=== PATIENT | male | born 1965 | race Caucasian/White ===

== ENCOUNTER 2023-03-01 07:27 | Outpatient (OUT) | payer BC, SELFPAY ==
--- NOTE | 2023-03-01 08:20 | NM_ITS ---
Patient: RANULFO LEE Exam Date: 03/01/2023 : 1965 Gender:M Ordering : EDVIN JAMES [facility] Admission #: [id number] Family : Order #: [id number] CLICK HERE TO VIEW EXAM RADIOLOGY REPORT PROCEDURE: NM JAVIER PERF SPECT REST STR COMPARISON: None. INDICATIONS: Chest pain TECHNIQUE: Exam Description: Stress/Rest two day protocol gated SPECT Rest Imagin.6 mCi Tc-99m Cardiolite IV on 03/02/2023 Stress Imaging 25.3 mCi Tc-99m Cardiolite IV on 03/01/2023 Exercise Protocol: 0.4 mg Lexiscan given IV Heart Rate (bpm): Rest: 71 Max: 89 PMHR: 54 Blood Pressure: Rest: 120/74 Max: 132/74 Symptoms: Rest and peak stress ECG findings were abnormal and the exercise portion of the study was abnormal per attending physician Dr. Santillan due to downsloping inferior leads. For more details please see separate cardiac stress test report. FINDINGS: QUALITY OF STUDY: Excellent. PERFUSION DEFECT: LOCATION: Mid-anteroseptal. Apical septal. SIZE: Small (1-2 segments). SEVERITY: Moderate. TYPE: Reversible. WALL MOTION: Normal. LV SIZE: Enlarged; EDV 125 mL. TID / TCD: None; 1.0 LVEF: Normal. Calculated EF 61%. SUMMARY: Myocardial perfusion imaging study has ABNORMAL findings. CONCLUSION: 1. Mid and apical anterior septal reversible perfusion defect suggestive of acute ischemia. Consideration is also given to anterior soft tissue attenuation artifact. 2. Left ventricle size is at upper limits of normal to minimally enlarged, 125 mL 3. Normal ejection fraction and wall motion. Dictated by: Scottie Kennedy M.D. on 03/02/2023 at 15:10 Approved by: Scottie Kennedy M.D. on 03/02/2023 at 15:19
[2023-03-01] MEDS: REGADENOSON 0.4 MG/5 ML SYRINGE IV (09:12)
--- NOTE | 2023-03-01 18:31 | PM.STRESS ---
Stress Test Stress Test Allergies Allergy/AdvReac Type Severity Reaction Status Date / Time Penicillins Allergy Verified 03/01/23 10:40 Requesting physician: EDVIN JAMES Procedure: Lexiscan stress test General Information: Reason for Stress Test: chest pain Cardiac History and Risk Factors: Denies any Resting 12 - Lead Electrocardiogram: Normal sinus, HR 71. Flattened T-waves across all leads, biphasic in III and aVF Stress Test: Protocol: Lexiscan followed by Cardiolite Blood Pressure Response: Max 132/70 Rhythm: Remained in normal sinus. Max HR 89, 54% max predicted. ST - Response: ST segment downsloping in II, III, and aVF after Lexiscan. Patient Response: None Interpretation: Positive stress test with ST segment downsloping in the inferior leads. Cardiolite interpretation reported separately. Clinical correlation required.
== END 2023-03-01 07:28 ==
PROVIDERS: PCP Family Medicine; Visit Provider Nurse Practitioner Family
DX: R07.89 Other chest pain (principal)
CPT/HCPCS: 78452; 93017; A9500; J2785

== ENCOUNTER 2023-03-14 13:46 | Outpatient (OUT) | payer BC, SELFPAY ==
[2023-03-14 14:52] LABS: Anion Gap 13.2; BUN Creatinine Ratio 13.9; Calcium 8.9 mg/dL (8.5-10.1); Carbon Dioxide 26.5 mmol/L (21.0-32.0); Chloride 102 mmol/L (98-107); Chol HDL Ratio 3.6; Cholesterol 188 mg/dL (<=200); Estimated GFR (African America >60 (>=60); Estimated GFR (Non-African Ame >60 (>=60); Glucose 137 mg/dL (74-106); HDL Cholesterol 52 mg/dL (40-60); Potassium 3.7 mmol/L (3.5-5.1); Sodium 138 mmol/L (136-145); Triglycerides 155 mg/dL (<=150)
== END 2023-03-14 13:47 ==
LOC: LAB 13:47
PROVIDERS: PCP Family Medicine
DX: E78.5 Hyperlipidemia, unspecified (principal); I10 Essential (primary) hypertension
CPT/HCPCS: 36415; 80048; 80061

== ENCOUNTER 2023-04-16 12:00 | Outpatient (OUT) | payer BC, SELFPAY | END 2023-04-16 12:01 | disposition home or self-care (01) | LOC: PST 04-20 18:57 | PROVIDERS: PCP Family Medicine; Visit Provider Surgery | DX: Z01.818 Encounter for other preprocedural examination (principal); R19.5 Other fecal abnormalities ==

== ENCOUNTER 2023-04-17 14:50 | Outpatient (OUT) | payer BC, SELFPAY ==
--- NOTE | 2023-03-02 14:30 | CA_ITS ---
Patient: RANULFO LEE Exam Date: 03/02/2023 : 1965 Gender:M Ordering : EDVIN JAMES [facility] Admission #: [id number] Family : Order #: [id number] CLICK HERE TO VIEW EXAM ECHOCARDIOGRAM REPORT PROCEDURE: CA ECHO DOPPLER COMPLETE INDICATIONS: Chest pain COMPARISON: None. DESCRIPTION: COMPLETE ECHOCARDIOGRAM Real-time transthoracic echocardiography with 2D, M-mode, spectral and color flow Doppler performed. QUALITY: Technically difficult due to patients condition. LEFT VENTRICLE: Normal chamber size. Moderate concentric hypertrophy. Normal systolic function. LV EF: Normal left ventricular ejection fraction, (>55%). DIASTOLIC: Normal diastolic function. ATRIAL SEPTUM: Visually appears intact. LEFT ATRIUM: Normal chamber size. RIGHT ATRIUM: Normal chamber size. RIGHT VENTRICLE: Normal chamber size. Normal right ventricular systolic function. TRICUSPID VALVE: Normal mobility and thickness. No stenosis with trivial regurgitation. MITRAL VALVE: Normal mobility and thickness. No evidence of mitral valve stenosis. There is no mitral annular calcification. No mitral regurgitation. AORTIC VALVE: Normal trileaflet appearance. No visible sclerosis. Normal leaflet mobility. No evidence of aortic valve stenosis. No aortic regurgitation. AORTIC ROOT: Normal diameter and appearance. PULMONIC VALVE: Normal thickness and mobility. No stenosis. No regurgitation. PERICARDIUM: No evidence of pericardial effusion. IVC: Collapses with inspirations. PLEURA: CONCLUSION: 1. Moderate concentric left ventricular hypertrophy with normal systolic function. LVEF is 55 to 60% 2. Normal diastolic function. 3. No significant valvular dysfunction. 4. Unable to assess right-sided pressures due to lack of measurable tricuspid regurgitation. 5. No pericardial effusion. Adult Echocardiography Procedure Report Left Ventricle LVEDD (3.7 - 5.6 cm): 4.12 cm LVESD (2.2 - 4.0 cm): 2.94 cm LVIVS thickness (0.6 - 1.2 cm): 1.50 cm LVPW thickness (0.5 - 1.0 cm): 1.21 cm e': 0.12 m/s E - e': 6.50 LVOT Diameter 2.09 cm Left Atrium Left Atrium Systolic Dimension: 3.32 cm Mitral Valve MV E to A Ratio: 0.90 Mitral Valve A-Wave Peak Velocity: 0.87 m/s Mitral Valve E-Wave Peak Velocity: 0.78 m/s Right Ventricle Aorta AO Root Diam: 3.81 cm Ascending Ao Diam: 3.33 cm Aortic Valve Peak Velocity(Antegrade Flow): 1.84 m/s Peak Gradient(Antegrade Flow): 13.57 mm[Hg] Tricuspid Valve Pulmonic Valve Mean Gradient: 4.26 mm[Hg] Mean Velocity: 0.98 m/s Peak Velocity: 1.37 m/s, 1.35 m/s Peak Gradient: 7.50 mm[Hg], 7.50 mm[Hg], 7.18 mm[Hg] Right Atrium Dictated by: Donnie Angel M.D. on 03/07/2023 at 11:12 Approved by: Donnie Angel M.D. on 03/07/2023 at 11:16
== END 2023-04-17 14:51 | disposition home or self-care (01) ==
PROVIDERS: PCP Family Medicine; Visit Provider Nurse Practitioner Family
DX: R07.89 Other chest pain (principal)
CPT/HCPCS: 93306

== ENCOUNTER 2023-04-25 09:49 | Day surgery (SDC) | payer BC, SELFPAY ==
--- NOTE | 2023-04-25 | OP_ITS ---
OPERATION DATE: ??04/25/2023 PREOPERATIVE DIAGNOSIS:? Colorectal screening. POSTOPERATIVE DIAGNOSIS:? 3 mm rectal polyp. PROCEDURE:? Colonoscopy to cecum with cold snare polypectomy x1 for a 3 mm rectal polyp. SURGEON:? Horacio Bray M.D. ANESTHESIA:? Monitored anesthesia care. ESTIMATED BLOOD LOSS:? Less than 1 mL. INDICATIONS AND CONSENT:? Patient is a 57-year-old male presents for colorectal screening.? Indications, risks, benefits, alternatives of proceeding with colonoscopy were explained extensively to the patient, including the risks of bleeding, colon perforation or anesthetic complications.? All of his questions were answered.? Informed consent was obtained.? PROCEDURE:? Patient brought to the operating room, placed in the left lateral decubitus position.? Monitored anesthesia care was provided.? Rectal exam was performed which showed no masses or blood.? The scope was inserted into the anal canal.? Under direct visualization was advanced.? It was advanced to the cecum where cecal markings were clearly identified.? There was noted to be a good prep.? Upon withdrawal of the scope, mucosal surfaces were carefully examined.? There were no mass lesions or inflammatory changes.? There were rare sigmoid diverticula without inflammatory changes or scarring.? Within the lower rectum, there was noted to be a 3 mm sessile polyp that was removed with cold snare with good hemostasis.? The scope was retroflexed in the anal canal.? There was no significant hemorrhoidal disease.? There were noted to be some prominent rectal veins.? The scope was then withdrawn.? Patient tolerated procedure well.? Follow up colonoscopy will likely be in 5 years, but will depend on the pathology report.? CC:? Sherry Muñoz
[2023-04-25 10:11] VITALS: BP 155/81; PULSE 58; RESP 18; TEMP 36.3; O2SAT 94; BMI 48.8
[2023-04-25 10:18] LABS: Glucometer 134 mg/dL (74-106)
[2023-04-25] MEDS: LACTATED RINGER'S SOLUTION 1,000 ML 50 ML IV (10:24)
[2023-04-25 11:45] VITALS: BP 99/53; PULSE 56; RESP 18; TEMP 36.6; O2SAT 93
[2023-04-25 12:00] VITALS: BP 109/59; PULSE 55; RESP 18; O2SAT 94
[2023-04-25 12:15] VITALS: BP 131/70; PULSE 56; RESP 18; O2SAT 94
== END 2023-04-25 12:15 | disposition home or self-care (01) ==
PROVIDERS: PCP Family Medicine; Visit Provider Surgery
PROC: (CPT 45385; principal; 2023-04-25 12:55)
DX: Z12.11 Encounter for screening for malignant neoplasm of colon (principal); D12.8 Benign neoplasm of rectum; E11.9 Type 2 diabetes mellitus without complications; I10 Essential (primary) hypertension; E66.01 Morbid (severe) obesity due to excess calories; Z68.42 Body mass index [BMI] 45.0-49.9, adult; G47.33 Obstructive sleep apnea (adult) (pediatric); Z79.82 Long term (current) use of aspirin; Z79.84 Long term (current) use of oral hypoglycemic drugs; Z79.899 Other long term (current) drug therapy; R19.5 Other fecal abnormalities
CPT/HCPCS: 45385; 36415; 82948; 88305; J2704

== ENCOUNTER 2023-09-28 11:06 | Outpatient (OUT) | payer BC, SELFPAY ==
[2023-09-28 11:46] LABS: Cholesterol 156 mg/dL (<=200)
[2023-09-28 11:57] LABS: HDL Cholesterol 50 mg/dL (40-60); Triglycerides 204 mg/dL (<=150); VLDL CHOLESTEROL 40.8 mg/dL
[2023-09-28 12:02] LABS: Chol HDL Ratio 3.1
== END 2023-09-28 11:07 | disposition home or self-care (01) ==
LOC: LAB 11:07
PROVIDERS: PCP Family Medicine; Visit Provider Nurse Practitioner Acute Care
DX: E78.2 Mixed hyperlipidemia (principal); I25.10 Atherosclerotic heart disease of native coronary artery without angina pectoris
CPT/HCPCS: 36415; 80061

== ENCOUNTER 2023-11-21 09:34 | Outpatient (OUT) | payer BC, SELFPAY ==
--- OUTSIDE RECORDS SUMMARY | 2023-11-21 09:38 | XMS_ITS | CCD ---
Author Name Unknown Address [address] [facility] [address] [place] [id number] Organization [facility] Care Team Providers Care Custom Bike Builder Name Role Phone ADOLFO ., DR CONRAD Primary Care Unavailable MARKER ., DR DOLL Attending Unavailable MARKER ., DR DOLL Consulting Unavailable MARKER ., DR DOLL Admitting Unavailable JASKARAN WENDY Consulting Unavailable EDVIN JAMES Attending Unavailable EDVIN JAMES Consulting Unavailable EDVIN JAMES Admitting Unavailable HOAdarsh ., DR CONRAD Primary Care Unavailable EDVIN JAMES Consulting Unavailable EDVIN JAMES Admitting Unavailable ADOLFO ., DR CONRAD Primary Care Unavailable EDVIN JAMES Attending Unavailable Anamaria Mata Primary Care Physician Horacio SARABIA Attending Unavailable Anamaria Mata Referring Unavailable Horacio SARABIA Attending Unavailable DONALD SENA Admitting Unavailable DONALD SENA Attending Unavailable DONALD SENA Attending Unavailable RAMOS HARO Attending Unavailable RAMOS HARO Attending Unavailable DONALD SENA Referring Unavailable Allergies Allergy Classification Reported Allergen(s) Allergy Type Date of Onset Reaction(s) Facility (2 sources) Ciprofloxacin; Translations: [Cipro] Drug Allergy 1 [facility] Repository (2 sources) Clindamycin; Translations: [clindamycin] Drug Allergy 1 [facility] (3 sources) Penicillin; Translations: [penicillin] Drug Allergy 1 Anaphylactic reaction [facility] Repository (1 source) Penicillin; Translations: [PENICILLIN G] Drug Allergy 3 [facility] Repository Medications Current Medications Medication Drug Class(es) Dates Sig (Normalized) Sig (Original) allopurinol 300 mg oral tablet (1 source) Xanthine Oxidase Inhibitor Start: 01-11-2021 take 1 tablet by mouth once daily allopurinol 300 mg Tab 300 mg = 1 tab(s), Oral, Daily, Gout pain Start Date: 01/11/21 Status: Ordered aspirin 81 mg delayed release oral tablet (1 source) Platelet Aggregation Inhibitor, Nonsteroidal Anti-inflammatory Drug Start: 03-28-2023 take 1 tablet by mouth once daily aspirin 81 mg Oral EC Tab 81 mg = 1 tab(s), Oral, Daily, Refills(s) 0 Start Date: 03/28/23 Status: Ordered atorvastatin 40 mg oral tablet (1 source) HMG-CoA Reductase Inhibitor Start: 03-28-2023 take 1 tablet by mouth once daily atorvastatin 40 mg Tab 40 mg = 1 tab(s), Oral, Daily, Refills(s) 0 Start Date: 03/28/23 Status: Ordered carvedilol 12.5 mg oral tablet (1 source) alpha-Adrenergic Brayden, beta-Adrenergic Brayden Start: 03-28-2023 take 1 tablet by mouth twice daily carvedilol 12.5 mg Tab 12.5 mg = 1 tab(s), Oral, BID, Refills(s) 0 Start Date: 03/28/23 Status: Ordered colchicine 0.6 mg oral tablet (1 source) Start: 03-07-2023 take 1 tablet by mouth once daily colchicine 0.6 mg Tab 0.6 mg = 1 tab(s), Oral, Daily, Refills(s) 0 Start Date: 03/07/23 Status: Ordered 24 hr isosorbide mononitrate 60 mg extended release oral tablet (1 source) Nitrate Vasodilator Start: 03-28-2023 take 1 tablet by mouth once daily in the morning isosorbide mononitrate 60 mg ER Tab 60 mg = 1 tab(s), Oral, qAM, Refills(s) 0 Start Date: 03/28/23 Status: Ordered metFORMIN hydrochloride 500 mg oral tablet (1 source) Biguanide Start: 03-07-2023 take 1 tablet by mouth twice daily metformin 500 mg Tab 500 mg = 1 tab(s), Oral, BID, Refills(s) 0 Start Date: 03/07/23 Status: Ordered nitroglycerin 0.4 mg sublingual tablet (1 source) Nitrate Vasodilator Start: 03-28-2023 nitroglycerin 0.4 mg sublingual Tab 0.4 mg = 1 tab(s), SubLingual, q5min, PRN for chest pain, Refills(s) 0 Start Date: 03/28/23 Status: Ordered pantoprazole 40 mg delayed release oral tablet (1 source) Proton Pump Inhibitor Start: 03-07-2023 take 1 tablet by mouth once daily Pantoprazole [address] Tab 40 mg = 1 tab(s), Oral, Daily, Refills(s) 0 Start Date: 03/07/23 Status: Ordered Ventolin HFA 90 mcg/inh Aerosol-Adpt (1 source) Start: 03-07-2023 take 1 puff(s) by inhalation every four hours Ventolin HFA 90 mcg/inh Aerosol-Adpt 1 puff(s), Inhalation, q4hr Shortness of breath or wheezing, Refill(s) 0 Start Date: 03/07/23 Status: Ordered Problems Active Problems Problem Classification Problem Date Documented Da te Episodic/Chronic Anxiety disorders (1 source) Anxiety 03-07-2023 Chronic Coronary atherosclerosis and other heart disease (2 sources) Atherosclerotic heart disease of tribal coronary artery without angina pectoris; Translations: [Atherosclerotic heart disease of tribal coronary artery without angina pectoris] Onset: 09-19-2023 Chronic Diabetes mellitus without complication (1 source) Diabetes mellitus 03-07-2023 Chronic Diabetes mellitus without complication (1 source) Other abnormal glucose; Translations: [OTHER ABNORMAL GLUCOSE] Onset: 02-20-2023 Episodic Disorders of lipid metabolism (2 sources) Mixed hyperlipidemia; Translations: [Mixed hyperlipidemia] Onset: 09-19-2023 Chronic Essential hypertension (4 sources) Essential (primary) hypertension; Translations: [Essential hypertension] Onset: 02-14-2023 03-07-2023 Chronic Gout and other crystal arthropathies (2 sources) Gout, unspecified; Translations: [Gout] Onset: 02-14-2023 01-11-2021 Chronic Nonspecific chest pain (4 sources) Other chest pain; Translations: [OTHER CHEST PAIN] Onset: 02-20-2023 Episodic Osteoarthritis (1 source) Arthritis 01-11-2021 Chronic Other aftercare (1 source) Other jail (current) drug therapy; Translations: [OTH ASSISTED CURRENT DRUG THERAPY] Onset: 02-14-2023 Episodic Other aftercare (1 source) 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; Translations: [ASSISTED USE ORAL HYPOGLYCEMIC DX] Onset: 02-14-2023 Episodic Other connective tissue disease (1 source) Disorder of rotator cuff 03-07-2023 Episodic Comment on above: LEFT SHOULDER Other gastrointestinal disorders (1 source) Abnormal feces; Translations: [Other fecal abnormalities] Onset: 03-28-2023 Episodic Other gastrointestinal disorders (1 source) Occult blood in stools 03-07-2023 Episodic Other lower respiratory disease (1 source) Shortness of breath; Translations: [SHORTNESS OF BREATH] Onset: 02-14-2023 Episodic Other nutritional; endocrine; and metabolic disorders (1 source) Obesity, unspecified; Translations: [OBESITY UNSPECIFIED] Onset: 02-14-2023 Chronic Other nutritional; endocrine; and metabolic disorders (1 source) Body mass index (BMI) 45.0-49.9, adult; Translations: [BODY MASS INDEX BMI 45.0-49.9 ADULT] Onset: 02-14-2023 Chronic Other nutritional; endocrine; and metabolic disorders (2 sources) Body mass index 40+ - severely obese; Translations: [Body mass index (BMI) 45.0-49.9, adult] Onset: 03-28-2023 Chronic Other nutritional; endocrine; and metabolic disorders (1 source) Morbid obesity 03-28-2023 Chronic Residual codes; unclassified (1 source) Sleep apnea 03-07-2023 Chronic Residual codes; unclassified (3 sources) Flushing; Translations: [FLUSHING] Onset: 02-13-2023 Episodic Unclassified (1 source) CONTACT W/AND (SUSP) EXPOS COVID-19; Translations: [CONTACT W/AND (SUSP) EXPOS COVID-19] Onset: 02-14-2023 Unclassified (1 source) PERSONAL HISTORY OF COVID-19; Translations: [PERSONAL HISTORY OF COVID-19] Onset: 02-14-2023 Past or Other Problems Problem Classification Problem Date Documented Da te Episodic/Chronic Other screening for suspected conditions (not mental disorders or infectious disease) (4 sources) Encounter for screening for malignant neoplasm of prostate; Translations: [Encounter for screening for malignant neoplasm of rectum] Onset: 02-20-2023 Episodic Results Test Name Value Interpretation Reference Range Facility Office Visiton 09-19-2023 Follow-up visit [id number] Leander Ortiz 1965 M Date Provider Department Center 09/19/2023 DONALD SMITH [facility]ARD [facility] Family History Problem Relation Age of Onset No Known Problems Mother No Known Problems Father Family Status - Relation Status Age at Mother Father Level of Service:88581 MD OFFICE/OUTPATIENT ESTABLISHED LOW MDM 20 MIN Normal [facility] Reminderson 05-10-2023 Reminders - From: Julia Toribio LPN To: N - Clinical; Sent: 05/10/2023 10:41:47 EDT Show up: 03/26/2028 07:00:00 EDT Subject: colonoscopy recall Due Date/Time: 04/25/2028 07:00:00 EDT Reminder/Recall Patient due for surveillance colonoscopy 04/25/2028. Normal [facility] Office Visiton 05-08-2023 Follow-up visit [id number] MicvikijvuenalLeander Mayo 1965 M Date Provider Department Center 05/08/2023 RAMOS VILLARREAL [facility] Family History Problem Relation Age of Onset No Known Problems Mother No Known Problems Father Family Status - Relation Status Age at Mother Father Level of Service:10469 MD OFFICE/OUTPATIENT ESTABLISHED MOD MDM 30-39 MIN Normal [facility] Pathology Noteon 05-01-2023 Pathology Note [id number] #1.00CD:[address] [facility] Outside Colonoscopyon 2022 Outside Colonoscopy [id number] #1.00CD:[address] [facility] Lab Reportson 04-25-2023 Lab Reports [id number] #1.00CD:[address] [facility] CBCon 04-04-2023 Erythrocyte distribution width (RBC) [Ratio] 13.4 % Normal 11.5-15.0 [facility] Comment on above: Performed By: #### L [id number] ####[facility] (BEAKER)[address] [place] [address] ERYTHROCYTE MEAN CORPUSCULAR HEMOGLOBIN CONCENTRATION (G/DL) BY AUTOMATED 34.1 g/dL Normal 32.0-35.0 [facility] Comment on above: Performed By: #### L [id number] ####[facility] (BEAKER)[address] [place] [address] Hematocrit (Bld) [Volume fraction] 40.5 % Normal 39.0-55.0 [facility] Comment on above: Performed By: #### L [id number] ####[facility] (BEAKER)[address] [place] [address] Hemoglobin (Bld) [Mass/Vol] 13.8 g/dL Normal 13.0-17.0 [facility] Comment on above: Performed By: #### L [id number] ####[facility] (BEAKER)[address] [place] [address] MCH (RBC) [Entitic mass] 31.8 pg Normal 27.0-33.0 [facility] Comment on above: Performed By: #### L [id number] ####[facility] (BEAKER)[address] [place] [address] MCV (RBC) [Entitic vol] 93.3 fL Normal 82.0-98.0 [facility] Comment on above: Performed By: #### L [id number] ####[facility] (BEAKER)[address] [place] [address] PLATELETS (10*3/UL) IN BLOOD AUTOMATED COUNT 224 10*3/uL Normal 150-400 [facility] Comment on above: Performed By: #### L [id number] ####[facility] (BEAKER)[address] [place] [address] RBC (Bld) [#/Vol] 4.34 10*6/uL Normal 4.20-5.70 [facility] Comment on above: Performed By: #### L [id number] ####[facility] (BEAKER)[address] [place] [address] WBC (Bld) [#/Vol] 9.13 10*3/uL Normal 4.00-10.[address] [facility] Comment on above: Performed By: #### L [id number] ####[facility] (MULUGETA)[address] [place] [address] HPon 04-04-2023 HP H&P reviewed. The patient was examined and there are no changes to the H&P. Normal [facility] NURSNOTEon 04-04-2023 NURSNOTE RN educated pt on d/c instructions. RN encouraged pt to voice any questions or concerns. Pt verbalizes no questions or concerns at this time. Pt was wheeled off of unit with all of belongings. [facility] Consent for Procedure/Surger yon 03-29-2023 Consent for Procedure/Surgery [id number] #1.00CD:[address] [facility] Facesheeton 03-29-2023 Facesheet [id number] #1.00CD:[address] [facility] Transfer Inon 03-29-2023 Transfer In [id number]# 1.00CD:[address] [facility] Ambulatory Visit Summaryon 0 03-28-2023 Ambulatory Visit Summary LEANDER ORTIZ :1965 Visit Date:03/28/2023 Ambulatory Visit Instructions Your Diagnosis Positive fecal occult blood test BMI 45.0-49.9, adult Your Care Team Attending Physician - NO LUIS, Horacio Lowery Primary Care Physician - Adolfo LUIS, Anamaria Referring Physician - Anamaria Mata MD This Is Your Medications List Contact prescribing physician if questions or concerns albuterol (Ventolin HFA 90 mcg/inh Aerosol-Adpt) allopurinol (allopurinol 300 mg Tab) aspirin (aspirin 81 mg Oral EC Tab) atorvastatin (atorvastatin 40 mg Tab) carvedilol (carvedilol 12.5 mg Tab) colchicine (colchicine 0.6 mg Tab) isosorbide mononitrate (isosorbide mononitrate 60 mg ER Tab) metformin (metformin 500 mg Tab) nitroglycerin (nitroglycerin 0.4 mg sublingual Tab) pantoprazole (Pantoprazole [address] Tab) Procedures Performed Arthroscopy of shoulder (01/18/2021), Arthroscopy of knee, Colonoscopy, Tonsillectomy and adenoidectomy, Uvulectomy. Discharge Vitals Heart Rate (Peripheral) 76 Respiratory Rate 16 Blood Pressure 122/84 Height 175.2 cm Height 69 in Weight 150.7 kg Weight 331.54 lb BMI 49.1 Medications What How Much When Instructions Unchanged albuterol (Ventolin HFA 90 mcg/ inh Aerosol-Adpt) 1 Puffs Inhalation Every 4 hours as needed for Shortness of breath or wheezing Contact prescribing physician if questions or concerns Unchanged allopurinol (allopurinol 300 mg Tab) 1 Tablets By Mouth Every day Contact prescribing physician if questions or concerns Unchanged aspirin (aspirin 81 mg Oral EC Tab) 1 Tablets By Mouth Every day Contact prescribing physician if questions or concerns Unchanged atorvastatin (atorvastatin 40 mg Tab) 1 Tablets By Mouth Every day Contact prescribing physician if questions or concerns Unchanged carvedilol (carvedilol 12.5 mg Tab) 1 Tablets By Mouth 2 times a day Contact prescribing physician if questions or concerns Unchanged colchicine (colchicine 0.6 mg Tab) 1 Tablets By Mouth Every day Contact prescribing physician if questions or concerns Unchanged isosorbide mononitrate (isosorbide mononitrate 60 mg ER Tab) 1 Tablets By Mouth Once a day (in the morning) Contact prescribing physician if questions or concerns Unchanged metformin (metformin 500 mg Tab) 1 Tablets By Mouth 2 times a day Contact prescribing physician if questions or concerns Unchanged nitroglycerin (nitroglycerin 0.4 mg sublingual Tab) 1 Tablets Sublingual Every 5 minutes as needed for for chest pain Contact prescribing physician if questions or concerns Unchanged pantoprazole (Pantoprazole [address] Tab) 1 Tablets By Mouth Every day Contact prescribing physician if questions or concerns Allergies penicillin (Anaphylactic reaction) Problems Ongoing - Any problem that you are currently receiving treatment for. Anxiety Arthritis BMI 45.0-49.9, adult Diabetes Essential hypertension Gout Morbid obesity Positive fecal occult blood test Sleep apnea Historical - Any problem that you are no longer receiving treatment for. RCT (rotator cuff tear) Normal [facility] Orders Onlyon 03-26-2023 Orders Only [id number] Leander Ortiz 1965 M Date Provider Department Center 03/26/2023 C[facility]AR [facility] No family history on file Normal [facility] HPon 03-14-2023 Cardiology Clinic Note Subjective Leander Ortiz is a 57 y.o. year old male patient with past medical history of gout and prediabetes who is seen in consultation for abnormal stress test. He developed shortness of breath and chest heaviness after getting out of the shower about a month ago. He presented to the emergency department for evaluation where he reports a negative work-up. He was seen in follow-up by his PCP and recommended a stress test as well as an echocardiogram. Echocardiogram was unremarkable, stress test was abnormal with mid and apical septal reversible ischemic defect. He reports experiencing intermittent dyspnea as well as some chest tightness on exertion since then, last occurrence about a week ago. He has been monitoring his blood pressure at home which ranges in the 140s-160 systolic and 70s-90s diastolic. He is on metformin for treatment of prediabetes. He has never smoked. No known history of hyperlipidemia. He has no known family history of coronary artery disease or sudden cardiac . Patient Active Problem List Diagnosis Gout Obesity S/P arthroscopy of shoulder Abnormal stress test Review of Systems Cardiovascular: Positive for chest pain and dyspnea on exertion. Negative for claudication, irregular heartbeat, leg swelling, near-syncope, orthopnea, palpitations, paroxysmal nocturnal dyspnea and syncope. Objective Visit Vitals BP (!) 159/97 Pulse 89 Wt (!) 148 kg (326 lb 12.8 oz) SpO2 99% Physical Exam General: Awake, alert, NAD Pulm: Distant breath sounds Cards: Regular rate and rhythm, S1, S2. No S3 or S4 gallop. Murmur: none Abd: Soft, Nontender, physiologic bowel sounds are present Extr: Lower extremity edema: None. DP pulses:2+ Skin: warm, dry, well perfused Neuro: A&Ox3, No gross deficits Allergies Allergies Allergen Reactions Penicillin G Medications Current Outpatient Medications: allopurinol (Zyloprim) 300 mg tablet, Take 300 mg by mouth., Disp: , Rfl: colchicine 0.6 mg tablet, 2 tablets for initial dose , then 1 tablet hourly until symptoms resolve or diarrhea Orally hourly for 1 day, Disp: , Rfl: HYDROcodone-acetamin ophen ([place]) 5-325 mg tablet, Take by mouth., Disp: , Rfl: ibuprofen 800 mg tablet, Take 800 mg by mouth., Disp: , Rfl: metFORMIN (Glucophage) 500 mg tablet, Take 500 mg by mouth in the morning and at bedtime., Disp: , Rfl: pantoprazole (ProtoNix) 40 mg EC tablet, Take 40 mg by mouth in the morning., Disp: , Rfl: allopurinol (Zyloprim) 300 mg tablet, Take 300 mg by mouth in the morning., Disp: , Rfl: aspirin 81 mg chewable tablet, Chew 1 tablet (81 mg) in the morning., Disp: 90 tablet, Rfl: 3 atorvastatin (Lipitor) 40 mg tablet, Take 1 tablet (40 mg) by mouth in the morning., Disp: 90 tablet, Rfl: 0 carvedilol (Coreg) 12.5 mg tablet, Take 1 tablet (12.5 mg) by mouth with breakfast and with evening meal., Disp: 180 tablet, Rfl: 0 colchicine 0.6 mg tablet, take 1 tablet by mouth every 4 hours if needed for pain - MAX 2 TABLETS DAILY, Disp: , Rfl: isosorbide mononitrate ER (Imdur) 60 mg 24 hr tablet, Take 1 tablet (60 mg) by mouth in the morning. Do not crush or chew., Disp: 90 tablet, Rfl: 3 nitroglycerin (Nitrostat) 0.4 mg SL tablet, Place 1 tablet (0.4 mg) under the tongue every 5 (five) minutes if needed for chest pain. May repeat dose every 5 minutes for up to 3 doses total., Disp: 100 tablet, Rfl: 0 oseltamivir (Tamiflu) 75 mg capsule, Take 75 mg by mouth in the morning and at bedtime., Disp: , Rfl: oxyCODONE (Roxicodone) 5 mg immediate release tablet, Take 5 mg by mouth., Disp: , Rfl: Paxlovid, EUA, 300 mg (150 mg x 2)-100 mg tablets,dose pack, take 2 NIRMATRELVIR tablets with 1 RITONAVIR tablet twice a day f... (REFER TO PRESCRIPTION NOTES)., Disp: , Rfl: predniSONE (Deltasone) 20 mg tablet, Take 60 mg by mouth in the morning., Disp: , Rfl: triamcinolone (Kenalog) 0.1 % cream, APPLY EXTERNALLY TWICE DAILY, Disp: , Rfl: Recent Labs 02/13/2023 WBC 11.5, hemoglobin 14.6, hematocrit 43.8, platelets 224 Sodium 141, potassium 4.3, chloride 102, CO2 26.6, glucose 142, BUN 11, creatinine 0.96, estimated GFR greater than 60% NT proBNP 24 High sensitive troponin 5.1 Imaging and other tests Echocardiogram: 03/02/2023 Moderate concentric left ventricular hypertrophy with normal systolic function. LVEF is 55 to 60% Normal diastolic function No significant valvular dysfunction Unable to assess right-sided pressures due to lack of measurable tricuspid regurgitation No pericardial effusion Stress test: 03/01/2023 Mid and apical anterior septal reversible perfusion defect suggestive of acute ischemia. Consideration is also given to anterior soft tissue attenuation artifact Left ventricular size is upper limits of normal to minimally enlarged, 125 mL Normal ejection fraction and wall motion Assessment Diagnoses and all orders for this visit: Cardiovascular stre (more content not included)... Normal [facility] Office Visiton 03-14-2023 Follow-up visit [id number] Leander Ortiz 1965 M Date Provider Department Center 03/14/2023 [id number] HARO [facility] No family history on file Level of Service:50373 MD OFFICE/OUTPATIENT NEW MODERATE MDM 45-59 MINUTES Reason for Visit and Comments: Shortness of Breath [687047] Leg Swelling [587081] Normal [facility] Consultation Noteon 03-01-20 Consultation Note [id number] #1.00CD:[address] [facility] Lab Reportson 03-01-2023 Lab Reports [id number] #1.00CD:[address] [facility] Patient Correspondenceon Patient Correspondence [id number] #1.00CD:[address] [facility] OCC BLD IMMUNO SCREENon 01-30 OCCULT BLOOD Positive Abnormal NEGATIVE [facility] Comment on above: Performed By: #### O BSCRN #### [facility] [address] [address] [address] Allen Alonzo INSULINon 02-20-2023 Insulin 17.1 uIU/mL Normal 2.6-24.9 [facility] Comment on above: Performed By: #### I NSULIN #### [facility] [address] [place] [address] Dr. Allen Alonzo CBC AUTO DIFFon 02-19-2023 BASO # 0.1 103/ul Normal 0.0-0.1 [facility] Comment on above: Performed By: #### C BC #### [facility] [address] [place] [address] Dr. Allen Alonzo Basophils/100 WBC (Bld) 1.1 % Normal 0.2-2.0 [facility] Comment on above: Performed By: #### C BC #### [facility] [address] [place] [address] Dr. Allen Alonzo EO # 0.8 103/ul Critically high 0.0-0.7 [facility] Comment on above: Performed By: #### C BC #### [facility] [address] [place] [address] Dr. Allen Alonzo Eosinophils/100 WBC (Bld) 7.3 % Critically high 0.9-7.0 [facility] Comment on above: Performed By: #### C BC #### [facility] [address] [place] [address] Dr. Allen Alonzo Erythrocyte distribution width (RBC) [Ratio] 12.3 % Normal 11.0-15.0 [facility] Comment on above: Performed By: #### C BC #### [facility] [address] [place] [address] Dr. Allen Alonzo Hematocrit (Bld) [Volume fraction] 39.3 % Critically low 42.0-54.0 [facility] Comment on above: Performed By: #### C BC #### [facility] [address] [place] [address] Dr. Allen Alonzo Hemoglobin (Bld) [Mass/Vol] 13.7 g/dL Critically low 14.0-18.0 [facility] Comment on above: Performed By: #### C BC #### [facility] [address] [place] [address] Dr. Allen Alonzo IG # 0.02 10e3/ul Normal 0.00-0.03 [facility] Comment on above: Performed By: #### C BC #### [facility] [address] [place] [address] Dr. Allen Alonzo IG % 0.2 % Normal 0.0-0.5 [facility] Comment on above: Performed By: #### C BC #### [facility] [address] [place] [address] Dr. Allen Alonzo LYMPH # 4.8 103/ul Critically high 1.2-3.8 [facility] Comment on above: Performed By: #### C BC #### [facility] [address] [place] [address] Dr. Allen Alonzo Lymphocytes/100 WBC (Bld) 43.2 % Normal 20.5-60.0 [facility] Comment on above: Performed By: #### C BC #### [facility] [address] [place] [address] Dr. Allen Alonzo MANUAL DIFF REQ NO Normal [facility] Comment on above: Performed By: #### C BC #### [facility] [address] [place] [address] Dr. Allen Alonzo MCH (RBC) [Entitic mass] 32.0 pg Normal 25.9-34.0 [facility] Comment on above: Performed By: #### C BC #### [facility] [address] [place] [address] Dr. Allen Alonzo MCHC (RBC) [Mass/Vol] 34.9 g/dL Normal 29.9-35.2 [facility] Comment on above: Performed By: #### C BC #### [facility] [address] [place] [address] Dr. Allen Alonzo MCV (RBC) [Entitic vol] 91.8 fL Normal 80.0-94.0 [facility] Comment on above: Performed By: #### C BC #### [facility] [address] [address] [address] Allen Alonzo MONO # 0.8 103/ul Normal 0.3-0.8 [facility] Comment on above: Performed By: #### C BC #### [facility] [address] [address] [address] Allen Alonzo Monocytes/100 WBC (Bld) 6.7 % Normal 1.7-12.0 [facility] Comment on above: Performed By: #### C BC #### [facility] [address] [address] [address] Allen Alonzo NEUT # 4.6 103/ul Normal 1.4-6.5 [facility] Comment on above: Performed By: #### C BC #### [facility] [address] [address] [address] Allen Alonzo Neutrophils/100 WBC (Bld) 41.5 % Critically low 43.0-75.0 [facility] Comment on above: Performed By: #### C BC #### [facility] [address] [address] [address] Allen Alonzo Platelet mean volume (Bld) [Entitic vol] 10.6 fL Normal 9.5-13.5 [facility] Comment on above: Performed By: #### C BC #### [facility] [address] [address] [address] Allen Alonzo PLT 212 103/ul Normal 150-450 [facility] Comment on above: Performed By: #### C BC #### [facility] [address] [address] [address] Allen Alonzo RBC 4.28 106/ul Critically low 4.70-6.10 [facility] Comment on above: Performed By: #### C BC #### [facility] [address] [address] [address] Allen Alonzo WBC 11.2 103/ul Critically high 4.0-11.0 [facility] Comment on above: Performed By: #### C BC #### [facility] [address] [address] [address] Allen Alonzo FREE T3on 02-19-2023 FREE T3 2.20 pg/mlL Normal 2.18-3.98 [facility] Comment on above: Performed By: #### L IPID, TSH, CMP, T4, URIC, FT3 #### [facility] [address] [address] [address] Allen Alonzo GLYCOHEMOGLOBIN A1Con 2022 ADA RECOMMENDATION SEE BELOW Normal [facility] Comment on above: Result Comment: ADA RECOMMENDED LIMIT 4.0 - 6.0 ADA THERAPEUTIC TARGET < 7.0 ACTION SUGGESTED > 7.0 Performed By: #### A 1C #### [facility] [address] [place] [address] Dr. Allen Alonzo Glucose [Mass/Vol] 183 mg/dL Normal [facility] Comment on above: Performed By: #### A 1C #### [facility] [address] [address] [address] Allen Alonzo HbA1c (Bld) [Mass fraction] 8.0 % Critically high 4.5-6.2 [facility] Comment on above: Performed By: #### A 1C #### [facility] [address] [place] [address] Dr. Allen Alonzo LIPID PROFILEon 02-19-2023 CHOL-HDL RATIO NORM SEE BELOW Normal [facility] Comment on above: Result Comment: 3.3 - 4.4 LOW RISK 4.4 - 7.1 AVERAGE RISK 7.1 - 11.0 MODERATE RISK >11.0 HIGH RISK Performed By: #### L IPID, TSH, CMP, T4, URIC, FT3 #### [facility] [address] [address] [address] Allen Alonzo Cholesterol [Mass/Vol] 181 mg/dL Normal <=200 [facility] Comment on above: Performed By: #### L IPID, TSH, CMP, T4, URIC, FT3 #### [facility] [address] [address] [address] Allen Alonzo Cholesterol in HDL [Mass/Vol] 44 mg/dL Normal 40-60 [facility] Comment on above: Performed By: #### L IPID, TSH, CMP, T4, URIC, FT3 #### [facility] [address] [address] [address] Allen Alonzo Cholesterol in LDL [Mass/Vol] 87.0 mg/dL Normal [facility] Comment on above: Performed By: #### L IPID, TSH, CMP, T4, URIC, FT3 #### [facility] [address] [address] [address] Allen Alonzo Cholesterol.total/Cho lesterol in HDL [Mass ratio] 4.1 {ratio} Normal [facility] Comment on above: Performed By: #### L IPID, TSH, CMP, T4, URIC, FT3 #### [facility] [address] [place] [address] Dr. Allen Alonzo HDL NORMAL > or = 60 mg/dl - LOW CARDIOVASCULAR RISK <40 mg/dl - HIGH CARDIOVASCULAR RISK Normal [facility] Comment on above: Performed By: #### L IPID, TSH, CMP, T4, URIC, FT3 #### [facility] [address] [place] [address] Dr. Allen Alonzo LDL CALC NORMAL SEE BELOW Normal [facility] Comment on above: Result Comment: <100 mg/dl OPTIMAL 100 - 129 mg/dl NEAR OR ABOVE OPTIMAL 130 - 159 mg/dl BORDERLINE HIGH 160 - 189 mg/dl HIGH >190 mg/dl VERY HIGH Performed By: #### L IPID, TSH, CMP, T4, URIC, FT3 #### [facility] [address] [address] [address] Allen Alonzo Triglyceride [Mass/Vol] 250 mg/dL Critically high <=150 [facility] Comment on above: Performed By: #### L IPID, TSH, CMP, T4, URIC, FT3 #### [facility] [address] [address] [address] Allen Alonzo VLDL CALC 50.0 mg/dL Normal [facility] Comment on above: Performed By: #### L IPID, TSH, CMP, T4, URIC, FT3 #### [facility] [address] [place] [address] Dr. Allen Alonzo PROF 14(COMP METB)on 023 Albumin [Mass/Vol] 3.6 g/dL Normal 3.4-5.0 [facility] Comment on above: Performed By: #### L IPID, TSH, CMP, T4, URIC, FT3 #### [facility] [address] [place] [address] Dr. Allen Alonzo Albumin/Globulin [Mass ratio] 1.0 {ratio} Normal [facility] Comment on above: Performed By: #### L IPID, TSH, CMP, T4, URIC, FT3 #### [facility] [address] [place] [address] Dr. Allen Alonzo ALP [Catalytic activity/Vol] 97 U/L Normal 46-116 [facility] Comment on above: Performed By: #### L IPID, TSH, CMP, T4, URIC, FT3 #### [facility] [address] [place] [address] Dr. Allen Alonzo ALT [Catalytic activity/Vol] 61 U/L Normal 16-63 [facility] Comment on above: Performed By: #### L IPID, TSH, CMP, T4, URIC, FT3 #### [facility] [address] [place] [address] Dr. Allen Alonzo Anion gap [Moles/Vol] 14.8 mmol/L Normal [facility] Comment on above: Performed By: #### L IPID, TSH, CMP, T4, URIC, FT3 #### [facility] [address] [place] [address] Dr. Allen Alonzo AST [Catalytic activity/Vol] 31 U/L Normal 15-37 [facility] Comment on above: Performed By: #### L IPID, TSH, CMP, T4, URIC, FT3 #### [facility] [address] [place] [address] Dr. Allen Alonzo Bilirubin [Mass/Vol] 0.5 mg/dL Normal 0.2-1.0 [facility] Comment on above: Performed By: #### L IPID, TSH, CMP, T4, URIC, FT3 #### [facility] [address] [address] [address] Allen Alonzo Calcium [Mass/Vol] 8.8 mg/dL Normal 8.5-10.1 [facility] Comment on above: Performed By: #### L IPID, TSH, CMP, T4, URIC, FT3 #### [facility] [address] [place] [address] Dr. Allen Alonzo Chloride [Moles/Vol] 100 mmol/L Normal 98-107 [facility] Comment on above: Performed By: #### L IPID, TSH, CMP, T4, URIC, FT3 #### [facility] [address] [place] [address] Dr. Allen Alonzo CO2 [Moles/Vol] 28.2 mmol/L Normal 21.0-32.0 [facility] Comment on above: Performed By: #### L IPID, TSH, CMP, T4, URIC, FT3 #### [facility] [address] [place] [address] Dr. Allen Alonzo Creatinine [Mass/Vol] 0.91 mg/dL Normal 0.70-1.30 [facility] Comment on above: Performed By: #### L IPID, TSH, CMP, T4, URIC, FT3 #### [facility] [address] [place] [address] Dr. Allen Alonzo EGFR-AF FRENCH >60 Normal >=60 [facility] Comment on above: Performed By: #### L IPID, TSH, CMP, T4, URIC, FT3 #### [facility] [address] [place] [address] Dr. Allen Alonzo EGFR-NON AF FRENCH >60 Normal >=60 [facility] Comment on above: Performed By: #### L IPID, TSH, CMP, T4, URIC, FT3 #### [facility] [address] [place] [address] Dr. Allen Alonzo Globulin (S) [Mass/Vol] 3.5 g/dL Normal [facility] Comment on above: Performed By: #### L IPID, TSH, CMP, T4, URIC, FT3 #### [facility] [address] [address] [address] Allen Alonzo Glucose [Mass/Vol] 132 mg/dL Critically high 74-106 [facility] Comment on above: Performed By: #### L IPID, TSH, CMP, T4, URIC, FT3 #### [facility] [address] [place] [address] Dr. Allen Alonzo Potassium [Moles/Vol] 4.0 mmol/L Normal 3.5-5.1 [facility] Comment on above: Performed By: #### L IPID, TSH, CMP, T4, URIC, FT3 #### [facility] [address] [place] [address] Dr. Allen Alonzo Protein [Mass/Vol] 7.1 g/dL Normal 6.4-8.2 [facility] Comment on above: Performed By: #### L IPID, TSH, CMP, T4, URIC, FT3 #### [facility] [address] [place] [address] Dr. Allen Alonzo Sodium [Moles/Vol] 139 mmol/L Normal 136-145 [facility] Comment on above: Performed By: #### L IPID, TSH, CMP, T4, URIC, FT3 #### [facility] [address] [place] [address] Dr. Allen Alonzo Urea nitrogen [Mass/Vol] 13.0 mg/dL Normal 7.0-18.0 [facility] Comment on above: Performed By: #### L IPID, TSH, CMP, T4, URIC, FT3 #### [facility] [address] [place] [address] Dr. Allen Alonzo Urea nitrogen/Creatinine [Mass ratio] 14.3 mg/mg Normal [facility] Comment on above: Performed By: #### L IPID, TSH, CMP, T4, URIC, FT3 #### [facility] [address] [place] [address] Dr. Allen Alonzo T4on 02-19-2023 T4 [Mass/Vol] 7.10 ug/dL Normal 4.50-12.10 [facility] Comment on above: Performed By: #### C BC #### [facility] [address] [place] [address] Dr. Allen Alonzo TSHon 02-19-2023 TSH 3.600 uIU/mL Normal 0.358-3.740 [facility] Comment on above: Performed By: #### L IPID, TSH, CMP, T4, URIC, FT3 #### [facility] [address] [place] [address] Dr. Allen Alonzo URIC ACID SERUMon 02-19-2023 Urate [Mass/Vol] 6.4 mg/dL Normal 3.5-7.2 [facility] Comment on above: Performed By: #### C BC #### [facility] [address] [place] [address] Dr. Allen Alonzo BNPon 02-13-2023 Natriuretic peptide B (Bld) [Mass/Vol] 24.0 pg/mL Normal <=900.0 [facility] Comment on above: Performed By: #### C BC #### [facility] [address] [place] [address] Dr. Allen Alonzo CBC AUTO DIFFon 02-13-2023 BASO # 0.1 103/ul Normal 0.0-0.1 [facility] Comment on above: Performed By: #### C BC #### [facility] [address] [place] [address] Dr. Allen Alonzo Basophils/100 WBC (Bld) 0.8 % Normal 0.2-2.0 [facility] Comment on above: Performed By: #### C BC #### [facility] [address] [place] [address] Dr. Allen Alonzo EO # 0.8 103/ul Critically high 0.0-0.7 [facility] Comment on above: Performed By: #### C BC #### [facility] [address] [place] [address] Dr. Allen Alonzo Eosinophils/100 WBC (Bld) 6.5 % Normal 0.9-7.0 [facility] Comment on above: Performed By: #### C BC #### [facility] [address] [place] [address] Dr. Allen Alonzo Erythrocyte distribution width (RBC) [Ratio] 12.6 % Normal 11.0-15.0 [facility] Comment on above: Performed By: #### C BC #### [facility] [address] [place] [address] Dr. Allen Alonzo Hematocrit (Bld) [Volume fraction] 43.8 % Normal 42.0-54.0 [facility] Comment on above: Performed By: #### C BC #### [facility] [address] [place] [address] Dr. Allen Alonzo Hemoglobin (Bld) [Mass/Vol] 14.6 g/dL Normal 14.0-18.0 [facility] Comment on above: Performed By: #### C BC #### [facility] [address] [place] [address] Dr. Allen Alonzo IG # 0.04 10e3/ul Critically high 0.00-0.03 [facility] Comment on above: Performed By: #### C BC #### [facility] [address] [place] [address] Dr. Allen Alonzo IG % 0.3 % Normal 0.0-0.5 [facility] Comment on above: Performed By: #### C BC #### [facility] [address] [place] [address] Dr. Allen Alonzo LYMPH # 3.6 103/ul Normal 1.2-3.8 [facility] Comment on above: Performed By: #### C BC #### [facility] [address] [place] [address] Dr. Allen Alonzo Lymphocytes/100 WBC (Bld) 31.0 % Normal 20.5-60.0 [facility] Comment on above: Performed By: #### C BC #### [facility] [address] [place] [address] Dr. Allen Alonzo MANUAL DIFF REQ NO Normal [facility] Comment on above: Performed By: #### C BC #### [facility] [address] [address] [address] Allen Alonzo MCH (RBC) [Entitic mass] 31.1 pg Normal 25.9-34.0 [facility] Comment on above: Performed By: #### C BC #### [facility] [address] [place] [address] Dr. Allen Alonzo MCHC (RBC) [Mass/Vol] 33.3 g/dL Normal 29.9-35.2 [facility] Comment on above: Performed By: #### C BC #### [facility] [address] [place] [address] Dr. Allen Alonzo MCV (RBC) [Entitic vol] 93.4 fL Normal 80.0-94.0 [facility] Comment on above: Performed By: #### C BC #### [facility] [address] [place] [address] Dr. Allen Alonzo MONO # 0.8 103/ul Normal 0.3-0.8 [facility] Comment on above: Performed By: #### C BC #### [facility] [address] [place] [address] Dr. Allen Alonzo Monocytes/100 WBC (Bld) 6.9 % Normal 1.7-12.0 [facility] Comment on above: Performed By: #### C BC #### [facility] [address] [place] [address] Dr. Allen Alonzo NEUT # 6.3 103/ul Normal 1.4-6.5 [facility] Comment on above: Performed By: #### C BC #### [facility] [address] [place] [address] Dr. Allen Alonzo Neutrophils/100 WBC (Bld) 54.5 % Normal 43.0-75.0 [facility] Comment on above: Performed By: #### C BC #### [facility] [address] [place] [address] Dr. Allen Alonzo Platelet mean volume (Bld) [Entitic vol] 10.8 fL Normal 9.5-13.5 [facility] Comment on above: Performed By: #### C BC #### [facility] [address] [place] [address] Dr. Allen lAonzo PLT 224 103/ul Normal 150-450 [facility] Comment on above: Performed By: #### C BC #### [facility] [address] [place] [address] Dr. Allen Alonzo RBC 4.69 106/ul Critically low 4.70-6.10 [facility] Comment on above: Performed By: #### C BC #### [facility] [address] [place] [address] Dr. Allen Alonzo WBC 11.5 103/ul Critically high 4.0-11.0 [facility] Comment on above: Performed By: #### C BC #### [facility] [address] [place] [address] Dr. Allen Alonzo Covid-19 PCR (CVDTBH)on 01-29 SARS-CoV-2 (COVID-19) RNA ZOLTAN+probe Ql (Unsp spec) Not detected Normal NOT DETECTED [facility] Comment on above: Result Comment: THIS TEST IS NOT APPROVED BY THE FDA. IT HAS BEEN AUTHORIZED FOR USE UNDER AN EMERGENCY USE AUTHORIZATION. Performed By: #### C BC #### [facility] [address] [place] [address] Dr. Allen Alonzo D-DIMERon 02-13-2023 D-DIMER 0.55 mg/L FEU Normal <=0.59 [facility] Comment on above: Performed By: #### C BC #### [facility] [address] [place] [address] Dr. Allen Alonzo D-DIMER COMMENTS SEE BELOW Normal [facility] Comment on above: Result Comment: Incr eases in D-Dimer concentration observed with thromboembolic events can be variable due to localization, size, and age of the thrombus. Therefore, a thromboembolic event cannot be diagnosed with certainty on the basis of the reference range. D-Dimers may also be elevated for a variety of disorders including: advanced age, , coronary disease, cancer, liver disease, infection, inflammation, hematoma, DIC, trauma, post-surgery, diabetes, thrombolytic or anticoagulant therapy, stress, and generalized hospitalization. Performed By: #### C BC #### [facility] [address] [place] [address] Dr. Allen Alonzo INFLUENZA A AND B AGon 02-13 INFLUENZA A AG Negative Normal NEGATIVE SEE COMMENT [facility] Comment on above: Performed By: #### P SASC #### [facility] [address] [place] [address] Dr. Allen Alonzo INFLUENZA B AG Negative Normal NEGATIVE SEE COMMENT [facility] Comment on above: Performed By: #### P SASC #### [facility] [address] [place] [address] Dr. Allen Alonzo LACTATE/LACTIC ACIDon 2022 Lactate [Moles/Vol] 2.0 mmol/L Normal 0.4-2.0 [facility] Comment on above: Performed By: #### C BC #### [facility] [address] [place] [address] Dr. Allen Alonzo PROF 14(COMP METB)on 023 Albumin [Mass/Vol] 3.7 g/dL Normal 3.4-5.0 [facility] Comment on above: Performed By: #### P SASC #### [facility] [address] [place] [address] Dr. Allen Alonzo Albumin/Globulin [Mass ratio] 1.1 {ratio} Normal [facility] Comment on above: Performed By: #### P SASC #### [facility] [address] [place] [address] Dr. Allen Alonzo ALP [Catalytic activity/Vol] 96 U/L Normal 46-116 [facility] Comment on above: Performed By: #### P SASC #### [facility] [address] [place] [address] Dr. Allen Alonzo ALT [Catalytic activity/Vol] 80 U/L Critically high 16-63 [facility] Comment on above: Performed By: #### P SASC #### [facility] [address] [place] [address] Dr. Allen Alonzo Anion gap [Moles/Vol] 16.7 mmol/L Normal [facility] Comment on above: Performed By: #### P SASC #### [facility] [address] [address] [address] Allen Alonzo AST [Catalytic activity/Vol] 55 U/L Critically high 15-37 [facility] Comment on above: Performed By: #### P SASC #### [facility] [address] [address] [address] Allen Alonzo Bilirubin [Mass/Vol] 0.5 mg/dL Normal 0.2-1.0 [facility] Comment on above: Performed By: #### P SASC #### [facility] [address] [address] [address] Allen Alonzo Calcium [Mass/Vol] 9.3 mg/dL Normal 8.5-10.1 [facility] Comment on above: Performed By: #### P SASC #### [facility] [address] [address] [address] Allen Alonzo Chloride [Moles/Vol] 102 mmol/L Normal 98-107 [facility] Comment on above: Performed By: #### P SASC #### [facility] [address] [address] [address] Allen Alonzo CO2 [Moles/Vol] 26.6 mmol/L Normal 21.0-32.0 [facility] Comment on above: Performed By: #### P SASC #### [facility] [address] [address] [address] Allen Alonzo Creatinine [Mass/Vol] 0.96 mg/dL Normal 0.70-1.30 [facility] Comment on above: Performed By: #### P SASC #### [facility] [address] [address] [address] Allen Alonzo EGFR-AF FRENCH >60 Normal >=60 [facility] Comment on above: Performed By: #### P SASC #### [facility] [address] [address] [address] Allen Alonzo EGFR-NON AF FRENCH >60 Normal >=60 [facility] Comment on above: Performed By: #### P SASC #### [facility] [address] [address] [address] Allen Alonzo Globulin (S) [Mass/Vol] 3.5 g/dL Normal [facility] Comment on above: Performed By: #### P SASC #### [facility] [address] [address] [address] Allen Alonzo Glucose [Mass/Vol] 142 mg/dL Critically high 74-106 [facility] Comment on above: Performed By: #### P SASC #### [facility] [address] [address] [address] Allen Alonzo Potassium [Moles/Vol] 4.3 mmol/L Normal 3.5-5.1 [facility] Comment on above: Performed By: #### P SASC #### [facility] [address] [address] [address] Allen Alonzo Protein [Mass/Vol] 7.2 g/dL Normal 6.4-8.2 [facility] Comment on above: Performed By: #### P SASC #### [facility] [address] [address] [address] Allen Alonzo Sodium [Moles/Vol] 141 mmol/L Normal 136-145 [facility] Comment on above: Performed By: #### P SASC #### [facility] [address] [address] [address] Allen Alonzo Urea nitrogen [Mass/Vol] 11.0 mg/dL Normal 7.0-18.0 [facility] Comment on above: Performed By: #### P SASC #### [facility] [address] [address] [address] Allen Alonzo Urea nitrogen/Creatinine [Mass ratio] 11.5 mg/mg Normal [facility] Comment on above: Performed By: #### P SASC #### [facility] [address] [address] [address] Allen Alonzo SYMPTOMATIC COVID-19 ANTIGEN on 02-13-2023 EUA Statement SEE BELOW Normal [facility] Comment on above: Result Comment: This test has not been FDA cleared or approved, but has been authorized by the FDA under an Emergency Use Authorization (EUA) for use by authorized laboratories certified under CLIA that meet the requirements to perform moderate or high complexity testing. This test has been authorized only for the detection of proteins from SARS-CoV-2, not for any other viruses or pathogens. The emergency use of this test is authorized for the duration of the declaration that circumstances exist justifying the authorization of emergency use of in vitro diagnostic tests for detection and/or diagnosis of Covid-19 under section 564(b)(1) of the Act, 21 U.S.C. 360bbb-3(b)(1), unless the declaration is terminated or authorization is revoked sooner. Performed By: #### C BC #### [facility] [address] [place] [address] Dr. Allen Alonzo SARS-CoV-2 (COVID-19) RNA ZOLTAN+probe Ql (Unsp spec) Negative Normal NEGATIVE [facility] Comment on above: Performed By: #### C BC #### [facility] [address] [place] [address] Dr. Allen Alonzo TROPONIN, HIGH SENSITIVITYon 02-13-2023 HSTROP 5.1 pg/mL Normal 4.0-76.1 [facility] Comment on above: Result Comment: CUT- OFF POINTS HAVE BEEN ESTABLISHED BASED ON THE FOURTH UNIVERSAL DEFINITIONS OF MYOCARDIAL INFARCTION. THE UPPER REFERENCE LIMIT (URL) OF TROPONIN, DEFINED THE 99TH PERCENTILE OF cTnI DISTRIBUTION IN A REFERENCE POPULATION, HAS BEEN CONFIRMED THE DECISION THRESHOLD FOR [place] DIAGNOSIS. Performed By: #### C BC #### [facility] [address] [place] [address] Dr. Allen Alonzo HSTROP 5.4 pg/mL Normal 4.0-76.1 [facility] Comment on above: Result Comment: CUT- OFF POINTS HAVE BEEN ESTABLISHED BASED ON THE FOURTH UNIVERSAL DEFINITIONS OF MYOCARDIAL INFARCTION. THE UPPER REFERENCE LIMIT (URL) OF TROPONIN, DEFINED THE 99TH PERCENTILE OF cTnI DISTRIBUTION IN A REFERENCE POPULATION, HAS BEEN CONFIRMED THE DECISION THRESHOLD FOR [place] DIAGNOSIS. Performed By: #### C BC #### [facility] [address] [place] [address] Dr. Allen Alonzo XR CHEST 2 Von 02-13-2023 XR CHEST 2 V EXAM: XR CHEST 2 V 02/13/2023 COMPARISON STUDY: Acute abdominal series 07/01/2021. HISTORY: SHORTNESS OF BREATH. FINDINGS: Patient appears somewhat obese. Heart size is stable. Mildly prominent left-sided epicardial fat pad again noted. No dense consolidation, effusion, edema, failure or pneumothorax noted. Osseous structures are grossly stable. IMPRESSION: No acute cardiopulmonary process suspected. Electronically authenticated by: WENDY JESSICA Date: 2023-02-13 01:12 Normal [facility] Vital Signs Date Time Vital Sign Value Performing Clinician Mary lity 03-28-2023 15:27-0400 Blood Pressure Location Horacio NILL [facility] 03-28-2023 15:27-0400 Diastolic blood pressure 84 mm[Hg] Horacio NILL [facility] 03-28-2023 15:27-0400 Heart rate 76 /min Horacio NILL [facility] 03-28-2023 15:27-0400 Respiratory rate 16 /min Horacio NILL [facility] 03-28-2023 15:27-0400 Systolic blood pressure 122 mm[Hg] Horacio NILL [facility] Encounters Encounter Date Encounter Type Care Provider Facility Start: 09-19-2023 End: 09-19-2023 ambulatory [facility] Start: 05-08-2023 End: 05-08-2023 ambulatory [facility] Start: 04-25-2023 End: 04-26-2023 ambulatory Horacio SARABIA Facility:CD:[id number] Start: 04-04-2023 End: 04-04-2023 ambulatory [facility] Start: 03-28-2023 End: 03-29-2023 ambulatory Horacio SARABIA Facility:[facility] Start: 03-28-2023 End: 03-28-2023 Patient encounter procedure Horacio SARABIA General [facility] Start: 03-14-2023 End: 03-14-2023 [facility] Start: 03-01-2023 ambulatory Horacio NILL Facility:[facility] Start: 02-22-2023 End: 02-22-2023 ambulatory EDVIN JAMES Facility:[facility] Start: 02-19-2023 End: 02-20-2023 ambulatory EDVIN JAMES Facility:[facility] Start: 02-13-2023 End: 02-13-[address] ANAMARIA MATA . Facility:[facility] Procedures Date Procedure Procedure Detail Performing Clinician Start: 02-19-[address] MAIRA MATA . Comment on above: Performed By: #### P [facility] #### [facility] [address] [place] [address] Dr. Allen Alonzo Start: 01-18-2021 Arthroscopy of shoulder Horacio NILL Arthroscopy of knee Horacio NILL Colonoscopy Horacio NILL Excision of uvula Horacio NI LL Tonsillectomy and adenoidectomy Horacio NILL Immunizations Immunization Date Immunization Notes Care Provider Fa cili 03-01-2021 SARS-CoV-2 (COVID-19 ) mRNA BNT-162b2 vax Horacio NILL [facility] [place] 02-08-2021 SARS-CoV-2 (COVID-19 ) mRNA BNT-162b2 vax Horacio NILL [facility] [place] Payers Date Payer Category Payer Unknown [id number] 2.16.84 [id number] 1965 Unknown [id number] 2.16.84 [id number] 1965 Unknown [id number] 2.16.84 [id number] 1965 Unknown [id number] 2.16.8 [id number] 1965 Unknown [id number] 2.16.8 [id number] 1959 Unknown [id number] Social History Date Type Detail Facility Start: 03-28-2023 Tobacco smoking status Never s moked tobacco (finding) General [facility] Tobacco smoking status Never Gener al Surgery Ernesto Sex Assigned At Male [facility] Medical Equipment Procedure Code Equipment Code Equipment Origin al Text Equipment Identifier Dates SHOULDER ARTHROS COPY W/ POSSIBLE REPAIR Checo Packer DO 01/18/21 Non Biological Shoulder L [id number] FDA Start: 01-18-2021 Functional Status Date Assessment Result Facility 03-28-2023 Functional Status N/A [facility] [place] Progress note 09-19-2023 Note Date & Type Note Facility 09-19-2023 Note [facility] Subjective Leander Ortiz is a 57 y.o. year old male patient being seen for 4 mo follow up CAD, hyperlipidemia, and hypertension. Has not had repeat lipid since March 2023. He denies chest pain, SOB, palpitations, and lightheadedness. Doing very well. Patient Active Problem List Diagnosis Gout Obesity S/P arthroscopy of shoulder Abnormal stress test Sleep apnea Positive fecal occult blood test Essential hypertension Diabetes ([facility]) Arthritis Anxiety Family History Problem Relation Name Age of Onset No Known Problems Mother No Known Problems Father Social History Tobacco Use Smoking status: Never Smokeless tobacco: Never Substance Use Topics Alcohol use: Yes Comment: occasional HPI Leander is seen in follow-up. He is a 57-year-old man with history of Hypertension, hyperlipidemia, gout and prediabetes maintained on metformin who was evaluated in March 2023 due to symptoms of shortness of breath and abnormal stress test. Cardiac catheterization was performed that showed no significantly obstructive coronary artery disease but with sluggish flow. He is maintained on medical therapy for coronary artery disease and stable angina. His echocardiogram showed normal ventricular and valvular function. He has been doing well. He does not have chest pain or shortness of breath on exertion on the current medications. He has no dizziness or lightheadedness. He is on aspirin and statin therapy. He was supposed to have a follow-up lipid profile but never did. Review of Systems Cardiovascular: Negative for chest pain, dyspnea on exertion, irregular heartbeat, leg swelling, orthopnea, palpitations and syncope. Respiratory: Negative for cough and shortness of breath. Musculoskeletal: Negative for arthritis, falls and neck pain. Gastrointestinal: Negative for diarrhea and dysphagia. Neurological: Negative for light-headedness and loss of balance. Objective Visit Vitals BP 122/76 (BP Location: Left arm, Patient Position: Sitting) Pulse 52 Ht 1.727 m (5' 8 ) Wt (!) 155 kg (341 lb) SpO2 95% BMI 51.85 kg/m??? Smoking Status Never BSA 2.73 m??? Physical Exam Constitutional: Appearance: He is well-developed. He is obese. He is not ill-appearing. HENT: Head: Normocephalic and atraumatic. Nose: Nose normal. Eyes: General: No scleral icterus. Pupils: Pupils are equal, round, and reactive to light. Neck: Thyroid: No thyromegaly. Vascular: No JVD. Cardiovascular: Rate and Rhythm: Regular rhythm. Bradycardia present. Pulses: Radial pulses are 2+ on the right side and 2+ on the left side. Heart sounds: Normal heart sounds. No murmur heard. No friction rub. No gallop. Pulmonary: Effort: Pulmonary effort is normal. No respiratory distress. Breath sounds: Normal breath sounds. No wheezing or rales. Chest: Chest wall: No tenderness. Abdominal: General: Bowel sounds are normal. There is no distension. Palpations: Abdomen is soft. Tenderness: There is no abdominal tenderness. Musculoskeletal: General: No swelling. Cervical back: Neck supple. Skin: General: Skin is warm and dry. Neurological: General: No focal deficit present. Mental Status: He is alert and oriented to person, place, and time. Psychiatric: Mood and Affect: Mood normal. Behavior: Behavior is cooperative. Judgment: Judgment normal. Allergies Allergies Allergen Reactions Penicillin G Medications Current Outpatient Medications: allopurinol (Zyloprim) 300 mg tablet, Take 300 mg by mouth in the morning., Disp: , Rfl: colchicine 0.6 mg tablet, Take by mouth in the morning., Disp: , Rfl: metFORMIN (Glucophage) 500 mg tablet, Take 500 mg by mouth in the morning and at bedtime., Disp: , Rfl: nitroglycerin (Nitrostat) 0.4 mg SL tablet, Place 1 tablet (0.4 mg) under the tongue every 5 (five) minutes if needed for chest pain. May repeat dose every 5 minutes for up to 3 doses total., Disp: 100 tablet, Rfl: 0 pantoprazole (ProtoNix) 40 mg EC tablet, Take 40 mg by mouth in the morning., Disp: , Rfl: aspirin 81 mg chewable tablet, Chew 1 tablet (81 mg) in the morning., Disp: 90 tablet, Rfl: 3 atorvastatin (Lipitor) 40 mg tablet, Take 1 tablet (40 mg) by mouth at bedtime., Disp: 90 tablet, Rfl: 3 carvedilol (Coreg) 12.5 mg tablet, Take 1 tablet (12.5 mg) by mouth with breakfast and with evening meal., Disp: 180 tablet, Rfl: 3 isosorbide mononitrate ER (Imdur) 60 mg 24 hr tablet, Take 1 tablet (60 mg) by mouth in the morning. Do not crush or chew., Disp: 90 tablet, Rfl: 3 Recent Labs Admission on 04/04/2023, Discharged on 04/04/2023 Component Date Value Auto WBC 04/04/2023 9.13 RBC 04/04/2023 4.34 Hemoglobin 04/04/2023 13.8 Hematocrit 04/04/2023 40.5 MCV 04/04/2023 93.3 MCH 04/04/2023 31.8 MCHC 04/04/2023 34.1 RDW 04/04/2023 13.4 Platelets 04/04/2023 224 Ventricular Rate 04/04/2023 57 Atri (more content not included)... [facility] Progress note 05-08-2023 Note Date & Type Note Facility 05-08-2023 Note Patient here for fol low up heart cath on 04/04/[address] Sena. Denies chest pain and SOB. Doing ok cardiac ahumada he says. Review of Systems Cardiovascular: Positive for leg swelling (wears compression stockings). Musculoskeletal: Positive for neck pain. Neurological: Positive for headaches. All other systems reviewed and are negative. [facility] Progress note 05-08-2023 Note Date & Type Note Facility 05-08-2023 Note Cardiology Clinic No te Subjective Leander Ortiz is a 57 y.o. year old male with past medical history of hypertension, hyperlipidemia, prediabetes and non-obstructive coronary artery disease with sluggish flow on angiography 04/04/2002/17/2023 seen in follow-up. Patient Active Problem List Diagnosis Gout Obesity S/P arthroscopy of shoulder Abnormal stress test Sleep apnea Positive fecal occult blood test Essential hypertension Diabetes (CMS/HCC) Arthritis Anxiety Family History Problem Relation Name Age of Onset No Known Problems Mother No Known Problems Father Social History Tobacco Use Smoking status: Never Smokeless tobacco: Never Substance Use Topics Alcohol use: Yes Comment: occasional HPI Leander Ortiz is a 57 y.o. year old male patient with past medical history of gout and prediabetes who is seen in consultation for abnormal stress test. He developed shortness of breath and chest heaviness after getting out of the shower about a month ago. He presented to the emergency department for evaluation where he reports a negative work-up. He was seen in follow-up by his PCP and recommended a stress test as well as an echocardiogram. Echocardiogram was unremarkable, stress test was abnormal with mid and apical septal reversible ischemic defect. Update: 05/08/2023 Seen in follow-up s/p coronary angiography Has been doing well, no recurrence chest pain Trying to lose weight but has been unsuccessful Has mild lower extremity edema that is well-controlled with use of compression stockings Stable dyspnea on exertion Does not monitor blood pressure at home Denies palpitations or acute dyspneic symptoms Review of Systems Cardiovascular: Positive for dyspnea on exertion and leg swelling. Negative for chest pain, irregular heartbeat, near-syncope, orthopnea, palpitations, paroxysmal nocturnal dyspnea and syncope. Objective Visit Vitals BP 147/74 (BP Location: Left arm, Patient Position: Sitting) Pulse 53 Ht 1.727 m (5' 8 ) Wt (!) 153 kg (337 lb) SpO2 97% BMI 51.24 kg/m??? Smoking Status Never BSA 2.71 m??? Physical Exam General: Awake, alert, NAD Neck: No elevated JVP. No carotid bruit Pulm: Breath sounds clear to ascultation bilaterally with no wheeze, crackles or rhonchi Cards: Regular rate and rhythm, S1, S2. No S3 or S4 gallop. Murmur: none Extr: Lower extremity edema: none. Skin: warm, dry, well perfused Neuro: A&Ox3, No gross deficits Allergies Allergies Allergen Reactions Penicillin G Medications Current Outpatient Medications: allopurinol (Zyloprim) 300 mg tablet, Take 300 mg by mouth in the morning., Disp: , Rfl: colchicine 0.6 mg tablet, take 1 tablet by mouth every 4 hours if needed for pain - MAX 2 TABLETS DAILY, Disp: , Rfl: metFORMIN (Glucophage) 500 mg tablet, Take 500 mg by mouth in the morning and at bedtime., Disp: , Rfl: nitroglycerin (Nitrostat) 0.4 mg SL tablet, Place 1 tablet (0.4 mg) under the tongue every 5 (five) minutes if needed for chest pain. May repeat dose every 5 minutes for up to 3 doses total., Disp: 100 tablet, Rfl: 0 pantoprazole (ProtoNix) 40 mg EC tablet, Take 40 mg by mouth in the morning., Disp: , Rfl: aspirin 81 mg chewable tablet, Chew 1 tablet (81 mg) in the morning., Disp: 90 tablet, Rfl: 3 atorvastatin (Lipitor) 40 mg tablet, Take 1 tablet (40 mg) by mouth at bedtime., Disp: 90 tablet, Rfl: 3 carvedilol (Coreg) 12.5 mg tablet, Take 1 tablet (12.5 mg) by mouth with breakfast and with evening meal., Disp: 180 tablet, Rfl: 3 isosorbide mononitrate ER (Imdur) 60 mg 24 hr tablet, Take 1 tablet (60 mg) by mouth in the morning. Do not crush or chew., Disp: 90 tablet, Rfl: 3 Recent Labs No results found for: NA, K, CL, CO2, BUN, CREATININE, GLUCOSE, CALCIUM Lab Results Component Value Date WBC 9.13 04/04/2023 HGB 13.8 04/04/2023 HCT 40.5 04/04/2023 MCV 93.3 04/04/2023 PLT 224 04/04/2023 Imaging and other tests Coronary angiography: 04/04/2023 This is a right dominant circulation. Left Main: this arises from the left coronary cusp. It bifurcates into left anterior descending and circumflex vessels. The left main has no disease. Left anterior descending: this is a large vessel. It has mild disease in its distal segment. Circumflex: this is nondominant. It has minimal disease. Right coronary artery: this is a large and dominant vessel. It arises from the right coronary cusp with a downward takeoff. It has mild proximal disease. Sluggish flow is noted.. Impression/Findings: Coronary angiogram shows mild nonobstructive epicardial coronary artery disease, with a sluggish flow noted suggestive of microvascular disease. Plan: Aspirin 81 mg daily for life. Statin therapy for life. Maximize antianginal therapy. Risk factor control. Follow up in cardiology clinic. Echocardiogram: 03/02/2023 Moderate concentric left ventricular hypertrophy with normal sy (more content not included)... [facility] Clinical Note 04-04-2023 Note Date & Type Note Facility 04-04-2023 Note Patient: Leander wolff Procedure Information Date/Time: 04/04/23 1030 Procedure: Coronary angiography (Left) Location: [facility] / [facility] (Cath) Providers: Donald Sena MD Clinical information reviewed: Allergies Meds Physical Exam Airway Mallampati: IV TM distance: >3 FB Neck ROM: full Cardiovascular Rhythm: regular Rate: normal Dental Pulmonary Abdominal Anesthesia Plan ASA 3 other (Conscious sedation) Anesthetic plan and risks discussed with patient. Use of blood products discussed with patient who consented to blood products. Additional Equipment Requests [facility] Note 03-28-2023 Note Date & Type Note Facility 03-28-2023 Note Chief Complaint consultation for positive occult stool HPI Staff 57 year old male presents on consultation from Dr. Mata for positive occult stool. Labs completed 02/19 with HGB 13.7 and HCT 39.3. Denies abdominal or rectal pain. No rectal bleeding or change in bowel habits. Denies dark or tarry stools. Denies nausea or vomiting. No unexplained weight loss. Reports last colonoscopy was completed approximately 8 years ago due to GI complaints and was normal. No known family history of colon cancer. History of Present Illness 57 yo male with h/o DMII, htn, gout, arthritis, DOROTEO, referred for positive fecal occult blood; denies change in bms or gross blood in stools, no abd complaints; no abd operations; last colonoscopy 2014, reportedly normal; on baby asa daily, no NSAID use; no SBE prophylaxis; no fmhx of GI malignancy or IBD; no tobacco use. Review of Systems PHQ Score Initial Depression Screen Score: 0 ROS - Provider Constitutional: no fever, no sweats, no weight loss. Eyes: no glasses, no blurred vision, no visual loss. ENMT: no dentures, no hoarseness, no swallowing difficulties, no hearing loss, no ear infection(s), no nose bleeds. Cardiovascular: normal blood pressure, no chest pain, regular heartbeat, no heart murmur. Respiratory: no shortness of breath, no cough, no asthma, no wheezing. Gastrointestinal: no nausea, no vomiting, no diarrhea, no constipation, no blood in stool, no change in bowel habits, no abdominal pain, no hepatitis. Genitourinary: no kidney stones, no urine infection, no dysuria. Musculoskeletal: no pain, no weakness. Skin: no changing moles, no rash, no skin lumps. Neurologic: no seizures, no epilepsy, no headache. Psychiatric: no emotional or psychiatric problem. Heme/Lymph: no bleeding problems, no anemia, no blood clots, no transfusions. Allergy/Immunologic: no swollen lymph nodes/glands, no IV drug abuse. Other: Additional ROS info: Except as noted in the above Review of Systems and in the History of Present Illness, all other systems have been reviewed and are negative or noncontributory. Physical Exam Vitals & Measurements HR: 76(Peripheral) RR: 16 BP: 122/84 HT: 69 in HT: 175.2 cm WT: 150.7 kg WT: 331.54 lb BMI: 49.1 HEENT: normal conjunctiva, sclera clear, no scleral icterus, EOM intact, PERRLA, oral mucosa moist without lesions. Neck: trachea midline, no mass, symmetric, no thyromegaly or nodules, no adenopathy Respiratory: lungs CTA, respirations non labored. Cardiovascular: regular rate and rhythm, no murmur, no pedal edema or varicosities. Gastrointestinal: obese, soft, non distended, no tenderness, no masses, no palpable hernias, diastasis recti no, no hepatosplenomegaly; normal bs rectal: external anal skin tags right lateral; left lateral internal/external hemorrhoid, no bleeding or ulceration Lymphatic: no cervical adenopathy, no supraclavicular adenopathy Musculoskeletal: normal gait, digits and nails without infection, nodes, cyanosis, clubbing. Skin: no rashes, no lesions, no ulcers, no subcutaneous nodules, induration. Psychiatric/Neuro: oriented to time, place, person, judgement normal, affect appropriate for age, insight intact, no focal deficits. Tests: labs reviewed,review of old records completed, Discussed surgical options, risks, and possible complications with patient. Assessment/Plan 1. Positive fecal occult blood test (R19.5: Other fecal abnormalities) plan colonoscopy under anesthesia, informed consent obtained. 2. BMI 45.0-49.9, adult (Z68.42: Body mass index [BMI] 45.0-49.9, adult) recommend diet and exercise. Follow-up No qualifying data available Problem List/Past Medical History Ongoing Anxiety Arthritis BMI 45.0-49.9, adult Diabetes Essential hypertension Gout Morbid obesity Positive fecal occult blood test Sleep apnea Historical RCT (rotator cuff tear) Procedure/Surgical History Arthroscopy of shoulder (01/18/2021), Arthroscopy of knee, Colonoscopy, Tonsillectomy and adenoidectomy, Uvulectomy. Medications allopurinol 300 mg Tab, 300 mg= 1 tab(s), Oral, Daily, Not taking aspirin 81 mg Oral EC Tab, 81 mg= 1 tab(s), Oral, Daily atorvastatin 40 mg Tab, 40 mg= 1 tab(s), Oral, Daily carvedilol 12.5 mg Tab, 12.5 mg= 1 tab(s), Oral, BID colchicine 0.6 mg Tab, 0.6 mg= 1 tab(s), Oral, Daily isosorbide mononitrate 60 mg ER Tab, 60 mg= 1 tab(s), Oral, qAM metformin 500 mg Tab, 500 mg= 1 tab(s), Oral, BID nitroglycerin 0.4 mg sublingual Tab, 0.4 mg= 1 tab(s), SubLingual, q5min, PRN Pantoprazole [address] Tab, 40 mg= 1 tab(s), Oral, Daily Ventolin HFA 90 mcg/inh Aerosol-Adpt, 1 puff(s), Inhalation, q4hr, PRN Allergies penicillin (Anaphylactic reaction) Social History Alcohol - Medium Risk, 01/11/2021 Current, Beer, 1-2 times per week, 01/11/2021 Employment/School Employed, Work/School description: [employer] 01/11/2021 Substance Abuse - Denies Substance Abuse, 01/11/2021 Tobacco - Denies Toba (more content not included)... [facility] Comment on above: Result Comment: Elec tronically Signed By: NO LUIS, Horacio Augustine\Date and Time Signed: 03/28/23 15:58 EDT Progress note 03-14-2023 Note Date & Type Note Facility 03-14-2023 Note Cardiology Clinic No te Subjective Leander Ortiz is a 57 y.o. year old male patient with past medical history of gout and prediabetes who is seen in consultation for abnormal stress test. He developed shortness of breath and chest heaviness after getting out of the shower about a month ago. He presented to the emergency department for evaluation where he reports a negative work-up. He was seen in follow-up by his PCP and recommended a stress test as well as an echocardiogram. Echocardiogram was unremarkable, stress test was abnormal with mid and apical septal reversible ischemic defect. He reports experiencing intermittent dyspnea as well as some chest tightness on exertion since then, last occurrence about a week ago. He has been monitoring his blood pressure at home which ranges in the 140s-160 systolic and 70s-90s diastolic. He is on metformin for treatment of prediabetes. He has never smoked. No known history of hyperlipidemia. He has no known family history of coronary artery disease or sudden cardiac . Patient Active Problem List Diagnosis Gout Obesity S/P arthroscopy of shoulder Abnormal stress test Review of Systems Cardiovascular: Positive for chest pain and dyspnea on exertion. Negative for claudication, irregular heartbeat, leg swelling, near-syncope, orthopnea, palpitations, paroxysmal nocturnal dyspnea and syncope. Objective Visit Vitals BP (!) 159/97 Pulse 89 Wt (!) 148 kg (326 lb 12.8 oz) SpO2 99% Physical Exam General: Awake, alert, NAD Pulm: Distant breath sounds Cards: Regular rate and rhythm, S1, S2. No S3 or S4 gallop. Murmur: none Abd: Soft, Nontender, physiologic bowel sounds are present Extr: Lower extremity edema: None. DP pulses:2+ Skin: warm, dry, well perfused Neuro: A&Ox3, No gross deficits Allergies Allergies Allergen Reactions Penicillin G Medications Current Outpatient Medications: allopurinol (Zyloprim) 300 mg tablet, Take 300 mg by mouth., Disp: , Rfl: colchicine 0.6 mg tablet, 2 tablets for initial dose , then 1 tablet hourly until symptoms resolve or diarrhea Orally hourly for 1 day, Disp: , Rfl: HYDROcodone-acetaminophen ([place]) 5-325 mg tablet, Take by mouth., Disp: , Rfl: ibuprofen 800 mg tablet, Take 800 mg by mouth., Disp: , Rfl: metFORMIN (Glucophage) 500 mg tablet, Take 500 mg by mouth in the morning and at bedtime., Disp: , Rfl: pantoprazole (ProtoNix) 40 mg EC tablet, Take 40 mg by mouth in the morning., Disp: , Rfl: allopurinol (Zyloprim) 300 mg tablet, Take 300 mg by mouth in the morning., Disp: , Rfl: aspirin 81 mg chewable tablet, Chew 1 tablet (81 mg) in the morning., Disp: 90 tablet, Rfl: 3 atorvastatin (Lipitor) 40 mg tablet, Take 1 tablet (40 mg) by mouth in the morning., Disp: 90 tablet, Rfl: 0 carvedilol (Coreg) 12.5 mg tablet, Take 1 tablet (12.5 mg) by mouth with breakfast and with evening meal., Disp: 180 tablet, Rfl: 0 colchicine 0.6 mg tablet, take 1 tablet by mouth every 4 hours if needed for pain - MAX 2 TABLETS DAILY, Disp: , Rfl: isosorbide mononitrate ER (Imdur) 60 mg 24 hr tablet, Take 1 tablet (60 mg) by mouth in the morning. Do not crush or chew., Disp: 90 tablet, Rfl: 3 nitroglycerin (Nitrostat) 0.4 mg SL tablet, Place 1 tablet (0.4 mg) under the tongue every 5 (five) minutes if needed for chest pain. May repeat dose every 5 minutes for up to 3 doses total., Disp: 100 tablet, Rfl: 0 oseltamivir (Tamiflu) 75 mg capsule, Take 75 mg by mouth in the morning and at bedtime., Disp: , Rfl: oxyCODONE (Roxicodone) 5 mg immediate release tablet, Take 5 mg by mouth., Disp: , Rfl: Paxlovid, EUA, 300 mg (150 mg x 2)-100 mg tablets,dose pack, take 2 NIRMATRELVIR tablets with 1 RITONAVIR tablet twice a day f... (REFER TO PRESCRIPTION NOTES)., Disp: , Rfl: predniSONE (Deltasone) 20 mg tablet, Take 60 mg by mouth in the morning., Disp: , Rfl: triamcinolone (Kenalog) 0.1 % cream, APPLY EXTERNALLY TWICE DAILY, Disp: , Rfl: Recent Labs 02/13/2023 WBC 11.5, hemoglobin 14.6, hematocrit 43.8, platelets 224 Sodium 141, potassium 4.3, chloride 102, CO2 26.6, glucose 142, BUN 11, creatinine 0.96, estimated GFR greater than 60% NT proBNP 24 High sensitive troponin 5.1 Imaging and other tests Echocardiogram: 03/02/2023 Moderate concentric left ventricular hypertrophy with normal systolic function. LVEF is 55 to 60% Normal diastolic function No significant valvular dysfunction Unable to assess right-sided pressures due to lack of measurable tricuspid regurgitation No pericardial effusion Stress test: 03/01/2023 Mid and apical anterior septal reversible perfusion defect suggestive of acute ischemia. Consideration is also given to anterior soft tissue attenuation artifact Left ventricular size is upper limits of normal to minimally enlarged, 125 mL Normal ejection fraction and wall motion Assessment Diagnoses and all orders for this visit: Cardiovascular stre (more content not included)... [facility] Progress note 03-14-2023 Note Date & Type Note Facility 03-14-2023 Note Review of Systems Respiratory: Positive for shortness of breath. Neurological: Positive for headaches. All other systems reviewed and are negative. [facility] Evaluation + Plan note Note Date & Type Note Facility Evaluation + Plan note No data available for this section General Surgery [facility] Discharge instructions Note Date & Type Note Facility Hospital Discharge instructions No data available for this section General [facility] Progress note Note Date & Type Note Facility Progress note No data available for this section General [facility] Summary Purpose Family History No Family History Records FoundNo Family History Records FoundNo Family History Records Found Advance Directives No Advanced Directives Records FoundNo Advanced Directives Records FoundNo Advanced Directives Records Found Additional Source Comments (unrecognized sect ion and content) No Status Records FoundNo Status Records FoundNo Status Records Found INFORMATION SOURCE (unrecogn ized section and content) DATE CREATED AUTHOR 03/12/2023 [facility] DATE CREATED AUTHOR AUTHOR'S ORGANIZ ATION 05/11/2023 [place] [facility] DATE CREATED AUTHOR AUTHOR'S ORGANIZ ATION 09/20/[address] [facility] Patient Care team informatio n (unrecognized section and content) Personnel Name: Anamaria Mata MD Address: Address: [address] [place] [address] FOR RECORDS PERTAINING TO PATIENTS WHO ARE OR HAVE BEEN ENROLLED IN A CHEMICAL DEPENDENCY/SUBSTANCEABUSE PROGRAM, SOME INFORMATION MAY BE OMITTED. This clinical summary was aggregated from multiple sources. Caution should be exercised in using it in the provision of clinical care. This summary normalizes information from multiple sources, and as a consequence, information in this document may materially change the coding, format and clinical context of patient data. In addition, data may be omitted in some cases. CLINICAL DECISIONS SHOULD BE BASED ON THE PRIMARY CLINICAL RECORDS. [facility] [employer]. provides no warranty or guarantee of the accuracy or completeness of information in this document.
[2023-11-21 10:39] LABS: Estimated Average Glucose 180 mg/dL; Glycohemoglobin A1C 7.9 % (4.5-6.2)
== END 2023-11-21 09:35 | disposition home or self-care (01) ==
LOC: LAB 09:35
PROVIDERS: PCP Family Medicine; Visit Provider Family Medicine
DX: E11.65 Type 2 diabetes mellitus with hyperglycemia (principal)
CPT/HCPCS: 36415; 83036

== ENCOUNTER 2023-12-12 11:27 | Outpatient (REF) | payer BC, SELFPAY ==
--- OUTSIDE RECORDS SUMMARY | 2023-12-12 11:35 | XMS_ITS | CCD ---
Author Name Unknown Address [address] [facility] [address] [place] [id number] Organization [facility] Care Team Providers Care Plant Taxonomy Teacher Name Role Phone ADOLFO ., DR CONRAD [...] Attending Unavailable Anamaria Mata Primary Care Physician [phone] Horacio SARABIA Attending Unavailable Anamaria Mata Referring Unavailable Horacio SARABIA Attending Unavailable DONALD SENA Admitting Unavailable DONALD SENA Attending Unavailable DONALD SENA Attending Unavailable RAMOS HARO Attending Unavailable RAMOS HARO Attending Unavailable DONALD SENA Referring Unavailable Allergies Allergy Classification Reported Allergen(s) Allergy Type Date of Onset Reaction(s) Facility (2 sources) Ciprofloxacin; Translations: [Cipro] Drug Allergy 1 [facility] Repository (2 sources) Clindamycin; Translations: [clindamycin] Drug Allergy 1 [facility] Repository (3 sources) Penicillin; Translations: [penicillin] Drug Allergy 1 Anaphylactic reaction [facility] Repository (1 source) Penicillin; Translations: [PENICILLIN G] Drug Allergy 3 [facility] Repository Medications Current Medications Medication Drug [...] disease (2 sources) Atherosclerotic heart disease of [place] coronary artery without angina pectoris; Translations: [Atherosclerotic heart disease of [place] coronary artery without angina pectoris] Onset: 09-19-2023 [...] 01-11-2021 Chronic Other aftercare (1 source) 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; Translations: [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] Onset: 02-14-2023 Episodic Other aftercare (1 source) residential (current) use of oral hypoglycemic drugs; Translations: [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 USE ORAL HYPOGLYCEMIC DX] Onset: 02-14-2023 Episodic [...] Range Facility Office Visiton 09-19-2023 Follow-up visit [id number] Leander Ortiz 1965 M Date Provider Department Center 09/19/2023 DONALD SMITH [facility]ARD [facility] Family History Problem Relation Age of Onset No Known Problems Mother No Known Problems Father Family Status - Relation Status Age at Mother Father Level of Service:32818 [place] OFFICE/OUTPATIENT ESTABLISHED LOW MDM 20 MIN Normal [facility] Reminderson 05-10-2023 Reminders - From: Julia Toribio LPN To: N - Clinical; Sent: 05/10/2023 10:41:47 EDT Show up: 03/26/2028 07:00:00 EDT Subject: colonoscopy recall Due Date/Time: 04/25/2028 07:00:00 EDT Reminder/Recall Patient due for surveillance colonoscopy 04/25/2028. Normal [facility] Office Visiton 05-08-2023 Follow-up visit [id number] MicvikijuvenalLeander Mayo 1965 M Date Provider Department Center 05/08/2023 RAMOS VILLARREAL [facility] Family History Problem Relation Age of Onset No Known Problems Mother No Known Problems Father Family Status - Relation Status Age at Mother Father Level of Service:33116 [place] OFFICE/OUTPATIENT ESTABLISHED MOD MDM 30-39 MIN Normal [facility] Pathology Noteon 05-01-2023 Pathology Note [id number] #1.00CD:127 Normal [facility] Outside Colonoscopyon 2022 Outside Colonoscopy [id number] #1.00CD:127 Normal [facility] Lab Reportson 04-25-2023 Lab Reports [id number] #1.00CD:127 Normal [facility] CBCon 04-04-2023 Erythrocyte distribution width (RBC) [Ratio] 13.4 % Normal 11.5-15.0 [facility] Comment on above: Performed By: #### L [id number] ####[facility] (BEAKER)[address] [place] [address] ERYTHROCYTE MEAN CORPUSCULAR HEMOGLOBIN CONCENTRATION (G/DL) BY AUTOMATED 34.1 g/dL Normal 32.0-35.0 [facility] Comment on above: Performed By: #### L [id number] ####[facility] (BEAKER)[address] [place] [address] Hematocrit (Bld) [Volume fraction] 40.5 % Normal 39.0-55.0 [facility] Comment on above: Performed By: #### L [id number] ####[facility] (BEAKER)[address] [place] [address] Hemoglobin (Bld) [Mass/Vol] 13.8 g/dL Normal 13.0-17.0 [facility] Comment on above: Performed By: #### L [id number] ####[facility] (BEAKER)[address] [place] [address] MCH (RBC) [Entitic mass] 31.8 pg Normal 27.0-33.0 [facility] Comment on above: Performed By: #### L [id number] ####[facility] (BEAKER)[address] [place] [address] MCV (RBC) [Entitic vol] 93.3 fL Normal 82.0-98.0 [facility] Comment on above: Performed By: #### L [id number] ####[facility] (BEAKER)[address] [place] [address] PLATELETS (10*3/UL) IN BLOOD AUTOMATED COUNT 224 10*3/uL Normal 150-400 [facility] Comment on above: Performed By: #### L [id number] ####[facility] (BEAKER)[address] [place] [address] RBC (Bld) [#/Vol] 4.34 10*6/uL Normal 4.20-5.70 [facility] Comment on above: Performed By: #### L [id number] ####[facility] (BEAKER)[address] [place] [address] WBC (Bld) [#/Vol] 9.13 10*3/uL Normal 4.00-10.60 [facility] Comment on above: Performed By: #### L [id number] ####[facility] (MULUGETA)[address] [place] [address] HPon 04-04-2023 HP H&P reviewed. The patient was examined and there are no changes to the H&P. Normal [facility] NURSNOTEon 04-04-2023 NURSNOTE RN educated pt on d/c instructions. RN encouraged pt to voice any questions or concerns. Pt verbalizes no questions or concerns at this time. Pt was wheeled off of unit with all of belongings. [facility] Consent for Procedure/Surger yon 03-29-2023 Consent for Procedure/Surgery [id number] #1.00CD:127 Normal [facility] Facesheeton 03-29-2023 Facesheet [id number] #1.00CD:127 Normal [facility] Transfer Inon 03-29-2023 Transfer In [id number]# 1.00CD:127 Normal [facility] Ambulatory Visit Summaryon 0 03-28-2023 Ambulatory Visit [...] treatment for. RCT (rotator cuff tear) Normal [facility] Orders Onlyon 03-26-2023 Orders Only [id number] Leander Ortiz 1965 M Date Provider Department Center 03/26/2023 [facility] No family history on file Normal [facility] HPon 03-14-2023 Cardiology Clinic Note Subjective [...] 1 day, Disp: , Rfl: HYDROcodone-acetamin ophen ([place]) 5-325 mg tablet, Take by mouth., Disp: [...] Cardiovascular stre (more content not included)... Normal [facility] Office Visiton 03-14-2023 Follow-up visit [id number] Leander Ortiz 1965 M Date Provider Department Center 03/14/2023 [id number] HARO [facility] No family history on file Level of Service:10617 [place] OFFICE/OUTPATIENT NEW MODERATE MDM 45-59 MINUTES Reason for Visit and Comments: Shortness of Breath [104816] Leg Swelling [915690] Normal [facility] Consultation Noteon 03-01-20 Consultation Note [id number] #1.00CD:127 Normal [facility] Lab Reportson 03-01-2023 Lab Reports [id number] #1.00CD:127 Normal [facility] Patient Correspondenceon Patient Correspondence [id number] #1.00CD:127 Normal [facility] OCC BLD IMMUNO SCREENon 01-30 OCCULT BLOOD Positive Abnormal NEGATIVE [facility] Comment on above: Performed By: #### O BSCRN #### [facility] [address] [address] [address] Allen Alonzo INSULINon 02-20-2023 Insulin 17.1 uIU/mL Normal 2.6-24.9 [facility] Comment on above: Performed By: #### I NSULIN #### [facility] [address] [place] [address] Dr. Allen Alonzo CBC AUTO DIFFon 02-19-2023 BASO # 0.1 103/ul Normal 0.0-0.1 [facility] Comment on above: Performed By: #### C BC #### [facility] [address] [place] [address] Dr. Allen Alonzo Basophils/100 WBC (Bld) 1.1 % Normal 0.2-2.0 [facility] Comment on above: Performed By: #### C BC #### [facility] [address] [place] [address] Dr. Allen Alonzo EO # 0.8 103/ul Critically high 0.0-0.7 [facility] Comment on above: Performed By: #### C BC #### [facility] [address] [place] [address] Dr. Allen Alonzo Eosinophils/100 WBC (Bld) 7.3 % Critically high 0.9-7.0 [facility] Comment on above: Performed By: #### C BC #### [facility] [address] [place] [address] Dr. Allen Alonzo Erythrocyte distribution width (RBC) [Ratio] 12.3 % Normal 11.0-15.0 [facility] Comment on above: Performed By: #### C BC #### [facility] [address] [place] [address] Dr. Allen Alonzo Hematocrit (Bld) [Volume fraction] 39.3 % Critically low 42.0-54.0 [facility] Comment on above: Performed By: #### C BC #### [facility] [address] [place] [address] Dr. Allen Alonzo Hemoglobin (Bld) [Mass/Vol] 13.7 g/dL Critically low 14.0-18.0 [facility] Comment on above: Performed By: #### C BC #### [facility] [address] [place] [address] Dr. Allen Alonzo IG # 0.02 10e3/ul Normal 0.00-0.03 [facility] Comment on above: Performed By: #### C BC #### [facility] [address] [place] [address] Dr. Allen Alonzo IG % 0.2 % Normal 0.0-0.5 [facility] Comment on above: Performed By: #### C BC #### [facility] [address] [place] [address] Dr. Allen Alonzo LYMPH # 4.8 103/ul Critically high 1.2-3.8 [facility] Comment on above: Performed By: #### C BC #### [facility] [address] [place] [address] Dr. Allen Alonzo Lymphocytes/100 WBC (Bld) 43.2 % Normal 20.5-60.0 [facility] Comment on above: Performed By: #### C BC #### [facility] [address] [place] [address] Dr. Allen Alonzo MANUAL DIFF REQ NO Normal [facility] Comment on above: Performed By: #### C BC #### [facility] [address] [place] [address] Dr. Allen Alonzo MCH (RBC) [Entitic mass] 32.0 pg Normal 25.9-34.0 [facility] Comment on above: Performed By: #### C BC #### [facility] [address] [place] [address] Dr. Allen Alonzo MCHC (RBC) [Mass/Vol] 34.9 g/dL Normal 29.9-35.2 [facility] Comment on above: Performed By: #### C BC #### [facility] [address] [place] [address] Dr. Allen Alonzo MCV (RBC) [Entitic vol] 91.8 fL Normal 80.0-94.0 [facility] Comment on above: Performed By: #### C BC #### [facility] [address] [address] [address] Allen Alonzo MONO # 0.8 103/ul Normal 0.3-0.8 [facility] Comment on above: Performed By: #### C BC #### [facility] [address] [address] [address] Allen Alonzo Monocytes/100 WBC (Bld) 6.7 % Normal 1.7-12.0 [facility] Comment on above: Performed By: #### C BC #### [facility] [address] [address] [address] Allen Alonzo NEUT # 4.6 103/ul Normal 1.4-6.5 [facility] Comment on above: Performed By: #### C BC #### [facility] [address] [address] [address] Allen Alonzo Neutrophils/100 WBC (Bld) 41.5 % Critically low 43.0-75.0 [facility] Comment on above: Performed By: #### C BC #### [facility] [address] [address] [address] Allen Alonzo Platelet mean volume (Bld) [Entitic vol] 10.6 fL Normal 9.5-13.5 [facility] Comment on above: Performed By: #### C BC #### [facility] [address] [address] [address] Allen Alonzo PLT 212 103/ul Normal 150-450 [facility] Comment on above: Performed By: #### C BC #### [facility] [address] [address] [address] Allen Alonzo RBC 4.28 106/ul Critically low 4.70-6.[address] [facility] Comment on above: Performed By: #### C BC #### [facility] [address] [address] [address] Allen Alonzo WBC 11.2 103/ul Critically high 4.0-11.0 [facility] Comment on above: Performed By: #### C BC #### [facility] [address] [address] [address] Allen Alonzo FREE T3on 02-19-2023 FREE T3 2.20 pg/mlL Normal 2.18-3.98 [facility] Comment on above: Performed By: #### L IPID, TSH, CMP, T4, URIC, FT3 #### [facility] [address] [address] [address] Allen Alonzo GLYCOHEMOGLOBIN A1Con 2022 ADA RECOMMENDATION SEE BELOW Normal [facility] Comment on above: Result Comment: ADA RECOMMENDED LIMIT 4.0 - 6.0 ADA THERAPEUTIC TARGET < 7.0 ACTION SUGGESTED > 7.0 Performed By: #### A 1C #### [facility] [address] [place] [address] Dr. Allen Alonzo Glucose [Mass/Vol] 183 mg/dL Normal [facility] Comment on above: Performed By: #### A 1C #### [facility] [address] [address] [address] Allen Alonzo HbA1c (Bld) [Mass fraction] 8.0 % Critically high 4.5-6.2 [facility] Comment on above: Performed By: #### A 1C #### [facility] [address] [place] [address] Dr. Allen Alonzo LIPID PROFILEon 02-19-2023 CHOL-HDL RATIO NORM SEE BELOW Normal [facility] Comment on above: Result Comment: 3.3 - 4.4 LOW RISK 4.4 - 7.1 AVERAGE RISK 7.1 - 11.0 MODERATE RISK >11.0 HIGH RISK Performed By: #### L IPID, TSH, CMP, T4, URIC, FT3 #### [facility] [address] [address] [address] Allen Alonzo Cholesterol [Mass/Vol] 181 mg/dL Normal <=200 [facility] Comment on above: Performed By: #### L IPID, TSH, CMP, T4, URIC, FT3 #### [facility] [address] [address] [address] Allen Alonzo Cholesterol in HDL [Mass/Vol] 44 mg/dL Normal 40-60 [facility] Comment on above: Performed By: #### L IPID, TSH, CMP, T4, URIC, FT3 #### [facility] [address] [address] [address] Allen Alonzo Cholesterol in LDL [Mass/Vol] 87.0 mg/dL Normal [facility] Comment on above: Performed By: #### L IPID, TSH, CMP, T4, URIC, FT3 #### [facility] [address] [address] [address] Allen Alonzo Cholesterol.total/Cho lesterol in HDL [Mass ratio] 4.1 {ratio} Normal [facility] Comment on above: Performed By: #### L IPID, TSH, CMP, T4, URIC, FT3 #### [facility] [address] [place] [address] Dr. Allen Alonzo HDL NORMAL > or = 60 mg/dl - LOW CARDIOVASCULAR RISK <40 mg/dl - HIGH CARDIOVASCULAR RISK Normal [facility] Comment on above: Performed By: #### L IPID, TSH, CMP, T4, URIC, FT3 #### [facility] [address] [place] [address] Dr. Allen Alonzo LDL CALC NORMAL SEE BELOW Normal [facility] Comment on above: Result Comment: <100 mg/dl OPTIMAL 100 - 129 mg/dl NEAR OR ABOVE OPTIMAL 130 - 159 mg/dl BORDERLINE HIGH 160 - 189 mg/dl HIGH >190 mg/dl VERY HIGH Performed By: #### L IPID, TSH, CMP, T4, URIC, FT3 #### [facility] [address] [address] [address] Allen Alonzo Triglyceride [Mass/Vol] 250 mg/dL Critically high <=150 [facility] Comment on above: Performed By: #### L IPID, TSH, CMP, T4, URIC, FT3 #### [facility] [address] [address] [address] Allen Alonzo VLDL CALC 50.0 mg/dL Normal [facility] Comment on above: Performed By: #### L IPID, TSH, CMP, T4, URIC, FT3 #### [facility] [address] [place] [address] Dr. Allen Alonzo PROF 14(COMP METB)on 023 Albumin [Mass/Vol] 3.6 g/dL Normal 3.4-5.0 [facility] Comment on above: Performed By: #### L IPID, TSH, CMP, T4, URIC, FT3 #### [facility] [address] [place] [address] Dr. Allen Alonzo Albumin/Globulin [Mass ratio] 1.0 {ratio} Normal [facility] Comment on above: Performed By: #### L IPID, TSH, CMP, T4, URIC, FT3 #### [facility] [address] [place] [address] Dr. Allen Alonzo ALP [Catalytic activity/Vol] 97 U/L Normal 46-116 [facility] Comment on above: Performed By: #### L IPID, TSH, CMP, T4, URIC, FT3 #### [facility] [address] [place] [address] Dr. Allen Alonzo ALT [Catalytic activity/Vol] 61 U/L Normal 16-63 [facility] Comment on above: Performed By: #### L IPID, TSH, CMP, T4, URIC, FT3 #### [facility] [address] [place] [address] Dr. Allen Alonzo Anion gap [Moles/Vol] 14.8 mmol/L Normal [facility] Comment on above: Performed By: #### L IPID, TSH, CMP, T4, URIC, FT3 #### [facility] [address] [place] [address] Dr. Allen Alonzo AST [Catalytic activity/Vol] 31 U/L Normal 15-37 [facility] Comment on above: Performed By: #### L IPID, TSH, CMP, T4, URIC, FT3 #### [facility] [address] [place] [address] Dr. Allen Alonzo Bilirubin [Mass/Vol] 0.5 mg/dL Normal 0.2-1.0 [facility] Comment on above: Performed By: #### L IPID, TSH, CMP, T4, URIC, FT3 #### [facility] [address] [address] [address] Allen Alonzo Calcium [Mass/Vol] 8.8 mg/dL Normal 8.5-10.1 [facility] Comment on above: Performed By: #### L IPID, TSH, CMP, T4, URIC, FT3 #### [facility] [address] [place] [address] Dr. Allen Alonzo Chloride [Moles/Vol] 100 mmol/L Normal 98-107 [facility] Comment on above: Performed By: #### L IPID, TSH, CMP, T4, URIC, FT3 #### [facility] [address] [place] [address] Dr. Allen Alonzo CO2 [Moles/Vol] 28.2 mmol/L Normal 21.0-32.0 [facility] Comment on above: Performed By: #### L IPID, TSH, CMP, T4, URIC, FT3 #### [facility] [address] [place] [address] Dr. Allen Alonzo Creatinine [Mass/Vol] 0.91 mg/dL Normal 0.70-1.30 [facility] Comment on above: Performed By: #### L IPID, TSH, CMP, T4, URIC, FT3 #### [facility] [address] [place] [address] Dr. Allen Alonzo EGFR-AF OMANI >60 Normal >=60 [facility] Comment on above: Performed By: #### L IPID, TSH, CMP, T4, URIC, FT3 #### [facility] [address] [place] [address] Dr. Allen Alonzo EGFR-NON AF OMANI >60 Normal >=60 [facility] Comment on above: Performed By: #### L IPID, TSH, CMP, T4, URIC, FT3 #### [facility] [address] [place] [address] Dr. Allne Alonzo Globulin (S) [Mass/Vol] 3.5 g/dL Normal [facility] Comment on above: Performed By: #### L IPID, TSH, CMP, T4, URIC, FT3 #### [facility] [address] [address] [address] Allen Alonzo Glucose [Mass/Vol] 132 mg/dL Critically high 74-106 [facility] Comment on above: Performed By: #### L IPID, TSH, CMP, T4, URIC, FT3 #### [facility] [address] [place] [address] Dr. Allen Alonzo Potassium [Moles/Vol] 4.0 mmol/L Normal 3.5-5.1 [facility] Comment on above: Performed By: #### L IPID, TSH, CMP, T4, URIC, FT3 #### [facility] [address] [place] [address] Dr. Allen Alonzo Protein [Mass/Vol] 7.1 g/dL Normal 6.4-8.2 [facility] Comment on above: Performed By: #### L IPID, TSH, CMP, T4, URIC, FT3 #### [facility] [address] [place] [address] Dr. Allen Alonzo Sodium [Moles/Vol] 139 mmol/L Normal 136-145 [facility] Comment on above: Performed By: #### L IPID, TSH, CMP, T4, URIC, FT3 #### [facility] [address] [place] [address] Dr. Allen Alonzo Urea nitrogen [Mass/Vol] 13.0 mg/dL Normal 7.0-18.0 [facility] Comment on above: Performed By: #### L IPID, TSH, CMP, T4, URIC, FT3 #### [facility] [address] [place] [address] Dr. Allen Alonzo Urea nitrogen/Creatinine [Mass ratio] 14.3 mg/mg Normal [facility] Comment on above: Performed By: #### L IPID, TSH, CMP, T4, URIC, FT3 #### [facility] [address] [place] [address] Dr. Allen Alonzo T4on 02-19-2023 T4 [Mass/Vol] 7.10 ug/dL Normal 4.50-12.10 [facility] Comment on above: Performed By: #### C BC #### [facility] [address] [place] [address] Dr. Allen Alonzo TSHon 02-19-2023 TSH 3.600 uIU/mL Normal 0.358-3.740 [facility] Comment on above: Performed By: #### L IPID, TSH, CMP, T4, URIC, FT3 #### [facility] [address] [place] [address] Dr. Allen Alonzo URIC ACID SERUMon 02-19-2023 Urate [Mass/Vol] 6.4 mg/dL Normal 3.5-7.2 [facility] Comment on above: Performed By: #### C BC #### [facility] [address] [place] [address] Dr. Allen Alonzo BNPon 02-13-2023 Natriuretic peptide B (Bld) [Mass/Vol] 24.0 pg/mL Normal <=900.0 [facility] Comment on above: Performed By: #### C BC #### [facility] [address] [place] [address] Dr. Allen Alonzo CBC AUTO DIFFon 02-13-2023 BASO # 0.1 103/ul Normal 0.0-0.1 [facility] Comment on above: Performed By: #### C BC #### [facility] [address] [place] [address] Dr. Allen Alonzo Basophils/100 WBC (Bld) 0.8 % Normal 0.2-2.0 [facility] Comment on above: Performed By: #### C BC #### [facility] [address] [place] [address] Dr. Allen Alonzo EO # 0.8 103/ul Critically high 0.0-0.[address] [facility] Comment on above: Performed By: #### C BC #### [facility] [address] [place] [address] Dr. Allen Alonzo Eosinophils/100 WBC (Bld) 6.5 % Normal 0.9-7.0 [facility] Comment on above: Performed By: #### C BC #### [facility] [address] [place] [address] Dr. Allen Alonzo Erythrocyte distribution width (RBC) [Ratio] 12.6 % Normal 11.0-15.0 [facility] Comment on above: Performed By: #### C BC #### [facility] [address] [place] [address] Dr. Allen Alonzo Hematocrit (Bld) [Volume fraction] 43.8 % Normal 42.0-54.0 [facility] Comment on above: Performed By: #### C BC #### [facility] [address] [place] [address] Dr. Allen Alonzo Hemoglobin (Bld) [Mass/Vol] 14.6 g/dL Normal 14.0-18.0 [facility] Comment on above: Performed By: #### C BC #### [facility] [address] [place] [address] Dr. Allen Alonzo IG # 0.04 10e3/ul Critically high 0.00-0.03 [facility] Comment on above: Performed By: #### C BC #### [facility] [address] [place] [address] Dr. Allen Alonzo IG % 0.3 % Normal 0.0-0.5 [facility] [facility] Comment on above: Performed By: #### C BC #### [facility] [address] [place] [address] Dr. Allne Alonzo LYMPH # 3.6 103/ul Normal 1.2-3.8 [facility] Comment on above: Performed By: #### C BC #### [facility] [address] [place] [address] Dr. Allen Alonzo Lymphocytes/100 WBC (Bld) 31.0 % Normal 20.5-60.0 [facility] Comment on above: Performed By: #### C BC #### [facility] [address] [place] [address] Dr. Allen Alonzo MANUAL DIFF REQ NO Normal [facility] Comment on above: Performed By: #### C BC #### [facility] [address] [address] [address] Allen Alonzo MCH (RBC) [Entitic mass] 31.1 pg Normal 25.9-34.0 [facility] Comment on above: Performed By: #### C BC #### [facility] [address] [place] [address] Dr. Allen Alonzo MCHC (RBC) [Mass/Vol] 33.3 g/dL Normal 29.9-35.2 [facility] Comment on above: Performed By: #### C BC #### [facility] [address] [place] [address] Dr. Allen Alonzo MCV (RBC) [Entitic vol] 93.4 fL Normal 80.0-94.0 [facility] Comment on above: Performed By: #### C BC #### [facility] [address] [place] [address] Dr. Allen Alonzo MONO # 0.8 103/ul Normal 0.3-0.8 [facility] Comment on above: Performed By: #### C BC #### [facility] [address] [place] [address] Dr. Allen Alonzo Monocytes/100 WBC (Bld) 6.9 % Normal 1.7-12.0 [facility] Comment on above: Performed By: #### C BC #### [facility] [address] [place] [address] Dr. Allen Alonzo NEUT # 6.3 103/ul Normal 1.4-6.5 [facility] Comment on above: Performed By: #### C BC #### [facility] [address] [place] [address] Dr. Allen Alonzo Neutrophils/100 WBC (Bld) 54.5 % Normal 43.0-75.0 [facility] Comment on above: Performed By: #### C BC #### [facility] [address] [place] [address] Dr. Allen Alonzo Platelet mean volume (Bld) [Entitic vol] 10.8 fL Normal 9.5-13.5 [facility] Comment on above: Performed By: #### C BC #### [facility] [address] [place] [address] Dr. Allen Alonzo PLT 224 103/ul Normal 150-450 [facility] Comment on above: Performed By: #### C BC #### [facility] [address] [place] [address] Dr. Allen Alonzo RBC 4.69 106/ul Critically low 4.70-6.[address] [facility] Comment on above: Performed By: #### C BC #### [facility] [address] [place] [address] Dr. Allen Alonzo WBC 11.5 103/ul Critically high 4.0-11.0 [facility] Comment on above: Performed By: #### C BC #### [facility] [address] [place] [address] Dr. Allen Alonzo Covid-19 PCR (CVDTBH)on 01-29 SARS-CoV-2 (COVID-19) RNA ZOLTAN+probe Ql (Unsp spec) Not detected Normal NOT DETECTED [facility] Comment on above: Result Comment: THIS TEST IS NOT APPROVED BY THE FDA. IT HAS BEEN AUTHORIZED FOR USE UNDER AN EMERGENCY USE AUTHORIZATION. Performed By: #### C BC #### [facility] [address] [place] [address] Dr. Allen Alonzo D-DIMERon 02-13-2023 D-DIMER 0.55 mg/L FEU Normal <=0.59 [facility] Comment on above: Performed By: #### C BC #### [facility] [address] [place] [address] Dr. Allen Alonzo D-DIMER COMMENTS SEE BELOW Normal [facility] Comment on above: Result Comment: Incr [...] hospitalization. Performed By: #### C BC #### [facility] [address] [place] [address] Dr. Allen Alonzo INFLUENZA A AND B AGon 02-13 INFLUENZA A AG Negative Normal NEGATIVE SEE COMMENT [facility] Comment on above: Performed By: #### P SASC #### [facility] [address] [place] [address] Dr. Allen Alonzo INFLUENZA B AG Negative Normal NEGATIVE SEE COMMENT [facility] Comment on above: Performed By: #### P SASC #### [facility] [address] [place] [address] Dr. Allen Alonzo LACTATE/LACTIC ACIDon 2022 Lactate [Moles/Vol] 2.0 mmol/L Normal 0.4-2.0 [facility] Comment on above: Performed By: #### C BC #### [facility] [address] [place] [address] Dr. Allen Alonzo PROF 14(COMP METB)on 023 Albumin [Mass/Vol] 3.7 g/dL Normal 3.4-5.0 [facility] Comment on above: Performed By: #### P SASC #### [facility] [address] [place] [address] Dr. Allen Alonzo Albumin/Globulin [Mass ratio] 1.1 {ratio} Normal [facility] Comment on above: Performed By: #### P SASC #### [facility] [address] [place] [address] Dr. Allen Alonzo ALP [Catalytic activity/Vol] 96 U/L Normal 46-116 [facility] Comment on above: Performed By: #### P SASC #### [facility] [address] [place] [address] Dr. lAlen Alonzo ALT [Catalytic activity/Vol] 80 U/L Critically high 16-63 [facility] Comment on above: Performed By: #### P SASC #### [facility] [address] [place] [address] Dr. Allen Alonzo Anion gap [Moles/Vol] 16.7 mmol/L Normal [facility] Comment on above: Performed By: #### P SASC #### [facility] [address] [address] [address] Allen Alonzo AST [Catalytic activity/Vol] 55 U/L Critically high 15-37 [facility] Comment on above: Performed By: #### P SASC #### [facility] [address] [address] [address] Allen Alonzo Bilirubin [Mass/Vol] 0.5 mg/dL Normal 0.2-1.0 [facility] Comment on above: Performed By: #### P SASC #### [facility] [address] [address] [address] Allen Alonzo Calcium [Mass/Vol] 9.3 mg/dL Normal 8.5-10.1 [facility] Comment on above: Performed By: #### P SASC #### [facility] [address] [address] [address] Allen Alonzo Chloride [Moles/Vol] 102 mmol/L Normal 98-107 [facility] Comment on above: Performed By: #### P SASC #### [facility] [address] [address] [address] Allen Alonzo CO2 [Moles/Vol] 26.6 mmol/L Normal 21.0-32.0 [facility] Comment on above: Performed By: #### P SASC #### [facility] [address] [address] [address] Allen Alonzo Creatinine [Mass/Vol] 0.96 mg/dL Normal 0.70-1.30 [facility] Comment on above: Performed By: #### P SASC #### [facility] [address] [address] [address] Allen Alonzo EGFR-AF OMANI >60 Normal >=60 [facility] Comment on above: Performed By: #### P SASC #### [facility] [address] [address] [address] Allen Alonzo EGFR-NON AF OMANI >60 Normal >=60 [facility] Comment on above: Performed By: #### P SASC #### [facility] [address] [address] [address] Allen Alonzo Globulin (S) [Mass/Vol] 3.5 g/dL Normal [facility] Comment on above: Performed By: #### P SASC #### [facility] [address] [address] [address] Allen Alonzo Glucose [Mass/Vol] 142 mg/dL Critically high 74-106 [facility] Comment on above: Performed By: #### P SASC #### [facility] [address] [address] [address] Allen Alonzo Potassium [Moles/Vol] 4.3 mmol/L Normal 3.5-5.1 [facility] Comment on above: Performed By: #### P SASC #### [facility] [address] [address] [address] Allen Alonzo Protein [Mass/Vol] 7.2 g/dL Normal 6.4-8.2 [facility] Comment on above: Performed By: #### P SASC #### [facility] [address] [address] [address] Allen Alonzo Sodium [Moles/Vol] 141 mmol/L Normal 136-145 [facility] Comment on above: Performed By: #### P SASC #### [facility] [address] [address] [address] Allen Alonzo Urea nitrogen [Mass/Vol] 11.0 mg/dL Normal 7.0-18.0 [facility] Comment on above: Performed By: #### P SASC #### [facility] [address] [address] [address] Allen Alonzo Urea nitrogen/Creatinine [Mass ratio] 11.5 mg/mg Normal [facility] Comment on above: Performed By: #### P SASC #### [facility] [address] [address] [address] Allen Alonzo SYMPTOMATIC COVID-19 ANTIGEN on 02-13-2023 EUA Statement SEE BELOW Normal [facility] Comment on above: Result Comment: This test [...] sooner. Performed By: #### C BC #### [facility] [address] [place] [address] Dr. Allen Alonzo SARS-CoV-2 (COVID-19) RNA ZOLTAN+probe Ql (Unsp spec) Negative Normal NEGATIVE [facility] Comment on above: Performed By: #### C BC #### [facility] [address] [place] [address] Dr. Allen Alonzo TROPONIN, HIGH SENSITIVITYon 02-13-2023 HSTROP 5.1 pg/mL Normal 4.0-76.1 [facility] Comment on above: Result Comment: CUT- OFF POINTS HAVE BEEN ESTABLISHED BASED ON THE FOURTH UNIVERSAL DEFINITIONS OF MYOCARDIAL INFARCTION. THE UPPER REFERENCE LIMIT (URL) OF TROPONIN, DEFINED THE 99TH PERCENTILE OF cTnI DISTRIBUTION IN A REFERENCE POPULATION, HAS BEEN CONFIRMED THE DECISION THRESHOLD FOR SD DIAGNOSIS. Performed By: #### C BC #### [facility] [address] [place] [address] Dr. Allen Alonzo HSTROP 5.4 pg/mL Normal 4.0-76.1 [facility] Comment on above: Result Comment: CUT- OFF POINTS HAVE BEEN ESTABLISHED BASED ON THE FOURTH UNIVERSAL DEFINITIONS OF MYOCARDIAL INFARCTION. THE UPPER REFERENCE LIMIT (URL) OF TROPONIN, DEFINED THE 99TH PERCENTILE OF cTnI DISTRIBUTION IN A REFERENCE POPULATION, HAS BEEN CONFIRMED THE DECISION THRESHOLD FOR SD DIAGNOSIS. Performed By: #### C BC #### [facility] [address] [place] [address] Dr. Allen Alonzo XR CHEST 2 Von [...] by: WENDY JESSICA Date: 2023-02-13 01:12 Normal [facility] Vital Signs Date Time Vital Sign Value Performing Clinician Mary lity 03-28-2023 15:27-0400 Blood Pressure Location Horacio [facility] 03-28-2023 15:27-0400 Diastolic blood pressure 84 mm[Hg] Hor[facility] 03-28-2023 15:27-0400 Heart rate 76 /min Horacio N[facility] 03-28-2023 15:27-0400 Respiratory rate 16 /min Horacio N[facility] 03-28-2023 15:27-0400 Systolic blood pressure 122 mm[Hg] Horacio [facility] Encounters Encounter Date Encounter Type Care Provider Facility Start: 09-19-2023 End: 09-19-2023 ambulatory [facility] Start: 05-08-2023 End: 05-08-2023 ambulatory [facility] Start: 04-25-2023 End: 04-26-2023 ambulatory Horacio SARABIA Facility:CD:[id number] Start: 04-04-2023 End: 04-04-2023 ambulatory [facility] Start: 03-28-2023 End: 03-29-2023 ambulatory Horacio SARABIA Facility:[facility] Start: 03-28-2023 End: 03-28-2023 Patient encounter procedure Horacio SARABIA [facility] Start: 03-14-2023 End: 03-14-2023 [facility] Start: 03-01-2023 ambulatory Horacio NILL Facility:[facility] Start: 02-22-2023 End: 02-22-2023 ambulatory EDVIN JAMES Facility:[facility] Start: 02-19-2023 End: 02-20-2023 ambulatory EDVIN JAMES Facility:[facility] Start: 02-13-2023 End: 02-13-[address] ANAMARIA MATA . Facility:[facility] Procedures Date Procedure Procedure Detail Performing Clinician Start: 02-19-[address] MAIRA MATA . Comment on above: Performed By: #### P [facility] #### [facility] [address] [place] [address] Dr. Allen Alonzo Start: 01-18-2021 Arthroscopy of shoulder Horacio NILL Arthroscopy of knee Horacio NILL Colonoscopy Horacio NILL Excision of uvula Horacio NI LL Tonsillectomy and adenoidectomy Horacio NILL Immunizations Immunization Date Immunization Notes Care Provider Fa cili 03-01-2021 SARS-CoV-2 (COVID-19 ) mRNA BNT-162b2 vax Horacio NILL [facility] [place] 02-08-2021 SARS-CoV-2 (COVID-19 ) mRNA BNT-162b2 vax Horacio NILL [facility] [place] Payers Date Payer Category Payer Unknown [id number] [id number] [id number] 1965 Unknown [id number] [id number] [id number] 1965 Unknown [id number] 2.16.84 [id number] 1965 Unknown [id number] 2.16.8 [id number] 1965 Unknown [id number] 2.16.8 [id number] 1959 Unknown [id number] Social History Date Type Detail Facility Start: 03-28-2023 Tobacco smoking status Never s moked tobacco (finding) [facility] [place] Tobacco smoking status Never [facility] [place] Sex Assigned At Male [facility] Equipment Procedure Code Equipment Code Equipment Origin al Text Equipment Identifier Dates SHOULDER ARTHROS COPY W/ POSSIBLE REPAIR Checo Packer DO 01/18/21 Non Biological Shoulder L [id number] FDA Start: 01-18-2021 Functional Status Date Assessment Result Facility 03-28-2023 Functional Status N/A [facility] [place] Progress note 09-19-2023 Note Date & Type Note Facility 09-19-2023 Note [facility] Subjective Leander Ortiz is a [...] fecal occult blood test Essential hypertension Diabetes ([facility]) Arthritis Anxiety Family History Problem Relation [...] 04/04/2023 57 Atri (more content not included)... [facility] Progress note 05-08-2023 Note Date & Type Note Facility 05-08-2023 Note Patient here for fol low up heart cath on 04/04/[address] Sena. Denies chest pain and SOB. Doing ok cardiac ahumada he says. Review of Systems Cardiovascular: Positive for leg swelling (wears compression stockings). Musculoskeletal: Positive for neck pain. Neurological: Positive for headaches. All other systems reviewed and are negative. [facility] Progress note 05-08-2023 Note Date & [...] with normal sy (more content not included)... [facility] Clinical Note 04-04-2023 Note Date & Type Note Facility 04-04-2023 Note Patient: Leander wolff Procedure Information Date/Time: 04/04/23 1030 Procedure: Coronary angiography (Left) Location: [facility] ADMINISTRATIVE TECHNICIAN 3 / [facility] (Cath) Providers: Donald Sena MD Clinical information reviewed: Allergies Meds Physical Exam Airway Mallampati: IV TM distance: >3 FB Neck ROM: full Cardiovascular Rhythm: regular Rate: normal Dental Pulmonary Abdominal Anesthesia Plan ASA 3 other (Conscious sedation) Anesthetic plan and risks discussed with patient. Use of blood products discussed with patient who consented to blood products. Additional Equipment Requests [facility] Clinical Note 03-28-2023 Note Date & [...] week, 01/11/2021 Employment/School Employed, Work/School description: [employer] 01/11/2021 Substance Abuse - Denies Substance Abuse, 01/11/2021 Tobacco - Denies Toba (more content not included)... [facility] Comment on above: Result Comment: Elec tronically [...] for 1 day, Disp: , Rfl: HYDROcodone-acetaminophen ([place]) 5-325 mg tablet, Take by mouth., Disp: [...] visit: Cardiovascular stre (more content not included)... [facility] Progress note 03-14-2023 Note Date & Type Note Facility 03-14-2023 Note Review of Systems Respiratory: Positive for shortness of breath. Neurological: Positive for headaches. All other systems reviewed and are negative. [facility] Evaluation + Plan note Note Date & Type Note Facility Evaluation + Plan note No data available for this section [facility] [place] [facility] Discharge instructions Note Date & Type Note Facility Hospital Discharge instructions No data available for this section [facility] [place] Progress note Note Date & Type Note Facility Progress note No data available for this section [facility] [place] Summary Purpose Family History No Family History [...] AUTHOR AUTHOR'S ORGANIZ ATION 05/11/2023 [place] [facility] DATE CREATED AUTHOR AUTHOR'S ORGANIZ ATION 09/20/2023 [facility] Patient Care team informatio n (unrecognized section and content) Personnel Name: Anamaria Mata MD Address: Address: [address] [place] [address] FOR RECORDS PERTAINING TO PATIENTS WHO ARE [...] BE BASED ON THE PRIMARY CLINICAL RECORDS. [facility]. provides no warranty or guarantee of the accuracy or completeness of information in this document.
[2023-12-12 15:58] LABS: SARS-CoV-2 NAA DETECTED (NOT DETECTE)
== END 2023-12-12 11:28 | disposition home or self-care (01) ==
LOC: LAB 11:27
PROVIDERS: PCP Family Medicine; Visit Provider Family Medicine
DX: R50.9 Fever, unspecified (principal)
CPT/HCPCS: 87635

== ENCOUNTER 2024-04-02 07:24 | Outpatient (OUT) | payer BC, SELFPAY ==
--- OUTSIDE RECORDS SUMMARY | 2024-04-02 07:28 | XMS_ITS | CCD ---
Author Organization [facility] Care Team Providers Care Head Setter Name Role Phone HANNAH ., DR CONRAD Primary Care Unavailable MARKER ., DR DOLL Attending Unavailable MARKER ., DR DOLL Consulting Unavailable MARKER ., DR DOLL Admitting Unavailable JASKARAN, WENDY Consulting Unavailable EDVIN JAMES Attending Unavailable EDVIN JAMES Consulting Unavailable EDVIN JAMES Admitting Unavailable HOY ., DR CONRAD Primary Care Unavailable EDVIN JAMES Consulting Unavailable EDVIN JAMES Admitting Unavailable HOAdarsh ., DR CONRAD Primary Care Unavailable EDVIN JAMES Attending Unavailable Anamaria Mata Primary Care Physician [phone] Horacio SARABIA Attending Unavailable Anamaria Mata Referring Unavailable Horacio SARABIA Attending Unavailable DONALD SENA Admitting Unavailable DONALD SENA Attending Unavailable DONALD SENA Attending Unavailable RAMOS HARO Attending Unavailable RAMOS HARO Attending Unavailable DONALD SENA Referring Unavailable Allergies Allergy Classification Reported Allergen(s) Allergy Type Date of Onset Reaction(s) Facility (2 sources) Ciprofloxacin; Translations: [Cipro] Drug Allergy 1 [facility] Repository (2 sources) Clindamycin; Translations: [clindamycin] Drug Allergy 1 [facility] Repository (3 sources) Penicillin; Translations: [penicillin] Drug Allergy 1 Anaphylactic reaction [facility] Repository (1 source) Penicillin; Translations: [PENICILLIN G] Drug Allergy 3 [facility] Repository Medications Current Medications Medication Drug Class(es) [...] disease (2 sources) 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; Translations: [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] Onset: 09-19-2023 [...] 01-11-2021 Chronic Other aftercare (1 source) Other fdc (current) drug therapy; Translations: [OTH SENIOR CARE CURRENT DRUG THERAPY] Onset: 02-14-2023 Episodic Other aftercare (1 source) 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; Translations: [SENIOR CARE USE ORAL HYPOGLYCEMIC DX] Onset: 02-14-2023 Episodic [...] Range Facility Office Visiton 09-19-2023 Follow-up visit [id number] Leander Ortiz 1965 M Date Provider Department Center 09/19/2023 DONALD SMITH [place] Lu Family History Problem Relation Age of Onset No Known Problems Mother No Known Problems Father Family Status - Relation Status Age at Mother Father Level of Service:39206 NE OFFICE/OUTPATIENT ESTABLISHED LOW MDM 20 MIN Normal [facility] Reminderson 05-10-2023 Reminders - From: Julia Toribio LPN To: N - Clinical; Sent: 05/10/2023 10:41:47 EDT Show up: 03/26/2028 07:00:00 EDT Subject: colonoscopy recall Due Date/Time: 04/25/2028 07:00:00 EDT Reminder/Recall Patient due for surveillance colonoscopy 04/25/2028. Normal [facility] Office Visiton 05-08-2023 Follow-up visit [id number] MicvikiLeander sanford Mayo 1965 M Date Provider Department Center 05/08/2023 [id number] HARO [place] Family History Problem Relation Age of Onset No Known Problems Mother No Known Problems Father Family Status - Relation Status Age at Mother Father Level of Service:39857 NE OFFICE/OUTPATIENT ESTABLISHED MOD MDM 30-39 MIN Normal [facility] Pathology Noteon 05-01-2023 Pathology Note [id number] #1.00CD:127 Normal [facility] Outside Colonoscopyon 2022 Outside Colonoscopy [id number] #1.00CD:127 Normal [facility] Lab Reportson 04-25-2023 Lab Reports [id number] #1.00CD:127 Normal [facility] CBCon 04-04-2023 Erythrocyte distribution width (RBC) [Ratio] 13.4 % Normal 11.5-15.0 [facility] Comment on above: Performed By: #### L [id number] ####[facility] (BEAKER)[address] [place] [address] ERYTHROCYTE MEAN CORPUSCULAR HEMOGLOBIN CONCENTRATION (G/DL) BY AUTOMATED 34.1 g/dL Normal 32.0-35.0 [facility] Comment on above: Performed By: #### L [id number] ####[facility] ([facility])[address] [place] [address] Hematocrit (Bld) [Volume fraction] 40.5 % Normal 39.0-55.0 [facility] Comment on above: Performed By: #### L [id number] ####[facility] ([facility])[address] [place] [address] Hemoglobin (Bld) [Mass/Vol] 13.8 g/dL Normal 13.0-17.0 [facility] Comment on above: Performed By: #### L [id number] ####[facility] ([facility])[address] [place], [place] [address] MCH (RBC) [Entitic mass] 31.8 pg Normal 27.0-33.0 [facility] Comment on above: Performed By: #### L [id number] ####[facility] ([facility])[address] [place] [address] MCV (RBC) [Entitic vol] 93.3 fL Normal 82.0-98.0 [facility] Comment on above: Performed By: #### L [id number] ####[facility] ([facility])[address] [place] [address] PLATELETS (10*3/UL) IN BLOOD AUTOMATED COUNT 224 10*3/uL Normal 150-400 [facility] Comment on above: Performed By: #### L [id number] ####[facility] ([facility])[address] [place] [address] RBC (Bld) [#/Vol] 4.34 10*6/uL Normal 4.20-5.70 [facility] Comment on above: Performed By: #### L [id number] ####[facility] ([facility])[address] [place] [address] WBC (Bld) [#/Vol] 9.13 10*3/uL Normal 4.00-10.[address] [facility] Comment on above: Performed By: #### L [id number] ####[facility] (BEAKER)[address] [place] [address] HPon 04-04-2023 HP H&P reviewed. The patient was examined and there are no changes to the H&P. [facility] NURSNOTEon 04-04-2023 NURSNOTE RN educated pt on d/c instructions. RN encouraged pt to voice any questions or concerns. Pt verbalizes no questions or concerns at this time. Pt was wheeled off of unit with all of belongings. [facility] Consent for Procedure/Surger yon 03-29-2023 Consent for Procedure/Surgery [id number] #1.00CD:127 [facility] Facesheeton 03-29-2023 Facesheet [id number] #1.00CD:127 [facility] Transfer Inon 03-29-2023 Transfer In [id number]# 1.00CD:127 [facility] Ambulatory Visit Summaryon 0 03-28-2023 Ambulatory Visit Summary LEANDER ORTIZ :1965 Visit Date:03/28/2023 Ambulatory Visit Instructions Your Diagnosis Positive fecal occult blood test BMI 45.0-49.9, adult Your Care Team Attending Physician - NO LUIS, Horacio Lowery Primary Care Physician - Anamaria Mata MD Referring Physician - Anamaria Mata MD This [...] treatment for. RCT (rotator cuff tear) Normal [facility] Orders Onlyon 03-26-2023 Orders Only [id number] Leander Ortiz 1965 M Date Provider Department Center 03/26/2023 [facility] No family history on file Normal [facility] HPon 03-14-2023 Cardiology Clinic Note Subjective Leander [...] 1 day, Disp: , Rfl: HYDROcodone-acetamin ophen ([place]) 5-325 mg tablet, Take by mouth., Disp: [...] Cardiovascular stre (more content not included)... Normal [facility] Office Visiton 03-14-2023 Follow-up visit [id number] Leander Ortiz 1965 M Date Provider Department Center 03/14/2023 [id number] HARO [facility] No family history on file Level of Service:24786 NE OFFICE/OUTPATIENT NEW MODERATE MDM 45-59 MINUTES Reason for Visit and Comments: Shortness of Breath [] Leg Swelling [] Normal [facility] Consultation Noteon 03-01-20 Consultation Note [id number] #1.00CD:127 Normal [facility] Lab Reportson 03-01-2023 Lab Reports [id number] #1.00CD:127 Normal [facility] Patient Correspondenceon Patient Correspondence [id number] #1.00CD:127 Normal [facility] OCC BLD IMMUNO SCREENon 01-30 OCCULT BLOOD Positive Abnormal NEGATIVE [facility] Comment on above: Performed By: #### O BSCRN #### [facility] [address] [place], [place] [id number] Dr. Allen Alonzo INSULINon 02-20-2023 Insulin 17.1 uIU/mL Normal 2.6-24.[address] [facility] Comment on above: Performed By: #### I NSULIN #### [facility] [address] [place] [address] Dr. Allen Alonzo CBC AUTO DIFFon 02-19-2023 BASO # 0.1 103/ul Normal 0.0-0.[address] [facility] Comment on above: Performed By: #### C BC #### [facility] [address] [place] [address] Dr. Allen Alonzo Basophils/100 WBC (Bld) 1.1 % Normal 0.2-2.[address] [facility] Comment on above: Performed By: #### C BC #### [facility] [address] [place] [address] Dr. Allen Alonzo EO # 0.8 103/ul Critically high 0.0-0.7 [facility] Comment on above: Performed By: #### C BC #### [facility] [address] [place] [address] Dr. Allen Alonzo Eosinophils/100 WBC (Bld) 7.3 % Critically high 0.9-7.[address] [facility] Comment on above: Performed By: #### C BC #### [facility] [address] [place] [address] Dr. Allen Alonzo Erythrocyte distribution width (RBC) [Ratio] 12.3 % Normal 11.0-15.[address] [facility] Comment on above: Performed By: #### C BC #### [facility] [address] [place] [address] Dr. Allen Alonzo Hematocrit (Bld) [Volume fraction] 39.3 % Critically low 42.0-54.[address] [facility] Comment on above: Performed By: #### C BC #### [facility] [address] [place] [address] Dr. Allen Alonzo Hemoglobin (Bld) [Mass/Vol] 13.7 g/dL Critically low 14.0-18.[address] [facility] Comment on above: Performed By: #### C BC #### [facility] [address] [address] [address] Allen Alonzo IG # 0.02 10e3/ul Normal 0.00-0.[address] [facility] Comment on above: Performed By: #### C BC #### [facility] [address] [place] [address] Dr. Allen Alonzo IG % 0.2 % Normal 0.0-0.[address] [facility] Comment on above: Performed By: #### C BC #### [facility] [address] [place] [address] Dr. Allen Alonzo LYMPH # 4.8 103/ul Critically high 1.2-3.8 [facility] Comment on above: Performed By: #### C BC #### [facility] [address] [place] [address] Dr. Allen Alonzo Lymphocytes/100 WBC (Bld) 43.2 % Normal 20.5-60.[address] [facility] Comment on above: Performed By: #### C BC #### [facility] [address] [place] [address] Dr. Allen Alonzo MANUAL DIFF REQ NO Normal [facility] Comment on above: Performed By: #### C BC #### [facility] [address] [place] [address] Dr. Allen Alonzo MCH (RBC) [Entitic mass] 32.0 pg Normal 25.9-34.[address] [facility] Comment on above: Performed By: #### C BC #### [facility] [address] [place] [address] Dr. Allen Alonzo MCHC (RBC) [Mass/Vol] 34.9 g/dL Normal 29.9-35.2 [facility] Comment on above: Performed By: #### C BC #### [facility] [address] [place] [address] Dr. Allen Alonzo MCV (RBC) [Entitic vol] 91.8 fL Normal 80.0-94.[address] [facility] Comment on above: Performed By: #### C BC #### [facility] [address] [place] [address] Dr. Allen Alonzo MONO # 0.8 103/ul Normal 0.3-0.8 [facility] Comment on above: Performed By: #### C BC #### [facility] [address] [place] [address] Dr. Allen Alonzo Monocytes/100 WBC (Bld) 6.7 % Normal 1.7-12.[address] [facility] Comment on above: Performed By: #### C BC #### [facility] [address] [place] [address] Dr. Allen Alonzo NEUT # 4.6 103/ul Normal 1.4-6.5 [facility] Comment on above: Performed By: #### C BC #### [facility] [address] [place] [address] Dr. Allen Alonzo Neutrophils/100 WBC (Bld) 41.5 % Critically low 43.0-75.[address] [facility] Comment on above: Performed By: #### C BC #### [facility] [address] [place] [address] Dr. Allen Alonzo Platelet mean volume (Bld) [Entitic vol] 10.6 fL Normal 9.5-13.5 [facility] Comment on above: Performed By: #### C BC #### [facility] [address] [place] [address] Dr. Allen Alonzo PLT 212 103/ul Normal 150-450 [facility] Comment on above: Performed By: #### C BC #### [facility] [address] [place] [address] Dr. Allen Alonzo RBC 4.28 106/ul Critically low 4.70-6.10 [facility] Comment on above: Performed By: #### C BC #### [facility] [address] [place] [address] Dr. Allen Alonzo WBC 11.2 103/ul Critically high 4.0-11.0 [facility] Comment on above: Performed By: #### C BC #### [facility] [address] [place] [address] Dr. Allen Alonzo FREE T3on 02-19-2023 FREE T3 2.20 pg/mlL Normal 2.18-3.[address] [facility] Comment on above: Performed By: #### L IPID, TSH, CMP, T4, URIC, FT3 #### [facility] [address] [address] [address] Allen Alonzo GLYCOHEMOGLOBIN A1Con 2022 ADA RECOMMENDATION SEE BELOW Normal [facility] Comment on above: Result Comment: ADA RECOMMENDED LIMIT 4.0 - 6.0 ADA THERAPEUTIC TARGET < 7.0 ACTION SUGGESTED > 7.0 Performed By: #### A 1C #### [facility] [address] [address] [address] Allen Alonzo Glucose [Mass/Vol] 183 mg/dL Normal [facility] Comment on above: Performed By: #### A 1C #### [facility] [address] [address] [address] Allen Alonzo HbA1c (Bld) [Mass fraction] 8.0 % Critically high 4.5-6.[address] [facility] Comment on above: Performed By: #### A 1C #### [facility] [address] [address] [address] Allen Alonzo LIPID PROFILEon 02-19-2023 CHOL-HDL RATIO NORM SEE BELOW Normal [facility] Comment on above: Result Comment: 3.3 - 4.4 LOW RISK 4.4 - 7.1 AVERAGE RISK 7.1 - 11.0 MODERATE RISK >11.0 HIGH RISK Performed By: #### L IPID, TSH, CMP, T4, URIC, FT3 #### [facility] [address] [address] [address] Allen Alonzo Cholesterol [Mass/Vol] 181 mg/dL Normal <=[address] [facility] Comment on above: Performed By: #### L IPID, TSH, CMP, T4, URIC, FT3 #### [facility] [address] [address] [address] Allen Alonzo Cholesterol in HDL [Mass/Vol] 44 mg/dL Normal 40-[address] [facility] Comment on above: Performed By: #### L IPID, TSH, CMP, T4, URIC, FT3 #### [facility] [address] [address] [address] Allen Alonzo Cholesterol in LDL [Mass/Vol] 87.0 mg/dL Normal [facility] Comment on above: Performed By: #### L IPID, TSH, CMP, T4, URIC, FT3 #### [facility] [address] [address] [address] Allen Alonzo Cholesterol.total/Cho lesterol in HDL [Mass ratio] 4.1 {ratio} Normal [facility] Comment on above: Performed By: #### L IPID, TSH, CMP, T4, URIC, FT3 #### [facility] [address] [place] [address] Dr. Allen Alonzo HDL NORMAL > or = 60 mg/dl - LOW CARDIOVASCULAR RISK <40 mg/dl - HIGH CARDIOVASCULAR RISK Normal [facility] Comment on above: Performed By: #### L IPID, TSH, CMP, T4, URIC, FT3 #### [facility] [address] [place] [address] Dr. Allen Alonzo LDL CALC NORMAL SEE BELOW Normal [facility] Comment on above: Result Comment: <100 mg/dl OPTIMAL 100 - 129 mg/dl NEAR OR ABOVE OPTIMAL 130 - 159 mg/dl BORDERLINE HIGH 160 - 189 mg/dl HIGH >190 mg/dl VERY HIGH Performed By: #### L IPID, TSH, CMP, T4, URIC, FT3 #### [facility] [address] [address] [address] Allen Alonzo Triglyceride [Mass/Vol] 250 mg/dL Critically high <=150 [facility] Comment on above: Performed By: #### L IPID, TSH, CMP, T4, URIC, FT3 #### [facility] [address] [place] [address] Dr. Allen Alonzo VLDL CALC 50.0 mg/dL Normal [facility] Comment on above: Performed By: #### L IPID, TSH, CMP, T4, URIC, FT3 #### [facility] [address] [place] [address] Dr. Allen Alonzo PROF 14(COMP METB)on 023 Albumin [Mass/Vol] 3.6 g/dL Normal 3.4-5.0 [facility] Comment on above: Performed By: #### L IPID, TSH, CMP, T4, URIC, FT3 #### [facility] [address] [place] [address] Dr. Allen Alonzo Albumin/Globulin [Mass ratio] 1.0 {ratio} Normal [facility] Comment on above: Performed By: #### L IPID, TSH, CMP, T4, URIC, FT3 #### [facility] [address] [place] [address] Dr. Allen Alonzo ALP [Catalytic activity/Vol] 97 U/L Normal 46-[address] [facility] Comment on above: Performed By: #### L IPID, TSH, CMP, T4, URIC, FT3 #### [facility] [address] [place] [address] Dr. Allen Alonzo ALT [Catalytic activity/Vol] 61 U/L Normal 16-[address] [facility] Comment on above: Performed By: #### L IPID, TSH, CMP, T4, URIC, FT3 #### [facility] [address] [place] [address] Dr. Allen Alonzo Anion gap [Moles/Vol] 14.8 mmol/L Normal [facility] Comment on above: Performed By: #### L IPID, TSH, CMP, T4, URIC, FT3 #### [facility] [address] [place] [address] Dr. Allen Alonzo AST [Catalytic activity/Vol] 31 U/L Normal 15-[address] [facility] Comment on above: Performed By: #### L IPID, TSH, CMP, T4, URIC, FT3 #### [facility] [address] [place] [address] Dr. Allen Alonzo Bilirubin [Mass/Vol] 0.5 mg/dL Normal 0.2-1.[address] [facility] Comment on above: Performed By: #### L IPID, TSH, CMP, T4, URIC, FT3 #### [facility] [address] [address] [address] Allen Alonzo Calcium [Mass/Vol] 8.8 mg/dL Normal 8.5-10.1 [facility] Comment on above: Performed By: #### L IPID, TSH, CMP, T4, URIC, FT3 #### [facility] [address] [place] [address] Dr. Allen Alonzo Chloride [Moles/Vol] 100 mmol/L Normal 98-107 [facility] Comment on above: Performed By: #### L IPID, TSH, CMP, T4, URIC, FT3 #### [facility] [address] [place] [address] Dr. Allen Alonzo CO2 [Moles/Vol] 28.2 mmol/L Normal 21.0-32.[address] [facility] Comment on above: Performed By: #### L IPID, TSH, CMP, T4, URIC, FT3 #### [facility] [address] [place] [address] Dr. Allen Alonzo Creatinine [Mass/Vol] 0.91 mg/dL Normal 0.70-1.[address] [facility] Comment on above: Performed By: #### L IPID, TSH, CMP, T4, URIC, FT3 #### [facility] [address] [place] [address] Dr. Allen Alonzo EGFR-AF CITIZEN [place] >60 Normal >=[address] [facility] Comment on above: Performed By: #### L IPID, TSH, CMP, T4, URIC, FT3 #### [facility] [address] [place] [address] Dr. Allen Alonzo EGFR-NON AF CITIZEN [place] >60 Normal >=[address] [facility] Comment on above: Performed By: #### L IPID, TSH, CMP, T4, URIC, FT3 #### [facility] [address] [place] [address] Dr. Allen Alonzo Globulin (S) [Mass/Vol] 3.5 g/dL Normal [facility] Comment on above: Performed By: #### L IPID, TSH, CMP, T4, URIC, FT3 #### [facility] [address] [place] [address] Dr. Allen Alonzo Glucose [Mass/Vol] 132 mg/dL Critically high 74-106 T [facility] Comment on above: Performed By: #### L IPID, TSH, CMP, T4, URIC, FT3 #### [facility] [address] [place] [address] Dr. Allen Alonzo Potassium [Moles/Vol] 4.0 mmol/L Normal 3.5-5.[address] [facility] Comment on above: Performed By: #### L IPID, TSH, CMP, T4, URIC, FT3 #### [facility] [address] [place] [address] Dr. Allen Alonzo Protein [Mass/Vol] 7.1 g/dL Normal 6.4-8.2 [facility] [facility] Comment on above: Performed By: #### L IPID, TSH, CMP, T4, URIC, FT3 #### [facility] [address] [place] [address] Dr. Allen Alonzo Sodium [Moles/Vol] 139 mmol/L Normal 136-145 [facility] Comment on above: Performed By: #### L IPID, TSH, CMP, T4, URIC, FT3 #### [facility] [address] [place] [address] Dr. Allen Alonzo Urea nitrogen [Mass/Vol] 13.0 mg/dL Normal 7.0-18.[address] [facility] Comment on above: Performed By: #### L IPID, TSH, CMP, T4, URIC, FT3 #### [facility] [address] [place] [address] Dr. Allen Alonzo Urea nitrogen/Creatinine [Mass ratio] 14.3 mg/mg Normal [facility] Comment on above: Performed By: #### L IPID, TSH, CMP, T4, URIC, FT3 #### [facility] [address] [place] [address] Dr. Allen Alonzo T4on 02-19-2023 T4 [Mass/Vol] 7.10 ug/dL Normal 4.50-12.10 [facility] Comment on above: Performed By: #### C BC #### [facility] [address] [place] [address] Dr. Allen Alonzo TSHon 02-19-2023 TSH 3.600 uIU/mL Normal 0.358-3.740 [facility] Comment on above: Performed By: #### L IPID, TSH, CMP, T4, URIC, FT3 #### [facility] [address] [place] [address] Dr. Allen Alonzo URIC ACID SERUMon 02-19-2023 Urate [Mass/Vol] 6.4 mg/dL Normal 3.5-7.2 [facility] Comment on above: Performed By: #### C BC #### [facility] [address] [place] [address] Dr. Allen Alonzo BNPon 02-13-2023 Natriuretic peptide B (Bld) [Mass/Vol] 24.0 pg/mL Normal <=900.0 [facility] Comment on above: Performed By: #### C BC #### [facility] [address] [place] [address] Dr. Allen Alonzo CBC AUTO DIFFon 02-13-2023 BASO # 0.1 103/ul Normal 0.0-0.[address] [facility] Comment on above: Performed By: #### C BC #### [facility] [address] [place] [address] Dr. Allen Alonzo Basophils/100 WBC (Bld) 0.8 % Normal 0.2-2.0 [facility] Comment on above: Performed By: #### C BC #### [facility] [address] [place] [address] Dr. Allen Alonzo EO # 0.8 103/ul Critically high 0.0-0.7 [facility] Comment on above: Performed By: #### C BC #### [facility] [address] [place] [address] Dr. Allne Alonzo Eosinophils/100 WBC (Bld) 6.5 % Normal 0.9-7.0 [facility] Comment on above: Performed By: #### C BC #### [facility] [address] [place] [address] Dr. Allen Alonzo Erythrocyte distribution width (RBC) [Ratio] 12.6 % Normal 11.0-15.[address] [facility] Comment on above: Performed By: #### C BC #### [facility] [address] [place] [address] Dr. Allen Alonzo Hematocrit (Bld) [Volume fraction] 43.8 % Normal 42.0-54.[address] [facility] Comment on above: Performed By: #### C BC #### [facility] [address] [place] [address] Dr. Allen Alonzo Hemoglobin (Bld) [Mass/Vol] 14.6 g/dL Normal 14.0-18.0 [facility] Comment on above: Performed By: #### C BC #### [facility] [address] [place] [address] Dr. Allen Alonzo IG # 0.04 10e3/ul Critically high 0.00-0.03 [facility] Comment on above: Performed By: #### C BC #### [facility] [address] [place] [address] Dr. Allen Alonzo IG % 0.3 % Normal 0.0-0.[address] [facility] Comment on above: Performed By: #### C BC #### [facility] [address] [place] [address] Dr. Allen Alonzo LYMPH # 3.6 103/ul Normal 1.2-3.[address] [facility] Comment on above: Performed By: #### C BC #### [facility] [address] [place] [address] Dr. Allen Alonzo Lymphocytes/100 WBC (Bld) 31.0 % Normal 20.5-60.0 [facility] Comment on above: Performed By: #### C BC #### [facility] [address] [place] [address] Dr. Allen Alonzo MANUAL DIFF REQ NO Normal [facility] Comment on above: Performed By: #### C BC #### [facility] [address] [place] [address] Dr. Allen Alonzo MCH (RBC) [Entitic mass] 31.1 pg Normal 25.9-34.[address] [facility] Comment on above: Performed By: #### C BC #### [facility] [address] [place] [address] Dr. Allen Alonzo MCHC (RBC) [Mass/Vol] 33.3 g/dL Normal 29.9-35.[address] [facility] Comment on above: Performed By: #### C BC #### [facility] [address] [place] [address] Dr. Allen Alonzo MCV (RBC) [Entitic vol] 93.4 fL Normal 80.0-94.[address] [facility] Comment on above: Performed By: #### C BC #### [facility] [address] [place] [address] Dr. Allen Alonzo MONO # 0.8 103/ul Normal 0.3-0.[address] [facility] Comment on above: Performed By: #### C BC #### [facility] [address] [place] [address] Dr. Allen Alonzo Monocytes/100 WBC (Bld) 6.9 % Normal 1.7-12.[address] [facility] Comment on above: Performed By: #### C BC #### [facility] [address] [place] [address] Dr. Allen Alonzo NEUT # 6.3 103/ul Normal 1.4-6.[address] [facility] Comment on above: Performed By: #### C BC #### [facility] [address] [place] [address] Dr. Allen Alonzo Neutrophils/100 WBC (Bld) 54.5 % Normal 43.0-75.0 [facility] Comment on above: Performed By: #### C BC #### [facility] [address] [place] [address] Dr. Allen Alonzo Platelet mean volume (Bld) [Entitic vol] 10.8 fL Normal 9.5-13.[address] [facility] Comment on above: Performed By: #### C BC #### [facility] [address] [place] [address] Dr. Allen Alonzo PLT 224 103/ul Normal 150-450 [facility] Comment on above: Performed By: #### C BC #### [facility] [address] [place] [address] Dr. Allen Alonzo RBC 4.69 106/ul Critically low 4.70-6.10 [facility] Comment on above: Performed By: #### C BC #### [facility] [address] [id number] [address] Allen Alonzo WBC 11.5 103/ul Critically high 4.0-11.[address] [facility] Comment on above: Performed By: #### C BC #### [facility] [address] [place] [address] Dr. Allen Alonzo Covid-19 PCR (CVDTB)on 01-29 SARS-CoV-2 (COVID-19) RNA ZOLTAN+probe Ql (Unsp spec) Not detected Normal NOT DETECTED [facility] Comment on above: Result Comment: THIS TEST IS NOT APPROVED BY THE FDA. IT HAS BEEN AUTHORIZED FOR USE UNDER AN EMERGENCY USE AUTHORIZATION. Performed By: #### C BC #### [facility] [address] [place] [address] Dr. Allen Alonzo D-DIMERon 02-13-2023 D-DIMER 0.55 mg/L FEU Normal <=0.59 [facility] Comment on above: Performed By: #### C BC #### [facility] [address] [place] [address] Dr. Allen Alonzo D-DIMER COMMENTS SEE BELOW Normal [facility] Comment on above: Result Comment: Incr eases [...] hospitalization. Performed By: #### C BC #### [facility] [address] [address] [address] Allen Alonzo INFLUENZA A AND B AGon 02-13 INFLUENZA A AG Negative Normal NEGATIVE SEE COMMENT [facility] Comment on above: Performed By: #### P SASC #### [facility] [address] [place] [address] Dr. Allen Alonzo INFLUENZA B AG Negative Normal NEGATIVE SEE COMMENT [facility] Comment on above: Performed By: #### P SASC #### [facility] [address] [address] [address] Allen Alonzo LACTATE/LACTIC ACIDon 2022 Lactate [Moles/Vol] 2.0 mmol/L Normal 0.4-2.0 [facility] Comment on above: Performed By: #### C BC #### [facility] [address] [place] [address] Dr. Allen Aolnzo PROF 14(COMP METB)on 023 Albumin [Mass/Vol] 3.7 g/dL Normal 3.4-5.0 [facility] Comment on above: Performed By: #### P SASC #### [facility] [address] [place] [address] Dr. Allen Alonzo Albumin/Globulin [Mass ratio] 1.1 {ratio} Normal [facility] Comment on above: Performed By: #### P SASC #### [facility] [address] [place] [address] Dr. Allen Alonzo ALP [Catalytic activity/Vol] 96 U/L Normal 46-[address] [facility] Comment on above: Performed By: #### P SASC #### [facility] [address] [place] [address] Dr. Allen Alonzo ALT [Catalytic activity/Vol] 80 U/L Critically high 16-[address] [facility] Comment on above: Performed By: #### P SASC #### [facility] [address] [place] [address] Dr. Allen Alonzo Anion gap [Moles/Vol] 16.7 mmol/L Normal [facility] Comment on above: Performed By: #### P SASC #### [facility] [address] [address] [address] Allen Alonzo AST [Catalytic activity/Vol] 55 U/L Critically high 15-[address] [facility] Comment on above: Performed By: #### P SASC #### [facility] [address] [address] [address] Allen Alonzo Bilirubin [Mass/Vol] 0.5 mg/dL Normal 0.2-1.[address] [facility] Comment on above: Performed By: #### P SASC #### [facility] [address] [address] [address] Allen Alonzo Calcium [Mass/Vol] 9.3 mg/dL Normal 8.5-10.1 [facility] Comment on above: Performed By: #### P SASC #### [facility] [address] [address] [address] Allen Alonzo Chloride [Moles/Vol] 102 mmol/L Normal 98-[address] [facility] Comment on above: Performed By: #### P SASC #### [facility] [address] [address] [address] Allen Alonzo CO2 [Moles/Vol] 26.6 mmol/L Normal 21.0-32.[address] [facility] Comment on above: Performed By: #### P SASC #### [facility] [address] [address] [address] Allen Alonzo Creatinine [Mass/Vol] 0.96 mg/dL Normal 0.70-1.[address] [facility] Comment on above: Performed By: #### P SASC #### [facility] [address] [address] [address] Allen Alonzo EGFR-AF CITIZEN [place] >60 Normal >=60 [facility] Comment on above: Performed By: #### P SASC #### [facility] [address] [address] [address] Allen Alonzo EGFR-NON AF CITIZEN OF [place] >60 Normal >=[address] [facility] Comment on above: Performed By: #### P SASC #### [facility] [address] [address] [address] Allen Alonzo Globulin (S) [Mass/Vol] 3.5 g/dL Normal [facility] Comment on above: Performed By: #### P SASC #### [facility] [address] [address] [address] Allen Alonzo Glucose [Mass/Vol] 142 mg/dL Critically high 74-106 [facility] Comment on above: Performed By: #### P SASC #### [facility] [address] [address] [address] Allen Alonzo Potassium [Moles/Vol] 4.3 mmol/L Normal 3.5-5.[address] [facility] Comment on above: Performed By: #### P SASC #### [facility] [address] [place] [address] Dr. Allen Alonzo Protein [Mass/Vol] 7.2 g/dL Normal 6.4-8.2 [facility] Comment on above: Performed By: #### P SASC #### [facility] [address] [address] [address] Allen Alonzo Sodium [Moles/Vol] 141 mmol/L Normal 136-145 [facility] Comment on above: Performed By: #### P SASC #### [facility] [address] [place] [address] Dr. Allen Alonzo Urea nitrogen [Mass/Vol] 11.0 mg/dL Normal 7.0-18.[address] [facility] Comment on above: Performed By: #### P SASC #### [facility] [address] [place] [address] Dr. Allen Alonzo Urea nitrogen/Creatinine [Mass ratio] 11.5 mg/mg Normal [facility] Comment on above: Performed By: #### P SASC #### [facility] [address] [place] [address] Dr. Allen Alonzo SYMPTOMATIC COVID-19 ANTIGEN on 02-13-2023 EUA Statement SEE BELOW Normal [facility] Comment on above: Result Comment: This test [...] sooner. Performed By: #### C BC #### [facility] [address] [place] [address] Dr. Allen Alonzo SARS-CoV-2 (COVID-19) RNA ZOLTAN+probe Ql (Unsp spec) Negative Normal NEGATIVE [facility] Comment on above: Performed By: #### C BC #### [facility] [address] [place] [address] Dr. Allen Alonzo TROPONIN, HIGH SENSITIVITYon 02-13-2023 HSTROP 5.1 pg/mL Normal 4.0-76.[address] [facility] Comment on above: Result Comment: CUT- OFF POINTS HAVE BEEN ESTABLISHED BASED ON THE FOURTH UNIVERSAL DEFINITIONS OF MYOCARDIAL INFARCTION. THE UPPER REFERENCE LIMIT (URL) OF TROPONIN, DEFINED THE 99TH PERCENTILE OF cTnI DISTRIBUTION IN A REFERENCE POPULATION, HAS BEEN CONFIRMED THE DECISION THRESHOLD FOR PA DIAGNOSIS. Performed By: #### C BC #### [facility] [address] [place] [address] Dr. Allen Alonzo HSTROP 5.4 pg/mL Normal 4.0-76.[address] [facility] Comment on above: Result Comment: CUT- OFF POINTS HAVE BEEN ESTABLISHED BASED ON THE FOURTH UNIVERSAL DEFINITIONS OF MYOCARDIAL INFARCTION. THE UPPER REFERENCE LIMIT (URL) OF TROPONIN, DEFINED THE 99TH PERCENTILE OF cTnI DISTRIBUTION IN A REFERENCE POPULATION, HAS BEEN CONFIRMED THE DECISION THRESHOLD FOR PA DIAGNOSIS. Performed By: #### C BC #### [facility] [address] [place] [address] Dr. Allen Alonzo XR CHEST 2 Von [...] by: WENDY JESSICA Date: 2023-02-13 01:12 Normal [facility] Vital Signs Date Time Vital Sign Value Performing Clinician Mary adorno 03-28-2023 15:27-0400 Blood Pressure Location Horacio CHÁVEZL [facility] 03-28-2023 15:27-0400 Diastolic blood pressure 84 mm[Hg] Horacio CHÁVEZL [facility] 03-28-2023 15:27-0400 Heart rate 76 /min Horacio CHÁVEZL [facility] 03-28-2023 15:27-0400 Respiratory rate 16 /min Horacio NILL [facility] 03-28-2023 15:27-0400 Systolic blood pressure 122 mm[Hg] Horacio SARABIA [facility] Encounters Encounter Date Encounter Type Care Provider Facility Start: 09-19-2023 End: 09-19-2023 ambulatory [facility] Start: 05-08-2023 End: 05-08-2023 ambulatory [facility] Start: 04-25-2023 End: 04-26-2023 ambulatory Horacio SARABIA Facility:[id number] Start: 04-04-2023 End: 04-04-2023 ambulatory [facility] Start: 03-28-2023 End: 03-29-2023 ambulatory Horacio R NILL Facility: [facility] Start: 03-28-2023 End: 03-28-2023 Patient encounter procedure Horacio SARABIA General Surgery [facility] Start: 03-14-2023 End: 03-14-2023 ambulatory [facility] Start: 03-01-2023 ambulatory Horacio NILL Facility:[facility] Start: 02-22-2023 End: 02-22-2023 ambulatory EDVIN JAMES Facility:[facility] Start: 02-19-2023 End: 02-20-2023 ambulatory EDVIN JAMES Facility:[facility] Start: 02-13-2023 End: 02-13-[address] ANAMARIA MATA . Facility:[facility] Procedures Date Procedure Procedure Detail Performing Clinician Start: 02-19-[address] MAIRA MATA . Comment on above: Performed By: #### P [facility] #### [facility] [address] [place] [address] Dr. Allen Alonzo Start: 01-18-2021 Arthroscopy of shoulder Horacio NILL Arthroscopy of knee Horacio NILL Colonoscopy Horacio NILL Excision of uvula Horacio NI LL Tonsillectomy and adenoidectomy Horacio NILL Immunizations Immunization Date Immunization Notes Care Provider Fa [facility] 03-01-2021 SARS-CoV-2 (COVID-19 ) mRNA BNT-162b2 vax Horacio NILL [facility] 02-08-2021 SARS-CoV-2 (COVID-19 ) mRNA BNT-162b2 vax Horacio NILL [facility] Payers Date Payer Category Payer Unknown [id number] [id number] [id number] 1965 Unknown [id number] 1965 Unknown [id number] 2.16.84 [id number] 1965 Unknown [id number] 2.16.8 [id number] 1965 Unknown [id number] 2.16.8 [id number] 1959 Unknown [id number] Social History Date Type Detail Facility Start: 03-28-2023 Tobacco smoking status Never s moked tobacco (finding) General [facility] Tobacco smoking status Never Gener al Surgery [facility] Sex Assigned At Male [facility] Medical Equipment Procedure Code Equipment Code Equipment Origin al Text Equipment Identifier Dates SHOULDER ARTHROS COPY W/ POSSIBLE REPAIR Checo Packer DO 01/18/21 Non Biological Shoulder L [id number] [facility] Start: 01-18-2021 Functional Status Date Assessment Result Facility 03-28-2023 Functional Status N/A [facility] Progress note 09-19-2023 Note Date & Type Note Facility 09-19-2023 Note [facility] Subjective Leander Ortiz is a 57 [...] fecal occult blood test Essential hypertension Diabetes ([facility]/HCC) Arthritis Anxiety Family History Problem Relation Name [...] 04/04/2023 57 Atri (more content not included)... [facility] Progress note 05-08-2023 Note Date & Type Note Facility 05-08-2023 Note Patient here for fol low up heart cath on 04/04/[address] Sena. Denies chest pain and SOB. Doing ok cardiac ahumada he says. Review of Systems Cardiovascular: Positive for leg swelling (wears compression stockings). Musculoskeletal: Positive for neck pain. Neurological: Positive for headaches. All other systems reviewed and are negative. [facility] Progress note 08-08-2023 Note Date & Type Note Facility 05-08-2023 [...] with normal sy (more content not included)... [facility] Clinical Note 04-04-2023 Note Date & Type Note Facility 04-04-2023 Note Patient: Leander wolff Procedure Information Date/Time: 04/04/23 1030 Procedure: Coronary angiography (Left) Location: [facility] DIFFUSER OPERATOR 3 / [facility] (Cath) Providers: Donald Sena MD Clinical information reviewed: Allergies Meds Physical Exam Airway Mallampati: IV TM distance: >3 FB Neck ROM: full Cardiovascular Rhythm: regular Rate: normal Dental Pulmonary Abdominal Anesthesia Plan ASA 3 other (Conscious sedation) Anesthetic plan and risks discussed with patient. Use of blood products discussed with patient who consented to blood products. Additional Equipment Requests [facility] Clinical Note 03-28-2023 Note Date & Type [...] week, 01/11/2021 Employment/School Employed, Work/School description: [employer] 01/11/2021 Substance Abuse - Denies Substance Abuse, 01/11/2021 Tobacco - Denies Toba (more content not included)... [facility] Comment on above: Result Comment: Elec [...] for 1 day, Disp: , Rfl: HYDROcodone-acetaminophen ([place]) 5-325 mg tablet, Take by mouth., Disp: [...] visit: Cardiovascular stre (more content not included)... [facility] Progress note 03-14-2023 Note Date & Type Note Facility 03-14-2023 Note Review of Systems Respiratory: Positive for shortness of breath. Neurological: Positive for headaches. All other systems reviewed and are negative. [facility] Evaluation + Plan note Note Date & Type Note Facility Evaluation + Plan note No data available for this section [facility] Discharge instructions Note Date & Type Note Facility Hospital Discharge instructions No data available for this section [facility] Progress note Note Date & Type Note Facility Progress note No data available for this section [facility] Summary Purpose Family History No Family History Records FoundNo Family History Records FoundNo Family History Records Found Advance Directives No Advanced Directives Records FoundNo Advanced Directives Records FoundNo Advanced Directives Records Found Additional Source Comments (unrecognized sect ion and content) No Status Records FoundNo Status Records FoundNo Status Records Found INFORMATION SOURCE (unrecogn ized section and content) DATE CREATED AUTHOR 03/12/2023 Sohail Lu [facility] DATE CREATED AUTHOR AUTHOR'S ORGANIZ ATION 05/11/2023 Thierry Mckeon [facility] DATE CREATED AUTHOR AUTHOR'S ORGANIZ ATION 09/20/2023 [facility] Patient Care team informatio n (unrecognized section and content) Personnel Name: Anamaria Mata MD Address: Address: [address] [place] [address] FOR RECORDS PERTAINING TO PATIENTS WHO ARE [...] BE BASED ON THE PRIMARY CLINICAL RECORDS. [facility] [employer] provides no warranty or guarantee of the accuracy or completeness of information in this document.
[2024-04-02 08:38] LABS: Basophils Absolute Auto 0.1 10^3/uL (0.0-0.1); Basophils Percent Auto 0.9 % (0.2-2.0); Eosinophils Absolute Auto 0.7 10^3/uL (0.0-0.7); Eosinophils Percent Auto 5.8 % (0.9-7.0); Immature Granulocytes Abs Auto 0.01 10^3/uL (0.00-0.03); Immature Granulocytes Pct Auto 0.1 % (0.0-0.5); Lymphocytes Absolute Auto 4.4 10^3/uL (1.2-3.8); Lymphocytes Percent Auto 38.9 % (20.5-60.0); Mean Corpuscular HGB Conc 33.3 g/dL (29.9-35.2); Mean Corpuscular Volume 93.1 fL (80.0-94.0); Mean Platelet Volume 11.8 fL (9.5-13.5); Monocytes Absolute Auto 0.8 10^3/uL (0.3-0.8); Monocytes Percent Auto 6.8 % (1.7-12.0); Neutrophils Absolute Auto 5.3 10^3/uL (1.4-6.5); Neutrophils Percent Auto 47.5 % (43.0-75.0); Platelet Count 235 10^3/uL (150-450); Red Blood Count 4.51 10^6/uL (4.70-6.10); White Blood Count 11.2 10^3/uL (4.0-11.0)
[2024-04-02 08:58] LABS: Estimated Average Glucose 114 mg/dL; Glycohemoglobin A1C 5.6 % (4.5-6.2)
[2024-04-02 10:08] LABS: Alanine Aminotransferase 43 U/L (16-63); Albumin Globulin Ratio 1.3; Albumin Level 4.1 g/dL (3.4-5.0); Alkaline Phosphatase 110 U/L (46-116); Anion Gap 14.9; Aspartate Amino Transferase 34 U/L (15-37); BUN Creatinine Ratio 11.1; Bilirubin Total 0.8 mg/dL (0.2-1.0); Calcium 8.8 mg/dL (8.5-10.1); Carbon Dioxide 27.8 mmol/L (21.0-32.0); Chloride 102 mmol/L (98-107); Chol HDL Ratio 2.4; Cholesterol 117 mg/dL (<=200); Estimated GFR (African America >60 (>=60); Estimated GFR (Non-African Ame >60 (>=60); Globulin 3.1 g/dL; Glucose 76 mg/dL (74-106); HDL Cholesterol 48 mg/dL (40-60); LDL Cholesterol Calculated 47.4 mg/dL; Potassium 3.7 mmol/L (3.5-5.1); Sodium 141 mmol/L (136-145); Thyroid Stimulating Hormone 3.884 uIU/mL (0.358-3.740); Total Protein 7.2 g/dL (6.4-8.2); Triglycerides 108 mg/dL (<=150); VLDL CHOLESTEROL 21.6 mg/dL
[2024-04-02 10:33] LABS: Free T4 1.03 ng/dL (0.76-1.46)
[2024-04-02 10:44] LABS: Prostate Specific Antigen Scrn 2.52 ng/mL (<=4.00)
== END 2024-04-02 07:25 | disposition home or self-care (01) ==
LOC: LAB 07:25
PROVIDERS: PCP Family Medicine; Visit Provider Family Medicine
DX: Z00.00 Encounter for general adult medical examination without abnormal findings (principal)
CPT/HCPCS: 36415; 80053; 80061; 83036; 84439; 84443; 85025; G0103

== ENCOUNTER 2025-04-24 08:51 | Outpatient (OUT) | payer BC, SELFPAY ==
--- OUTSIDE RECORDS SUMMARY | 2025-04-13 11:39 | XMS_ITS ---
Author Organization The [facility] in [place] Address [address] [place] [address] Care Team Providers Care Insurance Territory Manager Name Role Phone Ravinder Mata Primary Care Provider REASON FOR VISIT rf Metformin Medications Medication SIG (Take, Route, Fr equency, Duration) Notes Start Date End Date Status metFORMIN HCl 500 MG take 1 tablet by mo uth twice a day 30 for 30 Active Encounters Encounter Location Date Provider Diagnosis [facility] [address] [place] [address] 04/13/2025 Ravinder Mata Plan Of Treatment Medication Medication Name Sig Start Date Stop Date Notes metFORMIN HCl 500 MG take 1 tablet by mo uth twice a day 30 for 30 Progress Notes * Leander ORTIZ FDOB:[birth year] (59 yo M)Acc No.[id number]:04/13/2025 Patient: Harpreet Leander JANE :1965 A ge:59 Y S ex:Male Address:[place], [address] * Refills Refill metFORMIN HCl Tablet, 500 MG, 60 Tablet, take 1 tablet by mouth twice a day 30, 30, Refills=11 * true * Date: Generated for Nando acosta/Raegan/eTransmitting on: 0 04/24/2025 08:55 AM EDT
--- OUTSIDE RECORDS SUMMARY | 2025-04-21 04:15 | XMS_ITS ---
Author Organization The [facility] in [place] Address [address] [place] [address] Care Team Providers Care Building Services Engineer Name Role Phone Ravinder Mata Primary Care Provider Allergies Allergen (clinical drug ingredient) Drug/Non Drug Allergy documented on EMR Reaction Allergy Type Onset Date Status ciprofloxacin Cipro unsure Drug Allergy Act sheryl Penicillin anaphylaxis Drug Allergy Acti ve REASON FOR VISIT yearly check up Medications Medication SIG (Take, Route, Frequency, Duration) Notes Start Date End Date Status Atorvastatin Calcium 40 MG take 1 tablet by mouth every morning Oral for 90 Days Active Aspirin 81 81 MG 1 tablet Orally Once a day Active Allopurinol 300 MG take 1 tablet by lorenzo th once daily for 30 Active Blood Glucose Monitor System w/Device Use monitor to check glucose twice daily DX E11.65 for 365 days Active Pantoprazole Sodium 40 MG take 1 tablet by mouth once daily for 30 Active Nitroglycerin 0.[address] 1 tablet unde r the tongue if needed every 5 minutes for lluvia... (REFER TO PRESCRIPTION NOTES). Sublingual for 15 Days PRN Active Mounjaro 10 MG/0.5ML 10 mg Subcutaneous weekly Active TrueTrack Test Strips Use 1 strip to nic t blood sugar once daily Dx:E11.9 for 100 days 02/28/2024 Active metFORMIN HCl 500 MG take 1 tablet by mo [facility] twice a day 30 for 30 Active Lancets 30G - Use 1 lancet twice d aily to monitor glucose DX E11.65 for 90 days Active Glimepiride 4 MG 1/2 tablet with wendi kfast or the first main meal of the day Orally Once a day for 90 days 12/11/2023 Active Colchicine 0.6 MG 1 tablet Orally Robert y for 30 days Active Carvedilol 12.5 MG 1 tablet with food O rally Twice a day for 90 days Active Blood Glucose Test Strip Use 1 strip twi ce daily to monitor glucose DX E11.65 for 90 days Active Social History Tobacco Use: Social History Observation Description Date Details (start date - stop date) Never Smoker NA - NA Tobacco Use/Smoking Question Answer Notes Patient is a nonsmoker AUDIT-C (Standard) Question Answer Notes Did you have a drink contain ing alcohol in the past year? Yes How often did you have a dri nk containing alcohol in the past year? Never (0 point) How many drinks did you have on a typical day when you were drinking in the past year? 3 or 4 drinks (1 point) How often did you have six o r more drinks on one occasion in the past year? 2 to 4 times a month (2 points) Points 3 Interpretation Negative Encounters Encounter Location Date Provider Diagnosis [facility] [address] [place] [address] 04/21/2025 Ravinder Mata Plan Of Treatment No Information Progress Notes * Leander ORTIZ FDOB:[birth year] (59 yo M)Acc No.[id number]:04/21/2025 UNLOCKED PROGRESS NOTE Progress Note Patient: Leander HERRERA Provider: Angel Mata ([facility])MD :1965 A ge:59 Y S ex:Male Date:04/21/2025 Address:[address] [place], [place] [id number] Check In:08:08 AM EST Subjective: * Chief Complaints: * 1 . Yearly check up. * HPI: D epression Screening: PHQ-2 (2015 Edition) L ittle interest or pleasure in doing things??Not at all F eeling down, depressed, or hopeless? N ot at all T otal Score 0 * Medical History: C hronic gout, Seborrheic keratosis, COVID-19 virus infection, Fever, Cough, unspecified, Acute gastroenteritis, Edema, unspecified, Complete rotator cuff tear or rupture of left shoulder, not specified as traumatic, Degenerative joint disease of acromioclavicular joint, Well adult, Gout, Sleep apnea, Anxiety, Osteoarthritis. * Surgical History: R otator Cuff Surgery- Left , Knee Surgery- Right , Oral D & C , Angioplasty . * Hospitalization/Major Diagno stic Procedure: D enies Past Hospitalization. * Family History: F ather: 74 yrs, Lung cancer, diagnosed with Other malignant neoplasm of unspecified site. M other: alive 76 yrs. S ister(s): alive. D ahmeter(s): alive. 1 sister(s) - healthy. 1 daughter(s) - healthy. . * Social History: T obacco Use: T obacco Use/Smoking P atient is a n onsmoker D rug/Alcohol: A CHADWICK-C (Standard) D id you have a drink containing alcohol in the past year? Y es H ow often did you have a drink containing alcohol in the past year? N ever (0 point) H ow many drinks did you have on a typical day when you were drinking in the past year? 3 or 4 drinks (1 point) H ow often did you have six or more drinks on one occasion in the past year? 2 to 4 times a month (2 points) P oints 3 I nterpretation N egative * Medications: T aking Allopurinol 300 MG Tablet take 1 tablet by mouth once daily , Taking Aspirin 81(Aspirin) 81 MG Tablet Delayed Release 1 tablet Orally Once a day , Taking Atorvastatin Calcium 40 MG Tablet take 1 tablet by mouth every morning Oral , Taking Blood Glucose Monitor System w/Device Kit Use monitor to check glucose twice daily DX E11.65 , Taking Blood Glucose Test Strip Use 1 strip twice daily to monitor glucose DX E11.65 , Taking Carvedilol 12.5 MG Tablet 1 tablet with food Orally Twice a day , Taking Colchicine 0.6 MG Tablet 1 tablet Orally Daily , Taking Glimepiride 4 MG Tablet 1/2 tablet with breakfast or the first main meal of the day Orally Once a day , Taking Lancets 30G - Miscellaneous Use 1 lancet twice daily to monitor glucose DX E11.65 , Taking metFORMIN HCl 500 MG Tablet take 1 tablet by mouth twice a day 30 , Taking Mounjaro(Tirzepatide) 10 MG/0.5ML Solution Pen-injector 10 mg Subcutaneous weekly , Taking Nitroglycerin 0.[address]ual [address] 1 tablet under the tongue if needed every 5 minutes for lluvia... (REFER TO PRESCRIPTION NOTES). Sublingual , Notes to Pharmacist: PRN, Taking Pantoprazole Sodium 40 MG Tablet Delayed Release take 1 tablet by mouth once daily , Taking TrueTrack Test Strips Use 1 strip to test blood sugar once daily Dx:E11.9 , Discontinued Triamcinolone Acetonide 0.1 % Cream 1 application Externally Twice a day , Notes to Pharmacist: PRN, Discontinued Ventolin HFA(Albuterol Sulfate HFA) 108 (90 Base) MCG/ACT Aerosol Solution 1 puff as needed Inhalation every 4 hrs , Notes to Pharmacist: PRN, Medication List reviewed and reconciled with the patient * Allergies: P enicillin: anaphylaxis - Allergy - Criticality High, Cipro: unsure. Objective: * Vitals: Assessment: Plan: * Treatment: * Preventive Medicine: Screenings/Counseling: B MT ACTION PLAN Above Normal BMI Follow-up D ietary management education, guidance, and counseling * * Electronic signature of Ravinder Mata MD, [id number] on 04/24/2025 at 08:55 AM EDT Sign off status: Pending Visit Status: C ANC (Cancelled) * Provider: Angel Mata ([facility])MD Date: 0 04/21/2025 Generated for Nando acosta/Raegan/Lucilleitting on: 0 04/24/2025 08:55 AM EDT History and Physical Notes * HPI (History of Present Illness) Category Sub-Category Detail Notes Category Not es Depression Screening PHQ-2 (2015 Edition) Little interest or pleasure in doing things?: Not at all Feeling down, depressed, or hopeless?: N ot at all Total Score: 0
--- OUTSIDE RECORDS SUMMARY | 2025-04-24 04:30 | XMS_ITS ---
Author Organization The [facility] [place] Address [address] [place] [address] Care Team Providers Care Net Architect Name Role Phone Ravinder Mata Primary Care Provider Allergies Allergen (clinical drug ingredient) Drug/Non Drug Allergy documented on EMR Reaction Allergy Type Onset Date Status ciprofloxacin Cipro unsure Drug Allergy Act sheryl Penicillin anaphylaxis Drug Allergy Acti ve REASON FOR VISIT Yearly Medications Medication SIG (Take, Route, Frequency, Duration) Notes Start Date End Date Status TrueTrack Test Strips Use 1 strip to nic t blood sugar once daily Dx:E11.9 for 100 days 02/28/2024 Active Atorvastatin Calcium 40 MG take 1 tablet by mouth every morning Oral for 90 Days Active Aspirin 81 81 MG 1 tablet Orally Once a day Active Pantoprazole Sodium 40 MG take 1 tablet by mouth once daily for 30 Active Allopurinol 300 MG take 1 tablet by lorenzo once daily for 30 Active Mounjaro 15 MG/0.5ML 15 mg Subcutaneous weekly Active Nitroglycerin 0.[address] 1 tablet unde r the tongue if needed every 5 minutes for lluvia... (REFER TO PRESCRIPTION NOTES). Sublingual for 15 Days PRN Active metFORMIN HCl 500 MG take 1 tablet by mo [facility] twice a day 30 for 30 [...] glucose DX E11.65 for 90 days Active Blood Glucose Monitor System w/Device Use monitor to check glucose twice daily DX E11.65 for 365 days Active Social History Tobacco Use: Social History Observation Description Date Details (start date - stop date) Never Smoker NA - NA Tobacco Use/Smoking Question Answer Notes Patient is a nonsmoker Vital Signs Weight 289.2 lbs 04/24/2025 Height 69 in 04/24/2025 Blood pressure systolic 144 mm Hg 04/24/20 25 Blood pressure diastolic 88 mm Hg 025 BMI 42.7 kg/m2 04/24/2025 Encounters Encounter Location Date Provider Diagnosis [facility] [address] [place] [address] 04/24/2025 Ravinder Mata Well adult Z00.0 0 Assessments Encounter Date Diagnosis (ICD Code) Assessment Notes Treatment Notes Treatment Clinical Notes Section Notes 04/24/2025 Well adult (ICD-10 - Z00.00) Plan Of Treatment Medication Medication Name Sig Start Date Stop Date Notes Mounjaro 15 MG/0.5ML 15 mg Subcutaneous weekly 10/24/2023 Pending Test Test Name Order Date HEMOGLOBIN A1C (GLYCO) 04/24/2025 LIPID PANEL (CHOL/TRIG/HDL/LDL) 04/24/20 URIC ACID 04/24/2025 THYROID PANEL (T4/TSH/FREE T3) PSA, SCREENING 04/24/2025 CMP (COMP MET SCOTT) w/eGFR CKD-EPI 2024 CBC WITH DIFF 04/24/2025 Progress Notes * Leander LEE FDOB:[birth year] (59 yo M)Acc No.[id number]:04/24/2025 UNLOCKED PROGRESS NOTE Progress Note Patient: Leander HERRERA Provider: Angel Mata ([facility])MD :1965 A ge:59 Y S ex:Male Date:04/24/2025 [facility] [facility] Check In:08:19 AM ESTCheck O ut:08:43 AM EST Subjective: * Chief Complaints: * 1 . Yearly. * HPI: G eneral: DM - all less than 100 - on mounjaro - at a plateau - lea adulst CHol - taking meds - check on labs HTN - stabel iwht meds GERD - stabel on meds. * ROS: E ENT: hearing changes d enies. v isual changes d enies.?non-healing mouth sores d enies. s wollen glands or neck lumps d enies. h oarseness d enies. s ore throat d enies. d ifficulty swallowing d enies. n ose bleeds d enies. n julissa congestion d enies. e ar ache d enies. e ar discharge?denies. r inging in ears d enies. l ight sensitivity d enies. e ye pain d enies. b lurring d enies. e ye irritation d enies. d ouble vision d enies.?vision loss d enies. G eneral/Constitutional: Sweats: D enies. F atigue d enies. S leep problems d enies. A norexia d enies. M alaise d enies. W eight loss d enies.?Fatigue or Weakness d enies. F ever or Chills d enies. C ardiovascular: Shortness of Breath w/lying flat d enies. L ightheadedness/dizziness d enies. C hest tightness/ heavy pressure d enies. S welling of legs, ankles, or feet d enies. W aking up with shortness of breath d enies. C hest pain denies. P alpitations d enies. W eight gain d enies. R espiratory: Chronic or frequent cough d enies. C oughing up blood?denies. D ifficulty breathing d enies. P roductive cough d enies. S noring?denies. S hortness of breath that awakens from sleep (PND) d enies. C hest pain d enies. S putum production d enies. W heezing d enies. M usculoskeletal: Joint pain d enies. J oint Fluid d enies. B ack pain d enies. K nee pain d enies. N héctor pain d enies. J oint Stiffness d enies. M uscle cramps d enies. W eakness of muscles d enies. A rthritis d enies. M uscle aches d enies. P ain in shoulder(s) d enies. S wollen joints d enies. * Medical History: C hronic gout, Seborrheic [...] Use/Smoking P atient is a n onsmoker * Medications: T aking Allopurinol 300 MG [...] test blood sugar once daily Dx:E11.9 , Medication List reviewed and reconciled with the patient * Allergies: P enicillin: anaphylaxis - Allergy - Criticality High, Cipro: unsure. Objective: * Vitals: W t:289.2lbs, Ht: 69 in, BP:144/88mm Hg, BMI:42.7Index, Ht-cm: 175.26 cm, Wt-k.18 kg. * Examination: P hysical Exam: GENERAL: w ell developed, well nourished, in no acute distress. HEAD: n ormocephalic/atraumatic. EYES: p upils equal, round and reactive to light, conjunctivae and sclerae normal. EARS: n o deformity or lesion of external ear, canals and TM appear normal bilaterally, TM's intact, not inflamed with normal light reflex, hearing grossly normal to conversational speech. NOSE: n o deformity, discharge, inflammation, or lesions.? MOUTH: m ucous membranes moist, normal oropharynx and posterior pharynx without lesions or exudates, tongue normal, dentition normal. NECK: n héctor supple, no masses or palpable cervical nodes, trachea midline, thyroid without nodules, masses, tenderness, or enlargement. CHEST: n o chest wall deformity, no chest wall tenderness.? LUNGS: n ormal respiratory effort and clear to auscultation, no wheezes, rales, or rhonchi, good air exchange. CARDIO: r egular rate and rhythm, normal S1 and S2, nor murmur, rub, or gallop. PULSES: n ormal capillary refill. ABDOMEN: s oft, non-distended, non-tender, no masses. MUSCULOSKELETAL: n o deformity or scoliosis noted, normal range of motion, joints normal, no erythema, edema, effusion, or ecchymosis. EXTREMITY: n o clubbing, cyanosis, edema, or deformity with normal ROM in both upper and lower bilateral extremities. NEUROLOGIC: g rossly normal. SKIN: n o rashes, ulcerations, or suspicious lesions. LYMPH NODES: n o cervical adenopathy, nodes normal. MENTAL STATUS: a lert and oriented x3, normal mood and affect. Assessment: * Assessment: 1. W ell adult - Z00.00 (Primary) Plan: * Treatment: * Preventive Medicine: Screenings/Counseling: B NH ACTION PLAN Above Normal BMI Follow-up D ietary management education, guidance, and counseling * * Electronic signature of Ravinder Mata MD, [id number] on 04/24/2025 at 08:55 AM EDT Sign off status: Pending Visit Status: C HK (Check Out) * Provider: Angel Mata ([facility])MD Date: 04/24/2025 Generated for Printi ng/Faxing/eTransmitting on: 04/24/2025 08:55 AM EDT History and Physical Notes * HPI (History of Present Illness) Category Sub-Category Detail Notes Category Not es General DM - all less than 100 - on mounjaro - at a plateau - lea adulst CHol - taking meds - check on labs HTN - stabel iwht meds GERD - stabel on meds Examination Category Sub-Category Detail Notes Category Not es Physical Exam GENERAL: well developed, well nourished, in no acute distress HEAD: normocephalic/atraum atic EYES: pupils equal, round and reactive to light, conjunctivae and sclerae normal EARS: no deformity or lesi on of external ear, canals and TM appear normal bilaterally, TM's intact, not inflamed with normal light reflex, hearing grossly normal to conversational speech NOSE: no deformity, discha rge, inflammation, or lesions MOUTH: mucous membranes poli st, normal oropharynx and posterior pharynx without lesions or exudates, tongue normal, dentition normal NECK: neck supple, no mass es or palpable cervical nodes, trachea midline, thyroid without nodules, masses, tenderness, or enlargement CHEST: no chest wall deform ity, no chest wall tenderness LUNGS: normal respiratory e ffort and clear to auscultation, no wheezes, rales, or rhonchi, good air exchange CARDIO: regular rate and rhy thm, normal S1 and S2, nor murmur, rub, or gallop PULSES: normal capillary ref ill ABDOMEN: soft, non-distended, non-tender, no masses RECTAL: MUSCULOSKELETAL: no deformity or scol iosis noted, normal range of motion, joints normal, no erythema, edema, effusion, or ecchymosis EXTREMITY: no clubbing, cyanosi s, edema, or deformity with normal ROM in both upper and lower bilateral extremities NEUROLOGIC: grossly normal SKIN: no rashes, ulceratio ns, or suspicious lesions LYMPH NODES: no cervical adenopat hy, nodes normal MENTAL STATUS: alert and oriented x 3, normal mood and affect
--- OUTSIDE RECORDS SUMMARY | 2025-04-24 08:54 | XMS_ITS | Clinical Summary ---
Author Organization [facility] Address [address] [place] [address] Care Team Providers Care Hat Measurer Name Role Phone Unavailable Primary Care Provider Unavailabl e Social History Tobacco Use Types Packs/Day Years Used Date Smoking Tobacco: Never Assessed Sex and Gender Information Value Date Recorded Sex Assigned at Not on file Legal Sex Male 6:46 PM EDT Gender Identity Not on file Sexual Orientation Not on file Last Filed Vital Signs Vital Sign Reading Time Taken Comments Blood Pressure - - Pulse - - Temperature - - Respiratory Rate - - Oxygen Saturation - - Inhaled Oxygen Concentration - - Weight 136 kg (300 lb) 05/16/2021 12:00 PM EDT Height 172.7 cm (5' 8 ) 05/16/2021 12:00 PM EDT Body Mass Index 45.61 05/16/2021 12:00 PM EDT Plan of Treatment Not on file
--- OUTSIDE RECORDS SUMMARY | 2025-04-24 08:55 | XMS_ITS | Patient Health Record ---
Author Organization [facility] in [place] Address [address] [place] [address] Care Team Providers Care Legal Instructor Name Role Phone Ravinder Mata Primary Care Provider [phone] Allergies Allergen (clinical drug ingredient) Drug/Non Drug Allergy documented on EMR Reaction Allergy Type Onset Date Status ciprofloxacin Cipro unsure Drug Allergy Act sheryl Penicillin anaphylaxis Drug Allergy Acti ve Reason For Referral No Information Medications Medication SIG (Take, Route, Frequency, Duration) Notes Start Date End Date Status Atorvastatin Calcium 40 MG take 1 tablet by mouth every morning Oral for 90 Days Active Mounjaro 15 MG/0.5ML 15 mg Subcutaneous weekly Active Aspirin 81 81 MG 1 tablet Orally Once a day Active Pantoprazole Sodium 40 MG take 1 tablet by mouth once daily for 30 Active Allopurinol 300 MG take 1 tablet by lorenzo th once daily for 30 Active Nitroglycerin 0.4 [...] daily DX E11.65 for 365 days Active TrueTrack Test Strips Use 1 strip to nic t blood sugar once daily Dx:E11.9 for 100 days 02/28/2024 Active Social History Tobacco Use: Social History Observation Description Date Details (start date - stop date) Never Smoker NA - NA Tobacco Use/Smoking Question Answer Notes Patient is a nonsmoker Problems Problem Type SNOMED Code ICD Code Onset Dates Problem Status W/U Status Risk Notes Problem [id number] Benign neoplasm, unspecified site (D36.9) Active confirmed Problem Full thickness rotator cuff tear (294696901) Complete rotator cuff tear or rupture of left shoulder, not specified as traumatic (M75.122) Active confirmed Problem 07357524 Other fecal abnormalities (R19.5) Active confirmed Problem Chest pain (97854834) Chest pain (R07.9) Active confirmed Problem Osteoarthritis (361574254) Osteoarthritis (M19.90) Active confirmed Problem Anxiety (71732464) Anxiety (F41.9) Active confi rmed Problem Gout (51054568) Gout (M10.9) Active confirmed Problem Sleep apnea (84183763) Sleep apnea (G47.30) Active confirmed Problem Edema (37061740) Edema, unspecif ied (R60.9) Active confirmed Problem Well adult (583355023) Well adult (Z00.00) Active confirmed Problem Fever (169511917) Fever (R50.9) Active confirme d Problem Seborrheic keratosis (53599915) Seborrheic keratosis (L82.1) Active confirmed Problem Diabetes mellitus uncontrolled (779595223) Uncontrolled diabetes mellitus (E11.65) Active confirmed Problem Acute gastroenteritis (23062731) Acute gastroenteritis (K52.9) Active confirmed Problem Tick bite (10888007) Tick bite (W57.XXXA) Active confirmed Problem Chronic gouty arthritis (06600025) Chronic gout (M1A.9XX0) Active confirmed Problem Degenerative joint disease of acromioclavicular joint (786676093) Degenerative joint disease of acromioclavicular joint (M19.019) Active confirmed Problem Disease caused by Severe acute respiratory syndrome coronavirus 2 (disorder) (017155150) COVID-19 virus infection (U07.1) Active confirmed Problem Cough (finding) (64428902) Cough, unspecified (R05.9) Active confirmed Vital Signs Blood pressure diastolic 88 mm Hg 04/24/2025 Height 69 in 04/24/2025 Blood pressure systolic 144 mm Hg 04/24/2025 Weight 289.2 lbs 04/24/2025 BMI 42.7 kg/m2 04/24/2025 Encounters Encounter Location Date Provider Diagnosis [facility] [address] [place] [address] 05/29/2024 Ravinder Mata Uncontrolled diabete s mellitus E11.65 [facility] [address] [place] [address] 08/11/2024 Ravinder Hudsony [facility] [address] [place] [address] 08/19/2024 Ravinder Hudsony [facility] [address] [place] [address] 12/23/2024 Ravinder Mata Well adult Z00.00 [facility] [address] [place] [address] 02/04/2025 Ravinder Hudsony [facility] [address] [place] [address] 04/13/2025 Ravinder Hudsony [facility] [address] [place] [address] 05/05/2024 Ravinder Tristany Uncontrolled diabete s mellitus E11.65 [facility] [address] [place] [id number] 04/24/2025 Ravinder Hudsony Well adult Z00.00 Assessments Encounter Date Diagnosis (ICD Code) Assessment Notes Treatment Notes Treatment Clinical Notes Section Notes 04/24/2025 Well adult (ICD-10 - Z00.00) 05/05/2024 Uncontrolled diabetes mellitus (ICD-10 - E11.65) 05/29/2024 Uncontrolled diabetes mellitus (ICD-10 - E11.65) 12/23/2024 Well adult (ICD-10 - Z00.00) Plan Of Treatment Pending Test Test Name Order Date CMP (COMPLETE METABOLIC PANEL) 3 HEMOGLOBIN A1C (GLYCO) 02/13/2023 HEMOGLOBIN A1C (GLYCO) 04/24/2025 INSULIN, TOTAL 02/13/2023 LIPID PANEL (CHOL/TRIG/HDL/LDL) 04/24/20 25 LIPID PANEL (CHOL/TRIG/HDL/LDL) 02/14/20 23 CBC WITH DIFF 02/13/2023 PSA, PROSTATE-SPECIFIC ANTIGEN 3 URIC ACID 02/13/2023 URIC ACID 04/24/2025 CARDIO Stress Test - Lexiscan Nuclear Stress Test Lexiscan Persantine (Lexisca n Stress Test) 02/13/2023 STOOL OCCULT BLOOD 02/13/2023 THYROID PROFILE WITH TSH 03/31/2024 ECHOCARDIO M or 2D COMPLETE 02/13/2023 THYROID PANEL (T4/TSH/FREE T3) 4 THYROID PANEL (T4/TSH/FREE T3) 3 THYROID PANEL (T4/TSH/FREE T3) 5 PSA, SCREENING 04/24/2025 PSA, SCREENING 03/31/2024 Lipid Panel 03/31/2024 CMP (COMP MET SCOTT) w/eGFR CKD-EPI 2024 CBC WITH DIFF 04/24/2025 Insurance Providers Payer Name Payer Address Payer Phone Subscriber Number Group Number Insured Name Patient Relationship to Insured Coverage Start Date Coverage End Date [employer] [address] [place] [address] [id number] Leander Ortiz Self - patient is the insured 9 Medical (General) History Medical History History ICD Code Chronic gout M1A.9XX0 Seborrheic keratosis L82.1 COVID-19 virus infection U07.1 Fever R50.9 Cough, unspecified R05.9 Acute gastroenteritis K52.9 Edema, unspecified R60.9 Complete rotator cuff tear o r rupture of left shoulder, not specified as traumatic M75.122 Degenerative joint disease of acromiocla vicular joint M19.019 Well adult Z00.00 Gout M10.9 Sleep apnea G47.30 Anxiety F41.9 Osteoarthritis M19.90 Surgical History Surgery Date(Month/Year) Angioplasty Oral D & C Knee Surgery- Right Rotator Cuff Surgery- Left
--- OUTSIDE RECORDS SUMMARY | 2025-04-24 09:15 | XMS_ITS | CCD ---
Author Organization [facility] Care Team Providers Care Business Intelligence Developer Name Role Phone HANNAH ., DR CONRAD Primary Care Unavailable MARKER ., DR DOLL Attending Unavailable MARKER ., DR DOLL Consulting Unavailable MARKER ., DR DOLL Admitting Unavailable JASKARAN, WENDY Consulting Unavailable EDVIN JAMES Attending Unavailable EDVIN JAMES Consulting Unavailable EDVIN JAMES Admitting Unavailable HOY ., DR CONRAD Primary Care Unavailable EDVIN JAMES Consulting Unavailable EDVIN JAMES Admitting Unavailable HANNAH ., DR CONRAD Primary Care Unavailable EDVIN JAMES Attending Unavailable Anamaria Mata Primary Care Physician [phone] Horacio SARABIA Attending Unavailable Anamaria Mata Referring Unavailable Horacio SARABIA Attending Unavailable JUANPABLO SINGH Attending Unavailable Allergies Allergy Classification Reported Allergen(s) Allergy Type Date of Onset Reaction(s) Facility (2 sources) Ciprofloxacin; Translations: [Cipro] Drug Allergy [address] [facility] Repository (2 sources) Clindamycin; Translations: [clindamycin] Drug Allergy [address] [facility] Repository (3 sources) Penicillin; Translations: [penicillin] Drug Allergy [address] [facility] Repository (1 source) Penicillin; Translations: [PENICILLIN G] Drug Allergy 3 [facility] Repository Medications Current Medications Medication Drug [...] 0 Start Date: 03/07/23 Status: Ordered Problems Problem Classification Problem Date Documented Da te Episodic/Chronic Anxiety disorders (1 source) Anxiety 03-07-2023 Chronic Coronary atherosclerosis and other heart disease (2 sources) Atherosclerotic heart disease of [place] coronary artery without angina pectoris; Translations: [Atherosclerotic heart disease of [place] coronary artery without angina pectoris] Onset: 01-08-2025 Chronic Diabetes mellitus without complication (1 source) Diabetes mellitus 03-07-2023 Chronic Diabetes mellitus without complication (1 source) Other abnormal glucose; Translations: [OTHER ABNORMAL GLUCOSE] Onset: 02-20-2023 Episodic Disorders of lipid metabolism (2 sources) Mixed hyperlipidemia; Translations: [Mixed hyperlipidemia] Onset: 01-08-2025 Chronic Essential hypertension (4 sources) Essential (primary) hypertension; Translations: [Essential hypertension] Onset: 02-14-2023 03-07-2023 Chronic Gout and other crystal arthropathies (2 sources) Gout, unspecified; Translations: [Gout] Onset: 02-14-2023 01-11-2021 Chronic Nonspecific chest pain (4 sources) Other chest pain; Translations: [OTHER CHEST PAIN] Onset: 02-20-2023 Episodic Osteoarthritis (1 source) Arthritis 01-11-2021 Chronic Other aftercare (1 source) Other terminal operations supervisor (current) drug therapy; Translations: [OTH ORAL PATHOLOGIST CURRENT DRUG THERAPY] Onset: 02-14-2023 Episodic Other aftercare (1 source) intermediate project manager (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) use of oral hypoglycemic drugs; Translations: [MCFP USE ORAL HYPOGLYCEMIC DX] Onset: 02-14-2023 Episodic [...] disorders (1 source) Morbid obesity 03-28-2023 Chronic Other screening for suspected conditions (not mental disorders or infectious disease) (4 sources) Encounter for screening for malignant neoplasm of prostate; Translations: [Encounter for screening for malignant neoplasm of rectum] Onset: 02-20-2023 Episodic Residual codes; unclassified (1 source) Sleep apnea 03-07-2023 Chronic Residual codes; unclassified (3 sources) Flushing; Translations: [FLUSHING] Onset: 02-13-2023 Episodic Unclassified (1 source) CONTACT W/AND (SUSP) EXPOS COVID-19; Translations: [CONTACT W/AND (SUSP) EXPOS COVID-19] Onset: 02-14-2023 Unclassified (1 source) PERSONAL HISTORY OF COVID-19; Translations: [PERSONAL HISTORY OF COVID-19] Onset: 02-14-2023 Results Test Name Value Interpretation Reference Range Facility Office Visiton 01-08-2025 Follow-up visit [id number] Leander Ortiz 1965 M Date Provider Department Center 01/08/2025 JUANPABLO PINEDA [facility] Family History Problem Relation Age of Onset No Known Problems Mother Cancer Father Family Status - Relation Status Age at Mother Alive Father Sister Alive Level of Service:88104 SC OFFICE/OUTPATIENT ESTABLISHED LOW MDM 20 MIN Reason for Visit and Comments: Coronary Artery Disease [187] Hypertension [098383] Hyperlipidemia [182] Normal [facility] Refillon 09-22-2024 Refill [id number] Leander Ortiz Mayo 1965 M Date Provider Department Center 09/22/2024 [facility] Ernesto Lu Family History Problem Relation Age of Onset No Known Problems Mother No Known Problems Father Family Status - Relation Status Age at Mother Father Reason for Visit and Comments: Med Refill [217513] Normal [facility] Reminderson 05-10-2023 Reminders - From: Julia Toribio LPN To: [facility] - Clinical; Sent: 05/10/2023 10:41:47 EDT Show up: 03/26/2028 07:00:00 EDT Subject: colonoscopy recall Due Date/Time: 04/25/2028 07:00:00 EDT Reminder/Recall Patient due for surveillance colonoscopy 04/25/2028. Normal [facility] Pathology Noteon 05-01-2023 Pathology Note [id number] #1.00CD:127 [facility] Outside Colonoscopyon 2022 Outside Colonoscopy [id number] #1.00CD:127 [facility] Lab Reportson 04-25-2023 Lab Reports [id number] #1.00CD:127 [facility] Consent for Procedure/Surger yon 03-29-2023 Consent for Procedure/Surgery [id number] #1.00CD:127 [facility] Facesheeton 03-29-2023 Facesheet [id number] #1.00CD:127 [facility] Transfer Inon 03-29-2023 Transfer In [id number]# 1.00CD:127 [facility] Ambulatory Visit Summaryon 0 03-28-2023 Ambulatory Visit [...] treatment for. RCT (rotator cuff tear) Normal [facility] Consultation Noteon 03-01-20 Consultation Note [id number] #1.00CD:127 Normal [facility] Lab Reportson 03-01-2023 Lab Reports [id number] #1.00CD:127 Normal [facility] Patient Correspondenceon Patient Correspondence [id number] #1.00CD:127 Normal [facility] OCC BLD IMMUNO SCREENon 01-30 OCCULT BLOOD Positive Abnormal NEGATIVE [facility] Comment on above: Performed By: #### O BSCRN #### [facility] [address] [place] [address] Dr. Allen Alonzo INSULINon 02-20-2023 Insulin 17.1 uIU/mL Normal 2.6-24.9 [facility] Comment on above: Performed By: #### I NSULIN #### [facility] [address] [place] [address] Dr. Allen Alonzo CBC AUTO DIFFon 02-19-2023 BASO # 0.1 103/ul Normal 0.0-0.1 [facility] Comment on above: Performed By: #### C BC #### [facility] [address] [address] [address] Allen Alonzo Basophils/100 WBC (Bld) 1.1 % Normal 0.2-2.0 [facility] Comment on above: Performed By: #### C BC #### [facility] [address] [address] [address] Allen Alonzo EO # 0.8 103/ul Critically high 0.0-0.7 [facility] Comment on above: Performed By: #### C BC #### [facility] [address] [place] [address] Dr. Allen Alonzo Eosinophils/100 WBC (Bld) 7.3 % Critically high 0.9-7.[address] [facility] Comment on above: Performed By: #### C BC #### [facility] [address] [place] [address] Dr. Allen Alonzo Erythrocyte distribution width (RBC) [Ratio] 12.3 % Normal 11.0-15.0 [facility] Comment on above: Performed By: #### C BC #### [facility] [address] [place] [address] Dr. Allen Alonzo Hematocrit (Bld) [Volume fraction] 39.3 % Critically low 42.0-54.0 [facility] Comment on above: Performed By: #### C BC #### [facility] [address] [place] [address] Dr. Allen Alonzo Hemoglobin (Bld) [Mass/Vol] 13.7 g/dL Critically low 14.0-18.0 [facility] Comment on above: Performed By: #### C BC #### [facility] [address] [place] [address] Dr. Allen Alonzo IG # 0.02 10e3/ul Normal 0.00-0.[address] [facility] Comment on above: Performed By: #### C BC #### [facility] [address] [place] [address] Dr. Allen Alonzo IG % 0.2 % Normal 0.0-0.[address] [facility] Comment on above: Performed By: #### C BC #### [facility] [address] [address] [address] Allen Alonzo LYMPH # 4.8 103/ul Critically high 1.2-3.8 [facility] Comment on above: Performed By: #### C BC #### [facility] [address] [place] [address] Dr. Allen Alonzo Lymphocytes/100 WBC (Bld) 43.2 % Normal 20.5-60.0 [facility] Comment on above: Performed By: #### C BC #### [facility] [address] [place] [address] Dr. Allen Alonzo MANUAL DIFF REQ NO Normal [facility] Comment on above: Performed By: #### C BC #### [facility] [address] [place] [address] Dr. Allen Alonzo MCH (RBC) [Entitic mass] 32.0 pg Normal 25.9-34.[address] [facility] Comment on above: Performed By: #### C BC #### [facility] [address] [place] [address] Dr. Allen Alonzo MCHC (RBC) [Mass/Vol] 34.9 g/dL Normal 29.9-35.[address] [facility] Comment on above: Performed By: #### C BC #### [facility] [address] [place] [address] Dr. Allen Alonzo MCV (RBC) [Entitic vol] 91.8 fL Normal 80.0-94.[address] [facility] Comment on above: Performed By: #### C BC #### [facility] [address] [place] [address] Dr. Allen Alonzo MONO # 0.8 103/ul Normal 0.3-0.[address] [facility] Comment on above: Performed By: #### C BC #### [facility] [address] [place] [address] Dr. Allen Alonzo Monocytes/100 WBC (Bld) 6.7 % Normal 1.7-12.[address] [facility] Comment on above: Performed By: #### C BC #### [facility] [address] [place] [address] Dr. Allen Alonzo NEUT # 4.6 103/ul Normal 1.4-6.5 [facility] Comment on above: Performed By: #### C BC #### [facility] [address] [address] [address] Allen Alonzo Neutrophils/100 WBC (Bld) 41.5 % Critically low 43.0-75.0 [facility] Comment on above: Performed By: #### C BC #### [facility] [address] [address] [address] Allen Alonzo Platelet mean volume (Bld) [Entitic vol] 10.6 fL Normal 9.5-13.5 [facility] Comment on above: Performed By: #### C BC #### [facility] [address] [place] [address] Dr. Allen Alonzo PLT 212 103/ul Normal 150-450 [facility] Comment on above: Performed By: #### C BC #### [facility] [address] [address] [address] Allen Alonzo RBC 4.28 106/ul Critically low 4.70-6.10 [facility] Comment on above: Performed By: #### C BC #### [facility] [address] [address] [address] Allen Alonzo WBC 11.2 103/ul Critically high 4.0-11.0 [facility] Comment on above: Performed By: #### C BC #### [facility] [address] [place] [address] Dr. Allen Alonzo FREE T3on 02-19-2023 FREE T3 2.20 pg/mlL Normal 2.18-3.98 [facility] Comment on above: Performed By: #### L IPID, TSH, CMP, T4, URIC, FT3 #### [facility] [address] [place] [address] Dr. Allen Alonzo GLYCOHEMOGLOBIN A1Con 2022 ADA RECOMMENDATION SEE BELOW Normal [facility] Comment on above: Result Comment: ADA RECOMMENDED LIMIT 4.0 - 6.0 ADA THERAPEUTIC TARGET < 7.0 ACTION SUGGESTED > 7.0 Performed By: #### A 1C #### [facility] [address] [address] [address] Allen Alonzo Glucose [Mass/Vol] 183 mg/dL Normal [facility] Comment on above: Performed By: #### A 1C #### [facility] [address] [place], [place] [address] Dr. Allen Alonzo HbA1c (Bld) [Mass fraction] 8.0 % Critically high 4.5-6.2 [facility] Comment on above: Performed By: #### A 1C #### [facility] [address] [address] [address] Allen Alonzo LIPID PROFILEon 02-19-2023 CHOL-HDL RATIO NORM SEE BELOW Normal [facility] Comment on above: Result Comment: 3.3 - 4.4 LOW RISK 4.4 - 7.1 AVERAGE RISK 7.1 - 11.0 MODERATE RISK >11.0 HIGH RISK Performed By: #### L IPID, TSH, CMP, T4, URIC, FT3 #### [facility] [address] [address] [address] Allen Alonzo Cholesterol [Mass/Vol] 181 mg/dL Normal <=200 [facility] Comment on above: Performed By: #### L IPID, TSH, CMP, T4, URIC, FT3 #### [facility] [address] [address] [address] Allen Alonzo Cholesterol in HDL [Mass/Vol] 44 mg/dL Normal 40-60 [facility] Comment on above: Performed By: #### L IPID, TSH, CMP, T4, URIC, FT3 #### [facility] [address] [address] [address] Allen Alonzo Cholesterol in LDL [Mass/Vol] 87.0 mg/dL Normal [facility] Comment on above: Performed By: #### L IPID, TSH, CMP, T4, URIC, FT3 #### [facility] [address] [address] [address] Allen Alonzo Cholesterol.total/Cho lesterol in HDL [Mass ratio] 4.1 {ratio} Normal [facility] Comment on above: Performed By: #### L IPID, TSH, CMP, T4, URIC, FT3 #### [facility] [address] [address] [address] Allen Alonzo HDL NORMAL > or = 60 mg/dl - LOW CARDIOVASCULAR RISK <40 mg/dl - HIGH CARDIOVASCULAR RISK Normal [facility] Comment on above: Performed By: #### L IPID, TSH, CMP, T4, URIC, FT3 #### [facility] [address] [address] [address] Allen Alonzo LDL CALC NORMAL SEE BELOW Normal [facility] Comment on above: Result Comment: <100 mg/dl OPTIMAL 100 - 129 mg/dl NEAR OR ABOVE OPTIMAL 130 - 159 mg/dl BORDERLINE HIGH 160 - 189 mg/dl HIGH >190 mg/dl VERY HIGH Performed By: #### L IPID, TSH, CMP, T4, URIC, FT3 #### [facility] [address] [place] [address] Dr. Allen Alonzo Triglyceride [Mass/Vol] 250 mg/dL Critically high <=150 [facility] Comment on above: Performed By: #### L IPID, TSH, CMP, T4, URIC, FT3 #### [facility] [address] [place] [address] Dr. Allen Alonzo VLDL CALC 50.0 mg/dL Normal [facility] Comment on above: Performed By: #### L IPID, TSH, CMP, T4, URIC, FT3 #### [facility] [address] [place] [address] Dr. Allen Alonzo PROF 14(COMP METB)on 023 Albumin [Mass/Vol] 3.6 g/dL Normal 3.4-5.0 [facility] Comment on above: Performed By: #### L IPID, TSH, CMP, T4, URIC, FT3 #### [facility] [address] [place] [address] Dr. Allen Alonzo Albumin/Globulin [Mass ratio] 1.0 {ratio} Normal [facility] Comment on above: Performed By: #### L IPID, TSH, CMP, T4, URIC, FT3 #### [facility] [address] [place] [address] Dr. Allen Alonzo ALP [Catalytic activity/Vol] 97 U/L Normal 46-116 [facility] Comment on above: Performed By: #### L IPID, TSH, CMP, T4, URIC, FT3 #### [facility] [address] [place] [address] Dr. Allen Alonzo ALT [Catalytic activity/Vol] 61 U/L Normal 16-63 [facility] Comment on above: Performed By: #### L IPID, TSH, CMP, T4, URIC, FT3 #### [facility] [address] [place] [address] Dr. Allen Alonzo Anion gap [Moles/Vol] 14.8 mmol/L Normal [facility] Comment on above: Performed By: #### L IPID, TSH, CMP, T4, URIC, FT3 #### [facility] [address] [place] [address] Dr. Allen Alonzo AST [Catalytic activity/Vol] 31 U/L Normal 15-37 [facility] Comment on above: Performed By: #### L IPID, TSH, CMP, T4, URIC, FT3 #### [facility] [address] [place] [address] Dr. Allen Alonzo Bilirubin [Mass/Vol] 0.5 mg/dL Normal 0.2-1.0 [facility] Comment on above: Performed By: #### L IPID, TSH, CMP, T4, URIC, FT3 #### [facility] [address] [place] [address] Dr. Allen Alonzo Calcium [Mass/Vol] 8.8 mg/dL Normal 8.5-10.1 [facility] Comment on above: Performed By: #### L IPID, TSH, CMP, T4, URIC, FT3 #### [facility] [address] [place] [address] Dr. Allen Alonzo Chloride [Moles/Vol] 100 mmol/L Normal 98-107 [facility] Comment on above: Performed By: #### L IPID, TSH, CMP, T4, URIC, FT3 #### [facility] [address] [place] [address] Dr. Allen Alonzo CO2 [Moles/Vol] 28.2 mmol/L Normal 21.0-32.0 [facility] Comment on above: Performed By: #### L IPID, TSH, CMP, T4, URIC, FT3 #### [facility] [address] [place] [address] Dr. Allen Alonzo Creatinine [Mass/Vol] 0.91 mg/dL Normal 0.70-1.30 [facility] Comment on above: Performed By: #### L IPID, TSH, CMP, T4, URIC, FT3 #### [facility] [address] [place] [address] Dr. Allen Alonzo EGFR-AF COLOMBIAN >60 Normal >=60 [facility] Comment on above: Performed By: #### L IPID, TSH, CMP, T4, URIC, FT3 #### [facility] [address] [place] [address] Dr. Allen Alonzo EGFR-NON AF [place]BIAN >60 Normal >=60 [facility] Comment on above: Performed By: #### L IPID, TSH, CMP, T4, URIC, FT3 #### [facility] [address] [place] [address] Dr. Allen Alonzo Globulin (S) [Mass/Vol] 3.5 g/dL Normal [facility] Comment on above: Performed By: #### L IPID, TSH, CMP, T4, URIC, FT3 #### [facility] [address] [place] [address] Dr. Allen Alonzo Glucose [Mass/Vol] 132 mg/dL Critically high 74-106 [facility] Comment on above: Performed By: #### L IPID, TSH, CMP, T4, URIC, FT3 #### [facility] [address] [place] [address] Dr. Allen Alonzo Potassium [Moles/Vol] 4.0 mmol/L Normal 3.5-5.1 [facility] Comment on above: Performed By: #### L IPID, TSH, CMP, T4, URIC, FT3 #### [facility] [address] [place] [address] Dr. Allen Alonzo Protein [Mass/Vol] 7.1 g/dL Normal 6.4-8.2 [facility] Comment on above: Performed By: #### L IPID, TSH, CMP, T4, URIC, FT3 #### [facility] [address] [place] [address] Dr. Allen Alonzo Sodium [Moles/Vol] 139 mmol/L Normal 136-145 [facility] Comment on above: Performed By: #### L IPID, TSH, CMP, T4, URIC, FT3 #### [facility] [address] [place] [address] Dr. Allen Alonzo Urea nitrogen [Mass/Vol] 13.0 mg/dL Normal 7.0-18.0 [facility] Comment on above: Performed By: #### L IPID, TSH, CMP, T4, URIC, FT3 #### [facility] [address] [place] [address] Dr. Allen Alonzo Urea nitrogen/Creatinine [Mass ratio] 14.3 mg/mg Normal [facility] Comment on above: Performed By: #### L IPID, TSH, CMP, T4, URIC, FT3 #### [facility] [address] [place] [address] Dr. Allen Alonzo T4on 02-19-2023 T4 [Mass/Vol] 7.10 ug/dL Normal 4.50-12.10 [facility] Comment on above: Performed By: #### C BC #### [facility] [address] [place] [address] Dr. Allen Alonzo TSHon 02-19-2023 TSH 3.600 uIU/mL Normal 0.358-3.740 [facility] Comment on above: Performed By: #### L IPID, TSH, CMP, T4, URIC, FT3 #### [facility] [address] [place] [address] Dr. Allen Alonzo URIC ACID SERUMon 02-19-2023 Urate [Mass/Vol] 6.4 mg/dL Normal 3.5-7.2 [facility] Comment on above: Performed By: #### C BC #### [facility] [address] [place] [address] Dr. Allen Alonzo BNPon 02-13-2023 Natriuretic peptide B (Bld) [Mass/Vol] 24.0 pg/mL Normal <=900.[address] [facility] Comment on above: Performed By: #### C BC #### [facility] [address] [place] [address] Dr. Allen Alonzo CBC AUTO DIFFon 02-13-2023 BASO # 0.1 103/ul Normal 0.0-0.1 [facility] Comment on above: Performed By: #### C BC #### [facility] [address] [place] [address] Dr. Allen Alonzo Basophils/100 WBC (Bld) 0.8 % Normal 0.2-2.0 [facility] Comment on above: Performed By: #### C BC #### [facility] [address] [place] [address] Dr. Allen Alonzo EO # 0.8 103/ul Critically high 0.0-0.7 [facility] Comment on above: Performed By: #### C BC #### [facility] [address] [place] [address] Dr. Allen Alonzo Eosinophils/100 WBC (Bld) 6.5 % Normal 0.9-7.0 [facility] Comment on above: Performed By: #### C BC #### [facility] [address] [place] [address] Dr. Allen Alonzo Erythrocyte distribution width (RBC) [Ratio] 12.6 % Normal 11.0-15.0 [facility] Comment on above: Performed By: #### C BC #### [facility] [address] [place] [address] Dr. Allen Alonzo Hematocrit (Bld) [Volume fraction] 43.8 % Normal 42.0-54.0 [facility] Comment on above: Performed By: #### C BC #### [facility] [address] [place] [address] Dr. Allen Alonzo Hemoglobin (Bld) [Mass/Vol] 14.6 g/dL Normal 14.0-18.0 [facility] Comment on above: Performed By: #### C BC #### [facility] [address] [place] [address] Dr. Allen Alonzo IG # 0.04 10e3/ul Critically high 0.00-0.03 [facility] Comment on above: Performed By: #### C BC #### [facility] [address] [place] [address] Dr. Allen Alonzo IG % 0.3 % Normal 0.0-0.5 [facility] Comment on above: Performed By: #### C BC #### [facility] [address] [place] [address] Dr. Allen Alonzo LYMPH # 3.6 103/ul Normal 1.2-3.[address] [facility] Comment on above: Performed By: #### C BC #### [facility] [address] [place] [address] Dr. Allen Alonzo Lymphocytes/100 WBC (Bld) 31.0 % Normal 20.5-60.0 [facility] Comment on above: Performed By: #### C BC #### [facility] [address] [place] [address] Dr. Allen Alonzo MANUAL DIFF REQ NO Normal [facility] Comment on above: Performed By: #### C BC #### [facility] [address] [place] [address] Dr. Allen Alonzo MCH (RBC) [Entitic mass] 31.1 pg Normal 25.9-34.0 [facility] [facility] Comment on above: Performed By: #### C BC #### [facility] [address] [place] [address] Dr. Allen Alonzo MCHC (RBC) [Mass/Vol] 33.3 g/dL Normal 29.9-35.2 [facility] Comment on above: Performed By: #### C BC #### [facility] [address] [place] [address] Dr. Allen Alonzo MCV (RBC) [Entitic vol] 93.4 fL Normal 80.0-94.0 [facility] Comment on above: Performed By: #### C BC #### [facility] [address] [place] [address] Dr. Allen Alonzo MONO # 0.8 103/ul Normal 0.3-0.8 [facility] Comment on above: Performed By: #### C BC #### [facility] [address] [place] [address] Dr. Allen Alonzo Monocytes/100 WBC (Bld) 6.9 % Normal 1.7-12.0 [facility] Comment on above: Performed By: #### C BC #### [facility] [address] [place] [address] Dr. Allen Alonzo NEUT # 6.3 103/ul Normal 1.4-6.5 [facility] Comment on above: Performed By: #### C BC #### [facility] [address] [place] [address] Dr. Allen Alonzo Neutrophils/100 WBC (Bld) 54.5 % Normal 43.0-75.0 [facility] Comment on above: Performed By: #### C BC #### [facility] [address] [place] [address] Dr. Allen Alonzo Platelet mean volume (Bld) [Entitic vol] 10.8 fL Normal 9.5-13.[address] [facility] Comment on above: Performed By: #### C BC #### [facility] [address] [place] [address] Dr. Allen Alonzo PLT 224 103/ul Normal 150-[address] [facility] Comment on above: Performed By: #### C BC #### [facility] [address] [place] [address] Dr. Allen Alonzo RBC 4.69 106/ul Critically low 4.70-6.10 [facility] Comment on above: Performed By: #### C BC #### [facility] [address] [place] [address] Dr. Allen Alonzo WBC 11.5 103/ul Critically high 4.0-11.0 [facility] Comment on above: Performed By: #### C BC #### [facility] [address] [place] [address] Dr. Allen Alonzo [facility] SARS-CoV-2 (COVID-19) RNA ZOLTAN+probe Ql (Unsp spec) Not detected Normal NOT DETECTED [facility] Comment on above: Result Comment: THIS TEST IS NOT APPROVED BY THE FDA. IT HAS BEEN AUTHORIZED FOR USE UNDER AN EMERGENCY USE AUTHORIZATION. Performed By: #### C BC #### [facility] [address] [place] [address] Dr. Allen Alonzo D-DIMERon 02-13-2023 D-DIMER 0.55 mg/L FEU Normal <=0.59 [facility] Comment on above: Performed By: #### C BC #### [facility] [address] [place] [address] Dr. Allen Alonzo D-DIMER COMMENTS SEE BELOW Normal [facility] Comment on above: Result Comment: Incr [...] hospitalization. Performed By: #### C BC #### [facility] [address] [place] [address] Dr. Allen Alonoz INFLUENZA A AND B AGon 02-13 INFLUENZA A AG Negative Normal NEGATIVE SEE COMMENT [facility] Comment on above: Performed By: #### P SASC #### [facility] [address] [place] [address] Dr. Allen Alonzo INFLUENZA B AG Negative Normal NEGATIVE SEE COMMENT [facility] Comment on above: Performed By: #### P SASC #### [facility] [address] [place] [address] Dr. Allen Alonzo LACTATE/LACTIC ACIDon 2022 Lactate [Moles/Vol] 2.0 mmol/L Normal 0.4-2.0 [facility] Comment on above: Performed By: #### C BC #### [facility] [address] [address] [address] Allen Alonzo PROF 14(COMP METB)on 023 Albumin [Mass/Vol] 3.7 g/dL Normal 3.4-5.0 [facility] Comment on above: Performed By: #### P SASC #### [facility] [address] [address] [address] Allen Alonzo Albumin/Globulin [Mass ratio] 1.1 {ratio} Normal [facility] Comment on above: Performed By: #### P SASC #### [facility] [address] [address] [address] Allen Alonzo ALP [Catalytic activity/Vol] 96 U/L Normal 46-116 [facility] Comment on above: Performed By: #### P SASC #### [facility] [address] [address] [address] Allen Alonzo ALT [Catalytic activity/Vol] 80 U/L Critically high 16-63 [facility] Comment on above: Performed By: #### P SASC #### [facility] [address] [address] [address] Allen Alonzo Anion gap [Moles/Vol] 16.7 mmol/L Normal [facility] Comment on above: Performed By: #### P SASC #### [facility] [address] [address] [address] Allen Alonzo AST [Catalytic activity/Vol] 55 U/L Critically high 15-37 [facility] Comment on above: Performed By: #### P SASC #### [facility] [address] [address] [address] Allen Alonzo Bilirubin [Mass/Vol] 0.5 mg/dL Normal 0.2-1.0 [facility] Comment on above: Performed By: #### P SASC #### [facility] [address] [address] [address] Allen Alonzo Calcium [Mass/Vol] 9.3 mg/dL Normal 8.5-10.1 [facility] Comment on above: Performed By: #### P SASC #### [facility] [address] [address] [address] Allen Alonzo Chloride [Moles/Vol] 102 mmol/L Normal 98-107 [facility] Comment on above: Performed By: #### P SASC #### [facility] [address] [address] [address] Allen Alonzo CO2 [Moles/Vol] 26.6 mmol/L Normal 21.0-32.0 [facility] Comment on above: Performed By: #### P SASC #### [facility] [address] [place] [address] Dr. Allen Alonzo Creatinine [Mass/Vol] 0.96 mg/dL Normal 0.70-1.30 [facility] Comment on above: Performed By: #### P SASC #### [facility] [address] [place] [address] Dr. Allen Alonzo EGFR-AF COLOMBIAN >60 Normal >=60 [facility] Comment on above: Performed By: #### P SASC #### [facility] [address] [address] [address] Allen Alonzo EGFR-NON AF COLOMBIAN >60 Normal >=60 [facility] Comment on above: Performed By: #### P SASC #### [facility] [address] [address] [address] Allen Alonzo Globulin (S) [Mass/Vol] 3.5 g/dL Normal [facility] Comment on above: Performed By: #### P SASC #### [facility] [address] [address] [address] Allen Alonzo Glucose [Mass/Vol] 142 mg/dL Critically high 74-106 [facility] Comment on above: Performed By: #### P SASC #### [facility] [address] [address] [address] Allen Alonzo Potassium [Moles/Vol] 4.3 mmol/L Normal 3.5-5.1 [facility] Comment on above: Performed By: #### P SASC #### [facility] [address] [place] [address] Dr. Allen Alonzo Protein [Mass/Vol] 7.2 g/dL Normal 6.4-8.2 [facility] Comment on above: Performed By: #### P SASC #### [facility] [address] [place] [address] Dr. Allen Alonzo Sodium [Moles/Vol] 141 mmol/L Normal 136-145 [facility] Comment on above: Performed By: #### P SASC #### [facility] [address] [place] [address] Dr. Allen Alonzo Urea nitrogen [Mass/Vol] 11.0 mg/dL Normal 7.0-18.0 [facility] Comment on above: Performed By: #### P SASC #### [facility] [address] [place] [address] Dr. Allen Alonzo Urea nitrogen/Creatinine [Mass ratio] 11.5 mg/mg Normal [facility] Comment on above: Performed By: #### P SASC #### [facility] [address] [place] [address] Dr. Allen Alonzo SYMPTOMATIC COVID-19 ANTIGEN on 02-13-2023 EUA Statement SEE BELOW Normal [facility] Comment on above: Result Comment: This [...] sooner. Performed By: #### C BC #### [facility] [address] [place], [place] [address] Dr. Allen Alonzo SARS-CoV-2 (COVID-19) RNA ZOLTAN+probe Ql (Unsp spec) Negative Normal NEGATIVE [facility] Comment on above: Performed By: #### C BC #### [facility] [address] [place], [place] [address] Dr. Allen Alonzo TROPONIN, HIGH SENSITIVITYon 02-13-2023 HSTROP 5.1 pg/mL Normal 4.0-76.1 [facility] Comment on above: Result Comment: CUT- OFF POINTS HAVE BEEN ESTABLISHED BASED ON THE FOURTH UNIVERSAL DEFINITIONS OF MYOCARDIAL INFARCTION. THE UPPER REFERENCE LIMIT (URL) OF TROPONIN, DEFINED THE 99TH PERCENTILE OF cTnI DISTRIBUTION IN A REFERENCE POPULATION, HAS BEEN CONFIRMED THE DECISION THRESHOLD FOR LA DIAGNOSIS. Performed By: #### C BC #### [facility] [address] [address] [address] Allen Alonzo HSTROP 5.4 pg/mL Normal 4.0-76.1 [facility] Comment on above: Result Comment: CUT- OFF POINTS HAVE BEEN ESTABLISHED BASED ON THE FOURTH UNIVERSAL DEFINITIONS OF MYOCARDIAL INFARCTION. THE UPPER REFERENCE LIMIT (URL) OF TROPONIN, DEFINED THE 99TH PERCENTILE OF cTnI DISTRIBUTION IN A REFERENCE POPULATION, HAS BEEN CONFIRMED THE DECISION THRESHOLD FOR LA DIAGNOSIS. Performed By: #### C BC #### [facility] [address] [place], [place] [address] Dr. Allen Alonzo XR CHEST 2 Von [...] cardiopulmonary process suspected. Electronically authenticated by: WENDY GUTIERREZH Date: 2023-02-13 01:12 Normal [facility] Vital Signs Date Time Vital Sign Value Performing Clinician Mary adorno 03-28-2023 15:27-0400 Blood Pressure Location Horacio NILL [facility] 03-28-2023 15:27-0400 Diastolic blood pressure 84 mm[Hg] Horacio NILL [facility] 03-28-2023 15:27-0400 Heart rate 76 /min Horacio NILL [facility] [place] 03-28-2023 15:27-0400 Respiratory rate 16 /min Horacio NILL [facility] [place] 03-28-2023 15:27-0400 Systolic blood pressure 122 mm[Hg] Horacio NILL [facility] Encounters Encounter Date Encounter Type Care Provider Facility Start: 01-08-2025 End: 01-08-2025 ambulatory [facility] Start: 04-25-2023 End: 04-26-2023 ambulatory Horacio R NILL Facility:CD:[id number] Start: 03-28-2023 End: 03-29-2023 ambulatory Horacio R SAIRAL Facility:[facility] Start: 03-28-2023 End: 03-28-2023 Patient encounter procedure Horacio R NILL [facility] Start: 03-01-2023 ambulatory Horacio SARABIA Facility:[facility] Start: 02-22-2023 End: 02-22-2023 ambulatory EDVIN JAMES Facility: Start: 02-19-2023 End: 02-20-2023 ambulatory EDVIN JAMES Facility:[facility] Start: 02-13-2023 End: 02-13-[address] ANAMARIA MATA . Facility:[facility] Procedures Date Procedure Procedure Detail Performing Clinician Start: 02-19-[address] MAIRA MATA . Comment on above: Performed By: #### P [facility] #### [facility] [address] [place] [address] Dr. Allen Alonzo Start: 01-18-2021 Arthroscopy of shoulder Horacio NILL Arthroscopy of knee Horacio NILL Colonoscopy Horacio NILL Excision of uvula Horacio NI LL Tonsillectomy and adenoidectomy Horacio NILL Immunizations Immunization Date Immunization Notes Care Provider Fa cility 03-01-2021 SARS-CoV-2 (COVID-19 ) mRNA BNT-162b2 vax [facility] NILL [facility] 02-08-2021 SARS-CoV-2 (COVID-19 ) mRNA BNT-162b2 vax Horacio NILL [facility] Payers Date Payer Category Payer Unknown [id number] [id number] [id number] 1965 Unknown [id number] 2.16.84 [id number] 1965 Unknown [id number] 2.16.84 [id number] 1965 Unknown [id number] [id number] 1965 Unknown [id number] 2.16.8 [id number] 1959 Unknown [id number] Social History Date Type Detail Facility Start: 03-28-2023 Tobacco smoking status Never s moked tobacco (finding) [facility] Tobacco smoking status Never [facility] [place] Sex Assigned At Male [facility] Medical Equipment Procedure Code Equipment Code Equipment Origin al Text Equipment Identifier Dates SHOULDER ARTHROS COPY W/ POSSIBLE REPAIR Checo Packer DO 01/18/21 Non Biological Shoulder L [id number] FDA Start: 01-18-2021 Functional Status Date Assessment Result Facility 03-28-2023 Functional Status N/A [facility] Progress note 01-08-2025 Note Date & Type Note Facility 01-08-2025 Note Cardiovascular [facility] SUBJECTIVE Chief Complaint Patient presents with Coronary Artery Disease Hypertension Hyperlipidemia Leander Ortiz is a 59 y.o. male here for follow-up. HPI PMHx: CAD (mild with sluggish flow suggestive of microvascular disease), hypertension, hyperlipidemia, gout, prediabetes He has been feeling well since last seen. He was started on Monjaro. He has lost about 48lbs. Not routinely checking BP at home. Denies c/o CP, dyspnea, orthopnea, PND, LE edema, dizziness/LH, palpitations, syncope. Patient Active Problem List Diagnosis Gout Obesity S/P arthroscopy of shoulder Abnormal stress test Sleep apnea Positive fecal occult blood test Essential hypertension Diabetes (CMS/HCC) Arthritis Anxiety Past Medical History: Diagnosis Date Coronary artery disease Diabetes mellitus (CMS/HCC) Hypertension Sleep apnea Family History Problem Relation Name Age of Onset No Known Problems Mother Cancer Father Social History Tobacco Use Smoking status: Never Smokeless tobacco: Never Substance Use Topics Alcohol use: Yes Comment: occasional Drug use: Never Allergies Allergen Reactions Penicillin G Review of Systems Constitutional: Negative for chills, decreased appetite, fever, malaise/fatigue and weight gain. Cardiovascular: Negative for chest pain, dyspnea on exertion, irregular heartbeat, leg swelling, near-syncope, orthopnea, palpitations, paroxysmal nocturnal dyspnea and syncope. Hematologic/Lymphatic: Negative for bleeding problem. Does not bruise/bleed easily. OBJECTIVE Visit Vitals BP 139/78 (BP Location: Left arm, Patient Position: Sitting) Pulse 54 Ht 1.727 m (5' 8 ) Wt 133 kg (293 lb) SpO2 95% BMI 44.55 kg/m??? Smoking Status Never BSA 2.53 m??? Medications: Current Outpatient Medications: allopurinol (Zyloprim) 300 mg tablet, Take 300 mg by mouth in the morning., Disp: , Rfl: colchicine 0.6 mg tablet, Take by mouth in the morning., Disp: , Rfl: glimepiride (Amaryl) 4 mg tablet, Take 4 mg by mouth before breakfast., Disp: , Rfl: metFORMIN (Glucophage) 500 mg tablet, Take 500 mg by mouth in the morning and at bedtime., Disp: , Rfl: Mounjaro 10 mg/0.5 mL pen injector, Inject 10 Units under the skin., Disp: , Rfl: pantoprazole (ProtoNix) 40 mg EC tablet, Take 40 mg by mouth in the morning., Disp: , Rfl: aspirin 81 mg EC tablet, Take 1 tablet (81 mg) by mouth in the morning., Disp: [...] Take 1 tablet (60 mg) by mouth once daily as directed. Do not crush or chew., Disp: 90 tablet, Rfl: 3 nitroglycerin (Nitrostat) 0.4 mg SL tablet, Place 1 tablet (0.4 mg) under the tongue every 5 (five) minutes if needed for chest pain. May repeat dose every 5 minutes for up to 3 doses total., Disp: 100 tablet, Rfl: 0 Physical Exam Constitutional: Appearance: Normal appearance. He is normal weight. HENT: Head: Normocephalic and atraumatic. Right Ear: External ear normal. Left Ear: External ear normal. Eyes: Extraocular Movements: Extraocular movements intact. Pupils: Pupils are equal, round, and reactive to light. Neck: Vascular: No carotid bruit. Cardiovascular: Rate and Rhythm: Normal rate and regular rhythm. Pulses: Normal pulses. Heart sounds: Normal heart sounds. Comments: Occasional premature beats Pulmonary: Effort: Pulmonary effort is normal. Breath sounds: Normal breath sounds. Abdominal: General: Bowel sounds are normal. Palpations: Abdomen is soft. Musculoskeletal: General: Normal range of motion. Cervical back: Neck supple. Right lower leg: Edema present. Left lower leg: Edema present. Comments: +1BLE edema, compression stockings in place Skin: General: Skin is warm and dry. Neurological: General: No focal deficit present. Mental Status: He is alert and oriented to person, place, and time. Psychiatric: Mood and Affect: Mood normal. Behavior: Behavior normal. Thought Content: Thought content normal. Judgment: Judgment normal. Labs: No results found for: EXTCMP , BMPR1A , CBCDIF , BNP , LASAP , RED No visits with results within 6 Month(s) from this visit. Latest known visit with results is: Admission on 04/04/2023, Discharged on 04/04/2023 Component Date Value Auto WBC 04/04/2023 9.13 RBC 04/04/2023 4.34 Hemoglobin 04/04/2023 13.8 Hematocrit 04/04/2023 40.5 MCV 04/04/2023 93.3 MCH 04/04/2023 31.8 MCHC 04/04/2023 34.1 RDW 04/04/2023 13.4 Platelets 04/04/2023 224 Ventricular Rate 04/04/2023 57 Atrial Rate 04/04/2023 57 SC Interval 04/04/2023 176 QRS DURATION 04/04/2023 92 QT Interval (more content not included)... [facility] Progress note 01-08-2025 Note Date & Type Note Facility 01-08-2025 Note Patient here for 1.5 year follow. Patient state he is not having any cardiac issues at this time. Review of Systems Constitutional: Negative. [facility] Clinical Note 03-28-2023 Note Date & [...] week, 01/11/2021 Employment/School Employed, Work/School description: [employer] 01/11/2021 Substance Abuse - Denies Substance Abuse, 01/11/2021 Tobacco - Denies Toba (more content not included)... [facility] Comment on above: Result Comment: Elec tronically Signed By: NO LUIS, Horacio Augustine\Date and Time Signed: 03/28/23 15:58 EDT Evaluation + Plan note Note Date & Type Note Facility Evaluation + Plan note No data available for this section [facility] Discharge instructions Note Date & Type Note Facility Hospital Discharge instructions No data available for this section [facility] Progress note Note Date & Type Note Facility Progress note No data available for this section [facility] Summary Purpose Family History No Family History Records FoundNo Family History Records FoundNo Family History Records Found Advance Directives No Advanced Directives Records FoundNo Advanced Directives Records FoundNo Advanced Directives Records Found Additional Source Comments (unrecognized sect ion and content) No Status Records FoundNo Status Records FoundNo Status Records Found INFORMATION SOURCE (unrecogn ized section and content) DATE CREATED AUTHOR [facility]/12/2023 [facility] DATE CREATED AUTHOR AUTHOR'S ORGANIZ ATION 05/11/2023 [facility] DATE CREATED AUTHOR AUTHOR'S ORGANIZ ATION 01/09/2025 [facility] Patient Care team informatio n (unrecognized section and content) Personnel Name: Anamaria Mata MD Address: Address: [address] [place] [address] FOR RECORDS PERTAINING TO PATIENTS WHO ARE [...] BE BASED ON THE PRIMARY CLINICAL RECORDS. [facility] [facility]. provides no warranty or guarantee of the accuracy or completeness of information in this document.
[2025-04-24 09:32] LABS: Hematocrit 41.1 % (42.0-54.0); Hemoglobin 14.3 g/dL (14.0-18.0); Immature Granulocytes Abs Auto 0.02 10^3/uL (0.00-0.03); Immature Granulocytes Pct Auto 0.2 % (0.0-0.5); Lymphocytes Absolute Auto 5.0 10^3/uL (1.2-3.8); Mean Corpuscular HGB Conc 34.8 g/dL (29.9-35.2); Mean Corpuscular Hemoglobin 32.6 pg (25.9-34.0); Mean Corpuscular Volume 93.6 fL (80.0-94.0); Platelet Count 187 10^3/uL (150-450); Red Blood Count 4.39 10^6/uL (4.70-6.10); White Blood Count 11.7 10^3/uL (4.0-11.0)
[2025-04-24 12:07] LABS: Alanine Aminotransferase 43 U/L (16-63); Albumin Globulin Ratio 0.9; Albumin Level 3.4 g/dL (3.4-5.0); Alkaline Phosphatase 117 U/L (46-116); Anion Gap 8.6; Aspartate Amino Transferase 29 U/L (15-37); Blood Urea Nitrogen 13.0 mg/dL (7.0-18.0); Calcium 9.3 mg/dL (8.5-10.1); Carbon Dioxide 30.9 mmol/L (21.0-32.0); Chloride 104 mmol/L (98-107); Cholesterol 208 mg/dL (<=200); Estimated GFR (African America >60 (>=60 mL/min/1.73m^2); Estimated GFR (Non-African Ame >60 (>=60 mL/min/1.73m^2); Free T3 2.49 pg/mL (2.18-3.98); Globulin 3.9 g/dL; Glucose 85 mg/dL (74-106); HDL Cholesterol 59 mg/dL (40-60); Potassium 3.5 mmol/L (3.5-5.1); Sodium 140 mmol/L (136-145); Thyroid Stimulating Hormone 3.668 uIU/mL (0.358-3.740); Total Protein 7.3 g/dL (6.4-8.2); Uric Acid 3.4 mg/dL (3.5-7.2)
[2025-04-24 12:19] LABS: VLDL CHOLESTEROL 32.0 mg/dL
[2025-04-24 12:49] LABS: Triglycerides 133 mg/dL (<=150)
== END 2025-04-24 08:52 | disposition home or self-care (01) ==
LOC: LAB 08:53
PROVIDERS: PCP Family Medicine; Visit Provider Family Medicine
DX: Z00.00 Encounter for general adult medical examination without abnormal findings (principal)
CPT/HCPCS: 36415; 80053; 80061; 83036; 84436; 84443; 84481; 84550; 85025; G0103